=== PATIENT | male | born 1940 | race Caucasian/White ===

== ENCOUNTER 2016-11-08 19:29 | Emergency (ER) | payer MEDICARE, OTHER ==
[2016-11-08] MEDS ORDERED: guaiFENesin/CODEINE 5 ML UDC PO STA (20:16)
[2016-11-08] MEDS ORDERED: guaiFENesin/CODEINE 5 ML UDC ONE (20:19)
== END 2016-11-08 20:35 | disposition home or self-care (01) ==
DX: J06.9 Acute upper respiratory infection, unspecified (principal); B97.89 Other viral agents as the cause of diseases classified elsewhere; I11.0 Hypertensive heart disease with heart failure; I50.9 Heart failure, unspecified; E11.9 Type 2 diabetes mellitus without complications; Z79.84 Long term (current) use of oral hypoglycemic drugs; I25.10 Atherosclerotic heart disease of native coronary artery without angina pectoris; Z95.1 Presence of aortocoronary bypass graft; G47.30 Sleep apnea, unspecified
CPT/HCPCS: 71020; 99283; A9270

== ENCOUNTER 2016-12-01 15:44 | Outpatient (CLI) | payer MEDICARE, OTHER | END 2016-12-01 15:45 | disposition home or self-care (01) | DX: G47.33 Obstructive sleep apnea (adult) (pediatric) (principal); R53.83 Other fatigue | CPT/HCPCS: 99214; G0463 ==

== ENCOUNTER 2016-12-14 07:49 | Outpatient (CLI) | payer MEDICARE, OTHER | END 2016-12-14 07:50 | disposition home or self-care (01) | DX: G25.3 Myoclonus (principal); E78.00 Pure hypercholesterolemia, unspecified; E11.9 Type 2 diabetes mellitus without complications ==

== ENCOUNTER 2017-01-08 21:55 | Outpatient (CLI) | payer MEDICARE, OTHER | END 2017-01-08 21:56 | disposition home or self-care (01) | DX: G47.33 Obstructive sleep apnea (adult) (pediatric) (principal); G47.61 Periodic limb movement disorder; Z68.31 Body mass index [BMI] 31.0-31.9, adult ==

== ENCOUNTER 2017-01-26 13:43 | Outpatient (CLI) | payer MEDICARE, OTHER | END 2017-01-26 13:44 | disposition home or self-care (01) | LOC: SC 13:43 | PROVIDERS: ATTEND Nurse Practitioner Family | DX: G47.33 Obstructive sleep apnea (adult) (pediatric) (principal); G47.10 Hypersomnia, unspecified | CPT/HCPCS: 99214; G0463; 99212 ==

== ENCOUNTER 2017-02-24 16:36 | Outpatient (CLI) | payer MEDICARE, OTHER ==
--- NOTE | 2017-02-25 19:51 | XRAY Report ---
FOUR-VIEW CERVICAL SPINE, AP, LATERAL, SWIMMER'S, AND ODONTOID: 02/24/2017 CLINICAL HISTORY: Chronic neck pain. COMPARISON: Cervical spine CT 03/04/2013. FINDINGS: C-spine seen down to C7-T1 level on lateral to swimmer's view. Moderate to severe disk space narrowing is noted at C3-4 with progression as compared to preceding exam. Moderate degree of disk space narrowing is noted at C4-5, unchanged as compared to preceding exam. Moderate degree of disk space narrowing is noted at C5-6 with prominent anterior spur formation. This is unchanged as compared to preceding exam. Significant disk space narrowing is noted at C6-7 with mild anterior spur formation. This is unchanged. Mild spurring of the uncinate processes of C5, C6, and C7. Odontoid process shows no significant abnormality. Sternal wires sutures are seen and anterior mediastinal surgical clips are noted. IMPRESSION: SIGNIFICANT OSTEOARTHRITIS OF THE CERVICAL SPINE IS SEEN. SIGNIFICANT DEGENERATIVE DISC DISEASE IS NOTED AT MULTIPLE LEVELS WITH PROGRESSION AT C3-4 SINCE PRECEDING EXAM OF 03/04/2013. JOB #: [id number] EXT JOB #: [id number] [facility]
== END 2017-02-24 16:37 | disposition home or self-care (01) ==
LOC: DI 16:36
PROVIDERS: ATTEND Internal Medicine
DX: M47.892 Other spondylosis, cervical region (principal); M50.31 Other cervical disc degeneration, high cervical region
CPT/HCPCS: 72040

== ENCOUNTER 2017-03-29 10:00 | Outpatient (CLI) | payer MEDICARE, OTHER | END 2017-03-29 10:01 | disposition home or self-care (01) | LOC: SC 10:00 | PROVIDERS: ATTEND Nurse Practitioner Family | DX: G47.33 Obstructive sleep apnea (adult) (pediatric) (principal); G47.23 Circadian rhythm sleep disorder, irregular sleep wake type | CPT/HCPCS: 99215; G0463; 99212 ==

== ENCOUNTER 2017-04-15 13:17 | Outpatient (CLI) | payer MEDICARE, OTHER ==
[2017-04-15 18:02] LABS: HEMOGLOBIN A1C 0.75 g/dL
[2017-04-15 18:19] LABS: ALBUMIN/GLOBULIN RATIO 1.3 (1.0-2.2); BILIRUBIN,TOTAL 0.6 mg/dL (0.2-1.0); BUN - BLOOD UREA NITROGEN 15 mg/dL (6-20); CALCIUM 9.1 mg/dL (8.5-10.3); CARBON DIOXIDE - CO2 29 mmol/L (21-32); CHLORIDE 104 mmol/L (101-111); CHOL/HDL RATIO 4.5 (<5.0); CHOLESTEROL 125 mg/dL; GFR - MDRD 72 (>89); GLUCOSE 129 mg/dL (70-100); HDL CHOLESTEROL 28 mg/dL; LDL/HDL RATIO 2.4 (<3.6); POTASSIUM 4.4 mmol/L (3.5-5.0); SODIUM 139 mmol/L (135-145); TOTAL PROTEIN 7.1 g/dL (6.7-8.2); TRIGLYCERIDES 153 mg/dL; VLDL CHOLESTEROL 31 mg/dL
== END 2017-04-15 13:18 | disposition home or self-care (01) ==
LOC: LAB.F 13:17
PROVIDERS: ATTEND Internal Medicine
DX: E78.00 Pure hypercholesterolemia, unspecified (principal); E11.51 Type 2 diabetes mellitus with diabetic peripheral angiopathy without gangrene; I10 Essential (primary) hypertension; E29.1 Testicular hypofunction
CPT/HCPCS: 36415; 80053; 80061; 83036; 84403

== ENCOUNTER 2017-04-22 13:55 | Outpatient (CLI) | payer MEDICARE, OTHER ==
--- NOTE | 2017-04-22 17:39 | CT Report ---
CT HEAD WITHOUT CONTRAST: 04/22/2017 CLINICAL INDICATION: Increasing vertigo, right carotid bruit. Axial CT images of the brain were obtained without contrast. In accordance with CT protocol optimization, one or more of the following dose reduction techniques w ere utilized for this exam: automated exposure control, adjustment of mA and/or KV based on patient size, or use of iterative reconstructive technique. COMPARISON: 02/21/2016 The ventricles and sulci again demonstrate symmetric enlargement, compatible with atrophy. The basil ar cisterns are patent. There is no evidence of intracranial hemorrhage, mass effect, or midline kandi ft. The visualized orbital contents are unremarkable. Patchy ethmoid sinus disease is again noted, stable. IMPRESSION: STABLE ATROPHY AND CHRONIC SINUS DISEASE. NO EVIDENCE OF ACUTE HEMORRHAGE OR MASS EFFEC T. JOB #: [id number] EXT JOB #:[id number]
== END 2017-04-22 13:56 | disposition home or self-care (01) ==
LOC: DI 13:55
PROVIDERS: ATTEND Family Medicine
DX: G31.9 Degenerative disease of nervous system, unspecified (principal); J32.9 Chronic sinusitis, unspecified
CPT/HCPCS: 70450

== ENCOUNTER 2017-04-23 10:16 | Outpatient (CLI) | payer MEDICARE, OTHER ==
--- NOTE | 2017-04-23 12:01 | Ultrasound Report ---
CAROTID DUPLEX: 04/23/2017 CLINICAL INDICATION: Bruit. TECHNIQUE: Real-time sonographic vascular imaging was performed by the inside outside sales representative through the carotid arteries utilizing both color-flow and Doppler spectral analysis. Multiple residential sales representative static images were saved for review. Vessel PSV cm/sec 2D Plaque Estimate % ICA/CCA PSV EDV cm/sec % Stenosis RCCA Prox 76.6 -- RCCA Dist 82.2 8 RECA 129 -- RT BULB 50 -- 0.6 10 CIPRIANO Prox 66 -- 0.8 15 CIPRIANO Mid 64 -- 0.78 12 CIPRIANO Dist 88 -- 1.0 20 RVA 39 RVA flow direction: Antegrade. Vessel PSV cm/sec 2D Plaque Estimate % ICA/CCA PSV EDV cm/sec % Stenosis LCCA Prox 137 -- LCCA Dist 78 20 LECA 54 -- LFT BULB 85 -- 1.0 15 LICA Prox 75 -- 0.96 15 LICA Mid 157 -- 2.01 20 LICA Dist 100 -- 1.28 20 LVA 46 LVA flow direction: Antegrade. Velocity criteria are extrapolated from diameter data as defined by the Society of Radiologists in Ultrasound Consensus Conference Radiology 2003; 229; 340-346. Degree of Stenosis % ICA PSV cm/sec Plaque Estimate % ICA/CCA RSV Ratio ICA EDV cm/sec Normal < 125 None < 2.0 < 40 <50 < 125 < 50 < 2.0 < 40 50-69 125 - 130 >/= 50 2.0 - 4.0 40 - 100 >/= 70 but less than near occlusion > 230 >/= 50 > 4.0 > 100 Near occlusion High, low, or undetectable Visible lumen Variable Variable Total occlusion Undetectable No detectable lumen Not applicable Not applicable FINDINGS: RIGHT: There is minimal plaquing in the right carotid bifurcation, without evidence of a focal hemodynamically significant carotid stenosis. LEFT: There is minimal plaquing in the left carotid bifurcation, without evidence of a focal hemodynamically significant carotid stenosis. The vertebral arteries demonstrate antegrade flow bilaterally. IMPRESSION: MINIMAL PLAQUING BILATERALLY, BUT NO EVIDENCE OF A FOCAL HEMODYNAMICALLY SIGNIFICANT CAROTID STENOSIS. MTDD
== END 2017-04-23 10:17 | disposition home or self-care (01) ==
LOC: DI 10:16
PROVIDERS: ATTEND Family Medicine
DX: R42 Dizziness and giddiness (principal); R09.89 Other specified symptoms and signs involving the circulatory and respiratory systems
CPT/HCPCS: 93880

== ENCOUNTER 2017-05-06 08:22 | Outpatient (CLI) | payer MEDICARE, OTHER ==
--- NOTE | 2017-05-06 10:01 | Ultrasound Report ---
LIVER ULTRASOUND: 05/06/2017 CLINICAL INDICATION: Cirrhosis. TECHNIQUE: Real-time scanning was performed with c s s representative static images obtained. COMPARISON: CT 06/15/2011. FINDINGS: The liver measures 14.7 cm. There is a small hypoechoic nodule in the inferior aspect of the right lobe, measuring 1.7 x 1.3 x 1.2 cm, suspicious for neoplasm. Consider MRI of the liver for further evaluation. The common bile duct measures 5 mm. The patient is status post cholecystectomy . The remainder of the liver is echogenic, but the contour is not particularly nodular. IMPRESSION: A 1.7 CM HYPOECHOIC NODULE IN THE INFERIOR RIGHT LOBE OF THE LIVER, SUSPICIOUS FOR NEOPL ASM. FURTHER EVALUATION WITH LIVER MRI IS RECOMMENDED. JOB #: [id number] EXT JOB #:
== END 2017-05-06 08:23 | disposition home or self-care (01) ==
LOC: DI 08:22
PROVIDERS: ATTEND Internal Medicine
DX: K74.69 Other cirrhosis of liver (principal); K76.89 Other specified diseases of liver
CPT/HCPCS: 76705

== ENCOUNTER 2017-05-13 08:08 | Outpatient (CLI) | payer MEDICARE, OTHER ==
[2017-05-13] MEDS ORDERED: IOPAMIDOL-300 100 ML VIAL IVP ONE (09:13)
--- NOTE | 2017-05-13 12:33 | CT Report ---
CT ABDOMEN WITH AND WITHOUT CONTRAST: 05/13/2017 CLINICAL INDICATION: Possible liver lesion on ultrasound. TECHNIQUE: Axial CT images of the abdomen were obtained prior to and following 100 mL Isovue-300, in early arterial, portal venous, and delayed phases. In accordance with CT protocol optimization, one or more of the following dose reduction techniques w ere utilized for this exam: automated exposure control, adjustment of mA and/or KV based on patient size, or use of iterative reconstructive technique. COMPARISON: Ultrasound 05/06/2017, CT 06/15/2011. FINDINGS: Limited evaluation of the lung bases is unremarkable. Abdomen: The liver demonstrates a mildly nodular contour, compatible with cirrhosis. No focal paren chymal lesion is identified on any phase of contrast enhancement. Specifically, no mass is appreciat ed in the inferior right lobe, at the site questioned on ultrasound. No intrahepatic biliary dilatat ion is seen. The patient is status post cholecystectomy. The spleen, pancreas, right kidney, and ad renal glands are unremarkable. The left kidney demonstrates a cortical cyst. Postoperative changes are present at the gastroesophageal junction. No bowel dilatation, free gas, or free fluid is presen t. Osseous structures demonstrate degenerative changes. IMPRESSION: NO FOCAL LIVER MASS APPRECIATED IN THE INFERIOR RIGHT LOBE OF THE LIVER, AT THE SITE QUE STIONED ON ULTRASOUND. JOB #: [id number] EXT JOB #:[id number]
== END 2017-05-13 08:09 | disposition home or self-care (01) ==
LOC: DI 08:08
PROVIDERS: ATTEND Internal Medicine
DX: R16.0 Hepatomegaly, not elsewhere classified (principal)
CPT/HCPCS: 74160; Q9967

== ENCOUNTER 2017-07-07 13:35 | Outpatient (CLI) | payer MEDICARE, OTHER | END 2017-07-07 13:36 | disposition home or self-care (01) | LOC: SC 13:35 | PROVIDERS: ATTEND Nurse Practitioner Family | DX: G47.33 Obstructive sleep apnea (adult) (pediatric) (principal); G47.23 Circadian rhythm sleep disorder, irregular sleep wake type | CPT/HCPCS: 99214; G0463; 99212 ==

== ENCOUNTER 2017-09-09 13:57 | Outpatient (CLI) | payer MEDICARE, OTHER | END 2017-09-09 13:58 | disposition home or self-care (01) | LOC: SC 13:57 | PROVIDERS: ATTEND Nurse Practitioner Family | DX: G47.33 Obstructive sleep apnea (adult) (pediatric) (principal) | CPT/HCPCS: 99214; G0463; 99212 ==

== ENCOUNTER 2017-10-13 10:47 | Outpatient (CLI) | payer MEDICARE, OTHER ==
--- NOTE | 2017-10-13 13:47 | XRAY Report ---
THREE VIEW LEFT FOOT: 10/13/2017 CLINICAL INDICATION: Left foot pain. FINDINGS: AP, lateral, oblique views of the left foot demonstrate mild degenerative changes, with plantar calcaneal spurring. There is no evidence of acute fracture or dislocation. Surgical clips are noted at the level of the ankle. IMPRESSION: MILD OSTEOARTHRITIS. TD: 10/13/2017 13:46
== END 2017-10-13 10:48 | disposition home or self-care (01) ==
LOC: DI 10:47
PROVIDERS: ATTEND Physician Assistant Medical
DX: M19.072 Primary osteoarthritis, left ankle and foot (principal)

== ENCOUNTER 2017-10-21 12:27 | Outpatient (CLI) | payer MEDICARE, OTHER ==
--- NOTE | 2017-10-21 17:15 | XRAY Report ---
THREE VIEW RIGHT HAND: 10/21/2017 CLINICAL INDICATION: Pain. FINDINGS: AP, lateral, oblique views of the right hand demonstrate mild osteoarthritis of the first carpometacarpal and metacarpophalangeal joints. There is no evidence of acute fracture. Surgical clips are noted in the palmar soft tissues of the wrist. IMPRESSION: MILD OSTEOARTHRITIS. TD: 10/21/2017 17:13
== END 2017-10-21 12:28 | disposition home or self-care (01) ==
LOC: DI 12:27
PROVIDERS: ATTEND Nurse Practitioner Family
DX: M19.041 Primary osteoarthritis, right hand (principal); M18.11 Unilateral primary osteoarthritis of first carpometacarpal joint, right hand

== ENCOUNTER 2017-11-08 16:31 | Outpatient (CLI) | payer MEDICARE, OTHER ==
--- NOTE | 2017-11-10 12:06 | Ultrasound Report ---
BILATERAL LOWER EXTREMITY ARTERIAL DUPLEX: 11/08/2017 CLINICAL INDICATION: Pain, left greater than right feet, history of cardiac disease. TECHNIQUE: Real-time sonographic vascular imaging was performed by the machine bobbin winder through the lower extremities utilizing both color-flow and Doppler spectral analysis. Multiple field representative static images were saved for review. RIGHT SIDE SITE PSV WAVEFORM STEN CLASSROOM TECHNOLOGY TECHNICIAN 161 biphasic PSFA 103 biphasic MSFA 145 biphasic DSFA 178 biphasic PFA 312 biphasic POP 49 biphasic SUSI 48 biphasic PLATE GLASS GRINDER 45 biphasic PER 48 biphasic DPA 48 biphasic LEFT SIDE SITE PSV WAVEFORM STEN CLASSROOM TECHNOLOGY TECHNICIAN 89 biphasic PSFA 129 biphasic MSFA 175 biphasic DSFA 92 biphasic PFA 40 biphasic POP 52 biphasic SUSI 44 biphasic PLATE GLASS GRINDER 44 biphasic PER 50 biphasic DPA 73 biphasic FINDINGS RIGHT LEG: Waveforms are diffusely biphasic. There is no evidence of a focal velocity increase to suggest a hemodynamically significant stenosis. LEFT LEG: Waveforms are diffusely biphasic. There is no evidence of a focal velocity increase to suggest a hemodynamically significant stenosis. IMPRESSION: NO EVIDENCE OF A HEMODYNAMICALLY SIGNIFICANT ARTERIAL STENOSIS IN EITHER LEG. BILATERAL BIPHASIC WAVEFORMS, SUGGESTIVE OF INFLOW DISEASE. MTDD
== END 2017-11-08 16:32 | disposition home or self-care (01) ==
LOC: DI 16:31
PROVIDERS: ATTEND Podiatrist
DX: M79.671 Pain in right foot (principal); M79.672 Pain in left foot; E11.51 Type 2 diabetes mellitus with diabetic peripheral angiopathy without gangrene
CPT/HCPCS: 93925

== ENCOUNTER 2017-11-15 15:08 | Outpatient (CLI) | payer MEDICARE, OTHER ==
[2017-11-15 15:44] LABS: CREATININE 0.9 mg/dL (0.6-1.2)
== END 2017-11-15 15:09 | disposition home or self-care (01) ==
LOC: LAB 15:08
PROVIDERS: ATTEND Physician Assistant Medical
DX: B35.1 Tinea unguium (principal); Z79.899 Other long term (current) drug therapy
CPT/HCPCS: 36415; 82565; 84450; 84460

== ENCOUNTER 2018-02-07 11:36 | Outpatient (CLI) | payer MEDICARE, OTHER ==
[2018-02-07 18:54] LABS: ALT ALANINE AMINOTRANSFERASE 27 IU/L (10-60); AST ASPARTATE AMINOTRANSFERASE 26 IU/L (10-42)
== END 2018-02-07 11:37 | disposition home or self-care (01) ==
LOC: LAB.F 11:36
PROVIDERS: ATTEND Physician Assistant Medical
DX: B35.1 Tinea unguium (principal); Z79.899 Other long term (current) drug therapy
CPT/HCPCS: 36415; 84450; 84460

== ENCOUNTER 2018-03-10 10:27 | Outpatient (CLI) | payer MEDICARE, OTHER ==
--- NOTE | 2018-03-10 12:12 | Ultrasound Report ---
Procedure Date: 03/10/2018 Accession Number: [id number] / [id number] Procedure: US - Abdomen Complete CPT Code: FULL RESULT: EXAM: Abdomen Complete DATE: 03/10/2018 11:33 AM CLINICAL HISTORY: HX OF CIRRHOSIS COMPARISON: CT 05/13/2017, ultrasound 05/06/2017 TECHNIQUE: Real-time scanning was performed with static images obtained. FINDINGS: Liver: The liver is echogenic, compatible with fatty infiltration. 16 cm. Main portal vein flow: Hepatopetal. The previously noted nodule in the right lobe of the liver is again seen. It now measures 2.1 x 1.6 x 1.3 cm (previously 1.7 x 1.3 x 1.2 cm). Gallbladder: Status post cholecystectomy. Biliary System: Common bile duct measures 2 mm. No intrahepatic or extrahepatic ductal dilatation. Pancreas: Visualized portion is unremarkable. Kidneys: Right: 11 cm longitudinally. Normal. No contour-deforming mass, stones, or hydronephrosis. Left: 9.5 cm longitudinally. 1.9 cm cortical cyst. No solid renal mass or hydronephrosis. Spleen: 10 cm. Normal in size and echotexture. Aorta and Inferior Vena Cava: Unremarkable. IMPRESSION: Circumscribed nodule in the right lobe of the liver has increased in size, now measuring 2.1 cm. Given the previous lack of CT correlate, consider MRI of the liver for further evaluation. RADIA
== END 2018-03-10 10:28 | disposition home or self-care (01) ==
LOC: DI 10:27
PROVIDERS: ATTEND Neurological Surgery
DX: K74.69 Other cirrhosis of liver (principal); K76.89 Other specified diseases of liver
CPT/HCPCS: 76700

== ENCOUNTER 2018-03-24 13:50 | Outpatient (CLI) | payer MEDICARE, OTHER ==
[2018-03-24 18:14] LABS: ALT ALANINE AMINOTRANSFERASE 33 IU/L (10-60); AST ASPARTATE AMINOTRANSFERASE 27 IU/L (10-42)
== END 2018-03-24 13:51 | disposition home or self-care (01) ==
LOC: LAB.F 13:50
PROVIDERS: ATTEND Physician Assistant Medical
DX: B35.1 Tinea unguium (principal); Z79.899 Other long term (current) drug therapy
CPT/HCPCS: 36415; 84450; 84460

== ENCOUNTER 2018-05-03 11:24 | Outpatient (CLI) | payer MEDICARE, OTHER ==
[2018-05-03 19:16] LABS: ALBUMIN 3.9 g/dL (3.2-5.5); ALBUMIN/GLOBULIN RATIO 1.2 (1.0-2.2); ALKALINE PHOSPHATASE 72 IU/L (42-121); ALT ALANINE AMINOTRANSFERASE 33 IU/L (10-60); AST ASPARTATE AMINOTRANSFERASE 28 IU/L (10-42); BILIRUBIN,TOTAL 0.6 mg/dL (0.2-1.0); BUN - BLOOD UREA NITROGEN 16 mg/dL (6-20); CARBON DIOXIDE - CO2 26 mmol/L (21-32); CHLORIDE 104 mmol/L (101-111); CHOL/HDL RATIO 6.1 (<5.0); CHOLESTEROL 231 mg/dL; CREATININE 0.8 mg/dL (0.6-1.2); GFR - MDRD 93 (>89); GLUCOSE 150 mg/dL (70-100); HDL CHOLESTEROL 38 mg/dL; LDL CHOLESTEROL,CALCULATED 158 mg/dL; LDL/HDL RATIO 4.2 (<3.6); SODIUM 138 mmol/L (135-145); TOTAL PROTEIN 7.1 g/dL (6.7-8.2); VLDL CHOLESTEROL 35 mg/dL
[2018-05-03 20:07] LABS: HEMOGLOBIN A1C 0.83 g/dL; HEMOGLOBIN A1C % 6.9 % (4.6-6.2)
== END 2018-05-03 11:25 | disposition home or self-care (01) ==
LOC: LAB.F 11:24
PROVIDERS: ATTEND Physician Assistant Medical
DX: K74.60 Unspecified cirrhosis of liver (principal); E11.51 Type 2 diabetes mellitus with diabetic peripheral angiopathy without gangrene
CPT/HCPCS: 36415; 80053; 80061; 82043; 83036; 83721

== ENCOUNTER 2018-05-04 12:00 | Outpatient (CLI) | payer MEDICARE, OTHER | END 2018-05-04 12:01 | disposition home or self-care (01) | LOC: LAB.R 12:00 | PROVIDERS: ATTEND Physician Assistant Medical | DX: K74.69 Other cirrhosis of liver (principal); E11.51 Type 2 diabetes mellitus with diabetic peripheral angiopathy without gangrene | CPT/HCPCS: 82043 ==

== ENCOUNTER 2018-09-16 10:16 | Outpatient (CLI) | payer MEDICARE, OTHER | END 2018-09-16 10:17 | disposition home or self-care (01) | LOC: LAB.F 10:16 | PROVIDERS: ATTEND Physician Assistant Medical | DX: E29.1 Testicular hypofunction (principal) | CPT/HCPCS: 36415; 81599; 84402; 84403 ==

== ENCOUNTER 2018-11-23 09:55 | Outpatient (CLI) | payer MEDICARE, OTHER ==
[2018-11-23 17:53] LABS: CHOL/HDL RATIO 6.1 (<5.0); CHOLESTEROL 201 mg/dL; HDL CHOLESTEROL 33 mg/dL; LDL CHOLESTEROL,CALCULATED 138 mg/dL; LDL/HDL RATIO 4.2 (<3.6); VLDL CHOLESTEROL 30 mg/dL
[2018-11-23 18:45] LABS: HB2 TOTAL 15.3 g/dL; HEMOGLOBIN A1C 0.88 g/dL; HEMOGLOBIN A1C % 7.4 % (4.6-6.2)
== END 2018-11-23 09:56 | disposition home or self-care (01) ==
LOC: LAB.F 09:55
PROVIDERS: ATTEND Registered Nurse
DX: E11.319 Type 2 diabetes mellitus with unspecified diabetic retinopathy without macular edema (principal)
CPT/HCPCS: 36415; 80061; 83036; 83721; 84443

== ENCOUNTER 2019-01-03 10:09 | Outpatient (CLI) | payer MEDICARE, OTHER | END 2019-01-03 10:10 | disposition home or self-care (01) | LOC: SC 10:09 | PROVIDERS: ATTEND Nurse Practitioner Family | DX: G47.33 Obstructive sleep apnea (adult) (pediatric) (principal); G47.9 Sleep disorder, unspecified | CPT/HCPCS: 99215; G0463; 99212 ==

== ENCOUNTER 2019-09-20 11:10 | Outpatient (CLI) | payer MEDICARE, OTHER ==
[2019-09-20 17:09] LABS: BILIRUBIN,URINE NEGATIVE (NEGATIVE); GLUCOSE, URINE (UA) NEGATIVE (NEGATIVE); KETONES,URINE (UA) NEGATIVE (NEGATIVE); LEUKOCYTE ESTERASE, URINE NEGATIVE (NEGATIVE); NITRITE,URINE NEGATIVE (NEGATIVE); OCCULT BLOOD,URINE NEGATIVE (NEGATIVE); PROTEIN,URINE NEGATIVE (NEGATIVE); UROBILINOGEN,URINE 0.2 (NORMAL) E.U./dL (NORMAL)
[2019-09-20 17:11] LABS: CALCIUM 9.2 mg/dL (8.5-10.3)
[2019-09-20 17:18] LABS: HB2 TOTAL 14.5 g/dL; HEMOGLOBIN A1C 0.74 g/dL; HEMOGLOBIN A1C % 6.8 % (4.6-6.2)
[2019-09-20 17:36] LABS: BACTERIA,URINE None Seen /HPF (None Seen); CLARITY,URINE CLEAR (CLEAR); RBC,URINE None Seen /HPF (0-5); SQUAMOUS EPITHELIAL CELL,UR NONE SEEN (<= Few)
== END 2019-09-20 11:11 | disposition home or self-care (01) ==
LOC: LAB.S 11:10
PROVIDERS: ATTEND Urology
DX: N32.0 Bladder-neck obstruction (principal); E11.8 Type 2 diabetes mellitus with unspecified complications; N40.0 Benign prostatic hyperplasia without lower urinary tract symptoms; R81 Glycosuria; R39.15 Urgency of urination
CPT/HCPCS: 36415; 80048; 81001; 83036; 85014; 85018; 87086

== ENCOUNTER 2019-10-27 13:04 | Outpatient (CLI) | payer MEDICARE, OTHER ==
[2019-10-27 17:29] LABS: BASOPHILS % (AUTO) 0.6 %; EOSINOPHILS # (AUTO) 0.3 10^3/uL (0.0-0.7); EOSINOPHILS % (AUTO) 4.2 %; HGB - HEMOGLOBIN 13.8 g/dL (14.0-18.0); LYMPHOCYTES # (AUTO) 1.5 10^3/uL (1.5-3.5); LYMPHOCYTES % (AUTO) 23.8 %; MEAN CORPUSCULAR HEMOGLOBIN 30.6 pg (27.0-31.0); MEAN CORPUSCULAR HGB CONC 32.7 g/dL (32.0-36.0); MEAN CORPUSCULAR VOLUME 93.6 fL (80.0-94.0); MEAN PLATELET VOLUME 12.6 fL (7.4-11.4); MONOCYTES # (AUTO) 0.6 10^3/uL (0.0-1.0); MONOCYTES % (AUTO) 9.2 %; NEUTROPHILS # (AUTO) 3.8 10^3/uL (1.5-6.6); NEUTROPHILS % (AUTO) 61.9 %; PLT - PLATELET COUNT 218 10^3/uL (130-450); RED BLOOD COUNT 4.51 10^6/uL (4.70-6.10); RED CELL DISTRIBUTION WIDTH 13.8 % (12.0-15.0); WHITE BLOOD COUNT 6.2 x10^3/uL (4.8-10.8)
[2019-10-27 18:44] LABS: ALBUMIN 4.2 g/dL (3.2-5.5); ALBUMIN/GLOBULIN RATIO 1.3 (1.0-2.2); BILIRUBIN,TOTAL 0.7 mg/dL (0.2-1.0); CALCIUM 9.3 mg/dL (8.5-10.3); CREATININE 0.9 mg/dL (0.6-1.2); TOTAL PROTEIN 7.5 g/dL (6.7-8.2)
== END 2019-10-27 13:05 | disposition home or self-care (01) ==
LOC: LAB.S 13:04
PROVIDERS: ATTEND Physician Assistant Medical
DX: I10 Essential (primary) hypertension (principal); E55.9 Vitamin D deficiency, unspecified; E29.1 Testicular hypofunction; R53.83 Other fatigue
CPT/HCPCS: 36415; 80053; 81599; 82306; 84402; 84403; 84443; 85025

== ENCOUNTER 2020-01-05 11:37 | Outpatient (CLI) | payer MEDICARE, OTHER | END 2020-01-05 11:38 | disposition home or self-care (01) | LOC: LAB 11:37 | PROVIDERS: ATTEND Physician Assistant Medical | DX: E29.1 Testicular hypofunction (principal) | CPT/HCPCS: 36415; 81599; 84402; 84403 ==

== ENCOUNTER 2020-02-16 09:02 | Outpatient (CLI) | payer MEDICARE, OTHER ==
[2020-02-16 14:42] LABS: BASOPHILS # (AUTO) 0.1 10^3/uL (0.0-0.1); BASOPHILS % (AUTO) 0.8 %; EOSINOPHILS # (AUTO) 0.3 10^3/uL (0.0-0.7); EOSINOPHILS % (AUTO) 4.5 %; HGB - HEMOGLOBIN 15.4 g/dL (14.0-18.0); LYMPHOCYTES % (AUTO) 26.9 %; MEAN CORPUSCULAR HEMOGLOBIN 29.6 pg (27.0-31.0); MEAN CORPUSCULAR HGB CONC 31.6 g/dL (32.0-36.0); MEAN CORPUSCULAR VOLUME 93.7 fL (80.0-94.0); MEAN PLATELET VOLUME 12.8 fL (7.4-11.4); MONOCYTES # (AUTO) 0.7 10^3/uL (0.0-1.0); MONOCYTES % (AUTO) 9.5 %; NEUTROPHILS # (AUTO) 4.2 10^3/uL (1.5-6.6); NEUTROPHILS % (AUTO) 57.9 %; PLT - PLATELET COUNT 224 10^3/uL (130-450); RED BLOOD COUNT 5.21 10^6/uL (4.70-6.10); RED CELL DISTRIBUTION WIDTH 14.1 % (12.0-15.0); WHITE BLOOD COUNT 7.3 x10^3/uL (4.8-10.8)
[2020-02-16 15:14] LABS: ALBUMIN 4.3 g/dL (3.2-5.5); ALBUMIN/GLOBULIN RATIO 1.3 (1.0-2.2); ALKALINE PHOSPHATASE 72 IU/L (42-121); ALT ALANINE AMINOTRANSFERASE 42 IU/L (10-60); AST ASPARTATE AMINOTRANSFERASE 30 IU/L (10-42); BILIRUBIN,TOTAL 0.7 mg/dL (0.2-1.0); BUN - BLOOD UREA NITROGEN 18 mg/dL (6-20); CALCIUM 9.3 mg/dL (8.5-10.3); CARBON DIOXIDE - CO2 28 mmol/L (21-32); CHLORIDE 101 mmol/L (101-111); CHOL/HDL RATIO 5.7 (<5.0); CHOLESTEROL 198 mg/dL; GLUCOSE 119 mg/dL (70-100); HDL CHOLESTEROL 35 mg/dL; LDL CHOLESTEROL,CALCULATED 133 mg/dL; LDL/HDL RATIO 3.8 (<3.6); SODIUM 138 mmol/L (135-145); TOTAL PROTEIN 7.5 g/dL (6.7-8.2); VLDL CHOLESTEROL 30 mg/dL
[2020-02-16 15:33] LABS: HB2 TOTAL 16.2 g/dL; HEMOGLOBIN A1C 0.74 g/dL; HEMOGLOBIN A1C % 6.3 % (4.6-6.2)
== END 2020-02-16 09:03 | disposition home or self-care (01) ==
LOC: LAB.S 09:02
PROVIDERS: ATTEND Physician Assistant Medical
DX: I10 Essential (primary) hypertension (principal); E78.00 Pure hypercholesterolemia, unspecified; E55.9 Vitamin D deficiency, unspecified; E11.319 Type 2 diabetes mellitus with unspecified diabetic retinopathy without macular edema; E29.1 Testicular hypofunction; R53.83 Other fatigue
CPT/HCPCS: 36415; 80053; 80061; 81599; 82306; 83036; 83721; 84402; 84403; 84443; 85025

== ENCOUNTER 2020-03-30 10:21 | Emergency (ER) | payer MEDICARE, OTHER ==
--- NOTE | 2020-03-30 10:28 | ED Physician Documentation ---
PD HPI HEAD INJURY - Stated complaint Stated Complaint: HEAD INJ/GLF - History obtained from History obtained from: Patient - History of Present Illness Mechanism of head injury: Fell (He awoke from sleep beside the bed feeling an abrupt injury of his head. His heard a thud and came immediately to the room and saw him with blankets wrapped around his legs. Unclear if he rolled out of bed or was trying to get up partly asleep and fell. says talkative right off but groggy) Where head injury occurred: Home Timing - onset: How many hours ago (1/2), Today Location of injury: Front Quality of pain: Throbbing, Aching Associated symptoms: AMS ( says groggy for few minutes then alert.), Neck pain. No: LOC, Nausea / vomiting Symptoms worsen with: Palpation Contributing factors: No: Anticoagulated, Intoxicated Similar symptoms before: Has not had sx before Review of Systems Constitutional: denies: Fever, Chills Nose: denies: Rhinorrhea / runny nose, Congestion Throat: denies: Sore throat Cardiac: denies: Chest pain / pressure Respiratory: denies: Cough GI: denies: Abdominal Pain, Nausea, Vomiting, Diarrhea Musculoskeletal: reports: Neck pain, Other (abrasion left knee). denies: Back pain Neurologic: reports: Generalized weakness (baseline due to neuropathy, does not feel worse than usual). denies: Focal weakness, Numbness PD PAST MEDICAL HISTORY - Past Medical History Cardiovascular: Congestive heart failure, Hypertension, Coronary artery disease, Other Respiratory: Sleep apnea, CPAP use Endocrine/Autoimmune: Type 2 diabetes GI: GERD, Esophageal varices, Cirrhosis, Other : Nocturia, Frequency, Other HEENT: Chronic vision loss, Chronic hearing loss Psych: Depression Musculoskeletal: Osteoarthritis, Chronic back pain Derm: Other - Past Surgical History Past Surgical History: Yes General: Cholecystectomy, Hiatal hernia repair, Other Ortho: Rotator cuff repair, Carpal Tunnel surgery, Other Cardiovascular: CABG - Present Medications Home Medications: Ambulatory Orders Medication Instructions Recorded Confirmed Esomeprazole Magnesium [Nexium] 40 mg PO BID 03/04/13 11/08/16 Gabapentin [Neurontin] 900 mg PO TID 03/04/13 11/08/16 Venlafaxine [Effexor] 75 mg PO BID 03/04/13 11/08/16 atenoloL [Tenormin] 100 mg PO DAILY 03/04/13 11/08/16 metFORMIN [Glucophage] 500 mg PO DAILY 03/04/13 11/08/16 Albuterol Sulfate [Ventolin Hfa] 8 gm IH Q4H PRN 03/14/14 11/08/16 Desonide 59 ml TP BID 03/14/14 11/08/16 Fluticasone [Flonase] 1 sprays CHAPIS DAILY PRN 03/14/14 11/08/16 Nitroglycerin [Nitrostat] 0.4 mg SL Q5MIN PRN 03/14/14 11/08/16 Simvastatin [Zocor] 80 mg PO QPM 03/14/14 11/08/16 buPROPion [Wellbutrin Sr] 150 mg PO BID 03/14/14 11/08/16 guaiFENesin/CODEINE [Robitussin AC] 5 - 10 ml PO Q6H PRN #120 ml 11/08/16 - Allergies Allergies/Adverse Reactions: Allergies Allergy/AdvReac Type Severity Reaction Status Date / Time No Known Drug Allergies Allergy Verified 03/30/20 10:35 - Social History Does the pt smoke?: No Smoking Status: Never smoker Does the pt drink ETOH?: No Does the pt have substance abuse?: No - Immunizations Immunizations are current?: Yes - POLST Patient has POLST: No PD ED PE NORMAL - Vitals Vital signs reviewed: Yes - General General: Alert and oriented X 3, Well developed/nourished - HEENT HEENT: PERRL, EOMI, Moist mucous membranes, Other (The right forehead shows localized very small abrasion and swelling with tenderness of the soft tissue. There is some mild tenderness in the mid to lower paracervical muscles but not midline per se) - Neck Neck: Supple, no meningeal sign, No adenopathy - Cardiac Cardiac: RRR, No murmur - Respiratory Respiratory: Clear bilaterally - Abdomen Abdomen: Soft, Non tender - Back Back: No spinal TTP - Derm Derm: Normal color, Warm and dry - Extremities Extremities: No deformity (but has superficial abrasion left infrapatellar area), No tenderness to palpate - Neuro Neuro: Alert and oriented X 3, auto garage mechanic 2-12 intact, No motor deficit, No sensory deficit, Normal speech Eye Opening: Spontaneous Motor: Obeys Commands Verbal: Oriented GCS Score: 15 Results - Vitals Vitals: Vital Signs - 24 hr 03/30/20 10:29 Temperature 36.6 C Heart Rate 60 Respiratory 18 Rate Blood Pressure 159/54 H O2 Saturation 100 Oxygen O2 Source Room air - Rads (name of study) head CT Radiology: Prelim report reviewed (No intracranial hemorrhage no acute abnormality), See rad report cervical spine CT Radiology: Prelim report reviewed (No fractures), See rad report PD MEDICAL DECISION MAKING - ED course Complexity details: re-evaluated patient (Still awake and alert without any altered mentation or new pains on recheck. CT scans appear normal.), considered differential (Given some neck discomfort and also a some headache, will obtain imaging of the neck and head.), d/w patient Departure - Departure Disposition: 01 Home, Self Care Clinical Impression: Fall from bed, initial encounter Forehead contusion Qualifiers: Encounter type: initial encounter Qualified Code(s): S00.83XA - Contusion of other part of head, initial encounter Neck muscle strain Qualifiers: Encounter type: initial encounter Qualified Code(s): S16.1XXA - Strain of muscle, fascia and tendon at neck level, initial encounter Condition: Stable Record reviewed to determine appropriate education?: Yes Follow-Up: LYNDA SARGENT PA-C [Primary Care Provider] - Comments: Your scans of the head and neck are normal without any signs of bleeding fracture or acute abnormality. You will likely have a little bit of a headache and some stiffness in the neck. Tylenol ibuprofen as needed for pains.
[2020-03-30] MEDS ORDERED: ACETAMINOPHEN 325 MG TABLET PO STA (10:47)
--- NOTE | 2020-03-30 12:02 | CT Report ---
PROCEDURE: HEAD WO INDICATIONS: fall from bed; frontal contusion/headache TECHNIQUE: Noncontrast 4.5 mm thick angled axial sections acquired from the foramen magnum to the vertex. For r adiation dose reduction, the following was used: automated exposure control, adjustment of mA and/or kV according to patient size. COMPARISON: None. FINDINGS: Image quality: Excellent. CSF spaces: Basal cisterns are patent. No extra-axial fluid collections. Ventricles are normal in size and shape. Brain: No midline shift. No intracranial masses or hemorrhage. Goodman-white matter interface is norm al. Skull and face: Calvarium and visualized facial bones are intact, without suspicious lesions. Sinuses: Visualized sinuses and mastoids are clear. IMPRESSION: No acute intracranial abnormality. Reviewed by: Jenny Montiel MD on 03/30/2020 12:01 PM PDT Approved by: Jenny Montiel MD on 03/30/2020 12:01 PM PDT Station ID: [id number]
--- NOTE | 2020-03-30 12:03 | CT Report ---
PROCEDURE: CERVICAL SPINE WO INDICATIONS: fall from bed, pain neck TECHNIQUE: Noncontrast 3 mm thick sections acquired from the skull base to the T4 level. Sagittal and coronal r eformats were then constructed. For radiation dose reduction, the following was used: automated exp osure control, adjustment of mA and/or kV according to patient size. COMPARISON: None. FINDINGS: Image quality: Excellent. Bones: No fractures or dislocations. Visualized superior ribs are intact. Multilevel degenerative disc and facet disease. Soft tissues: Prevertebral soft tissues are normal in thickness. No paravertebral hematomas. No ap ical pneumothoraces. IMPRESSION: No fracture. Reviewed by: Jenny Montiel MD on 03/30/2020 12:02 PM PDT Approved by: Jenny Montiel MD on 03/30/2020 12:02 PM PDT Station ID: [id number]
[2020-03-30 12:39] VITALS: BP 170/55
== END 2020-03-30 12:36 | disposition home or self-care (01) ==
LOC: ED 10:21
DX: S16.1XXA Strain of muscle, fascia and tendon at neck level, initial encounter (principal); S00.83XA Contusion of other part of head, initial encounter; S80.212A Abrasion, left knee, initial encounter; S00.81XA Abrasion of other part of head, initial encounter; W06.XXXA Fall from bed, initial encounter; Y92.003 Bedroom of unspecified non-institutional (private) residence as the place of occurrence of the external cause; M50.30 Other cervical disc degeneration, unspecified cervical region; E11.40 Type 2 diabetes mellitus with diabetic neuropathy, unspecified; Z79.84 Long term (current) use of oral hypoglycemic drugs; I10 Essential (primary) hypertension
CPT/HCPCS: 70450; 72125; 99284; A9270

== ENCOUNTER 2020-08-06 14:35 | Outpatient (CLI) | payer MEDICARE, OTHER ==
[2020-08-06 19:57] LABS: CALCIUM 9.7 mg/dL (8.5-10.3); CREATININE 1.3 mg/dL (0.6-1.2)
[2020-08-06 19:59] LABS: CREATININE,URINE 180.6 mg/dL; MICROALBUM/CREATININE RATIO,UR 12.2 ug/mg (<30.0); MICROALBUMIN,URINE 2.2 mg/dL (0-300.0)
== END 2020-08-06 14:36 | disposition home or self-care (01) ==
LOC: LAB.S 14:35
PROVIDERS: ATTEND Physician Assistant
DX: E11.319 Type 2 diabetes mellitus with unspecified diabetic retinopathy without macular edema (principal)
CPT/HCPCS: 36415; 80048; 82043; 82570; 83036

== ENCOUNTER 2020-10-24 08:00 | Outpatient (CLI) | payer MEDICARE, OTHER ==
--- NOTE | 2020-10-24 16:06 | XRAY Report ---
PROCEDURE: Wrist 4 View LT INDICATIONS: LEFT WRIST PAIN TECHNIQUE: 4 views of the wrist were acquired. COMPARISON: None FINDINGS: Bones: No fractures or dislocations. No suspicious bony lesions. Mild first CMC degenerative narro wing. Scaphoid view: No visualized fracture. Soft tissues: No suspicious soft tissue calcifications. IMPRESSION: Mild first CMC degenerative narrowing suggestive of arthritis. Reviewed by: Kelli Choudhary MD on 10/24/2020 4:05 PM [facility] Approved by: Kelli Choudhary MD on 10/24/2020 4:05 PM [facility] Station ID: [id number]
== END 2020-10-24 23:59 | disposition home or self-care (01) ==
LOC: DI.N 08:00
PROVIDERS: ATTEND Orthopaedic Surgery
DX: M25.532 Pain in left wrist (principal); M19.032 Primary osteoarthritis, left wrist

== ENCOUNTER 2020-11-04 10:43 | Outpatient (CLI) | payer MEDICARE, OTHER ==
[2020-11-04 16:22] LABS: CALCIUM 9.2 mg/dL (8.5-10.3); CREATININE 1.1 mg/dL (0.6-1.2); POTASSIUM 3.9 mmol/L (3.5-5.0)
== END 2020-11-04 10:44 | disposition home or self-care (01) ==
LOC: LAB.S 10:43
PROVIDERS: ATTEND Physician Assistant
DX: E11.319 Type 2 diabetes mellitus with unspecified diabetic retinopathy without macular edema (principal); E55.9 Vitamin D deficiency, unspecified; E29.1 Testicular hypofunction; R53.83 Other fatigue; E78.00 Pure hypercholesterolemia, unspecified; I25.10 Atherosclerotic heart disease of native coronary artery without angina pectoris; G47.33 Obstructive sleep apnea (adult) (pediatric); R26.81 Unsteadiness on feet
CPT/HCPCS: 36415; 80048; 81599; 82306; 83021; 84402; 84403; 85014; 85018; 85041; 85651

== ENCOUNTER 2021-02-11 13:42 | Outpatient (CLI) | payer MEDICARE, OTHER ==
--- NOTE | 2021-02-11 14:25 | SLEEP CARE CONSULTATION ---
Information from patient questionnaire entered by Lianna Levy. I have reviewed and concur with the information entered by Lianna Levy. This document represents the service I personally performed and the decisions made by , Anu Preciado ARNP. History of Present Illness Service Date and Time: 02/11/2021 1342 Previous diagnosis: Moderate, Obstructive Sleep Apnea-Hypopnea Syndrome AHI: 15.0 (in 2017) Reason for follow up: annual (last seen 12/2018) Equipment type: CPAP Equipment obtained from: [facility] (getting supplies as needed) Mask style: Nasal (over the nose) Backup mask available: Yes (old mask) Prior sleep studies: Yes Year and Where: 2017 - [facility]; 1999 - additional information: FANI CH was diagnosed to have moderate, AHI 15.0, obstructive sleep apnea-hypopnea syndrome and returned today with spouse for CPAP therapy annual follow-up. CPAP Compliance Data - Data Reviewed with Patient Average duration of nightly device use: 6 hr 18 min Compliance rate %: 6.7 (180 days) Current pressure setting (cmH2O): 13-16 (median 13.9, avg 15.9, max 15.9) Humidity settin Heated hose settin Average residual AHI: 11 Average large leak: 10 min 11 sec Subjective Patient concerns: reports: aerophagia (feels bloated all day), mask discomfort (has to adjust it frequently), air blowing in eyes, mask leak noise, dry mouth, nose, throat, other (Snore while using device). denies: condensation in mask/hose, nasal congestion, epistaxis Observed to snore while using device: Yes Current pressure setting perceived as: comfortable On therapy, patient: reports: other (He does not feel any difference) Initial Parmele Sleepiness Scale score: 17 (in 2011) Current Par[place] Sleepiness Scale score: 20 Allergies and Home Medications Home medication list reviewed: Yes (testosterone gel) Review of Systems Review of systems same as previous: No (Liver cancer, Jun 2019, microwaved) Physical Exam Heart Rate: 75 O2 Saturation: 94 Height: 5 ft 7.5 in Weight: 192 lb Body Mass Index: 29.6 BMI Classification: Overweight Impression and Plan 1. Obstructive Sleep Apnea-Hypopnea Syndrome, moderate, with unknown treatment compliance and fair apnea control with elevated residual AHI. We need them to bring in his compliance information. His states he uses it every night and for his few hours nap in the afternoon every day. On CPAP therapy, the patient states he does not notice a difference. He has been using the CPAP for nightly as well as naps daily for several years. The patients pressure will be changed to autoCPAP 14-17 cmH20 for elevation of residual AHI. Patient advised to contact me if pressure change is uncomfortable so that it can be adjusted. Goals for apnea control discussed. Patient states he has to adjust the mask to reduce leaks and make it more comfortable. He would like to try a different mask. I will write for a mask refitting and advised to try a full face mask to see if he can find a better fit. He and his voiced understanding and agreement with plan of care. Patient's apnea severity and rationale for treatment to reduce apnea, improve sleep quality and reduce cardiovascular and cerebrovascular events was reviewed. I also reviewed the benefit of consistent device use of CPAP for hypertension, cardiac disease, and diabetes. * Change auto CPAP pressure to 14-17 cmH2O * Need compliance information * Notify me if snoring with mask or feeling that the pressure is too much or too little * Attempt to lose weight * Call this office if any problems using CPAP * Return for follow up in 1-2 months, or sooner if concerns arise Counseling Topics: Spare mask, Weight loss health impact Visit Type: In Office Time Spent with Patient (minutes): 26 Provider Statement: I spent 100% of the Face to Face Visit with the patient with greater than 50% spent counseling the patient and coordination of care.
== END 2021-02-11 13:43 | disposition home or self-care (01) ==
LOC: SC 13:42
PROVIDERS: ATTEND Nurse Practitioner Family
DX: G47.33 Obstructive sleep apnea (adult) (pediatric) (principal); E66.3 Overweight; Z68.29 Body mass index [BMI] 29.0-29.9, adult
CPT/HCPCS: 99213; G0463; 99212

== ENCOUNTER 2021-04-14 14:01 | Outpatient (CLI) | payer MEDICARE, OTHER ==
--- NOTE | 2021-04-14 16:27 | XRAY Report ---
PROCEDURE: Femur 2V LT INDICATIONS: CONTUSION OF LEFT THIGH TECHNIQUE: 2 views of the femur were acquired. COMPARISON: None. FINDINGS: Bones: No fractures or dislocations. No suspicious bony lesions. Moderate left hip arthritic narro wing. Soft tissues: No suspicious soft tissue calcifications or masses. IMPRESSION: No visualized acute fracture or dislocation. However, occult injury cannot be excluded. Recommend tiana rt interval imaging follow-up in 7-10 days as clinically indicated for additional evaluation. Reviewed by: Kelli Choudhary MD on 04/14/2021 4:25 PM PDT Approved by: Kelli Choudhary MD on 04/14/2021 4:25 PM PDT Station ID: [id number]
== END 2021-04-14 23:59 | disposition home or self-care (01) ==
LOC: DI.S 14:01
PROVIDERS: ATTEND Emergency Medicine
DX: S70.12XA Contusion of left thigh, initial encounter (principal)

== ENCOUNTER 2021-04-15 13:28 | Outpatient (CLI) | payer MEDICARE, OTHER ==
--- NOTE | 2021-04-15 14:12 | SLEEP CARE CONSULTATION ---
Information from patient questionnaire entered by Lianna Levy. I have reviewed and concur with the information entered by Lianna Levy. This document represents the service I personally performed and the decisions made by , Anu Preciado ARNP. History of Present Illness Service Date and Time: 04/15/2021 1328 Previous diagnosis: Moderate, Obstructive Sleep Apnea-Hypopnea Syndrome AHI: 15.0 (in 2017) Reason for follow up: other (6 week with pressure change) Accompanied by: Spouse Equipment type: CPAP Equipment obtained from: [facility] (getting supplies as needed) Mask style: Nasal Backup mask available: Yes (old mask) Last cushion change: unsure Prior sleep studies: Yes Year and Where: 2016 - [facility]; 1994(6) and 2001 - [place] in [facility] additional information: FANI CH was diagnosed to have moderate, AHI 15.0, obstructive sleep apnea-hypopnea syndrome and returned today with for CPAP therapy 6 week with pressure change follow-up. Subjective Patient concerns: reports: aerophagia (never goes down, he is always gassy), mask discomfort, air blowing in eyes, mask leak noise, dry mouth, nose, throat. denies: condensation in mask/hose, nasal congestion, epistaxis Observed to snore while using device: Yes (occasional but not sure how often) Current pressure setting perceived as: too low On therapy, patient: reports: sleeping better, awakening more refreshed, being more awake and alert during the day, more rested overall. denies: drowsiness while driving Initial Britt Sleepiness Scale score: 17 (in 2011) Current Britt Sleepiness Scale score: 22 Allergies and Home Medications Home medication list reviewed: Yes (no changes) Review of Systems Review of systems same as previous: No (fell out of bed 04-14-; L hip hematoma; right arm lacerations) Physical Exam Heart Rate: 79 O2 Saturation: 97 Height: 5 ft 7.5 in Weight: 194 lb Body Mass Index: 29.9 BMI Classification: Overweight Impression and Plan 1. Obstructive Sleep Apnea-Hypopnea Syndrome, moderate, with unknown treatment compliance and unknown apnea control. On CPAP therapy, the patient has better sleep quality and is more rested overall. Patient lost his memory card on the way to the office today. I need this information before I can do any adjustments to his pressure. He states a chronic bloating feeling in his stomach since he started using his CPAP machine. He thinks the pressure might be not strong enough because it is so light in his mask. He is set up to go in for a mask fitting to find a better fitting mask. Once he has his new mask the pressure may feel fine. Once I have seen the compliance download I will let him know if we need to do any adjustments to his pressure. Otherwise, if all is fine, we will follow-up with him in a year. Patient's apnea severity and rationale for treatment to reduce apnea, improve sleep quality and reduce cardiovascular and cerebrovascular events was reviewed. I also reviewed the benefit of consistent device use of CPAP for hypertension, cardiac disease, and diabetes. * Continue auto CPAP pressure at 14-17 cmH2O * Bring in compliance memory chip for download * Notify me if snoring with mask or feeling that the pressure is too much or too little * Attempt to lose weight * Call this office if any problems using CPAP * Return for follow up in 1 year, or sooner if concerns arise Counseling Topics: Spare mask, Weight loss health impact Visit Type: In Office Other Participants: Spouse/Significant Other Time Spent with Patient (minutes): 22 Provider Statement: I spent 100% of the Face to Face Visit with the patient with greater than 50% spent counseling the patient and coordination of care.
== END 2021-04-15 13:29 | disposition home or self-care (01) ==
LOC: SC 13:28
PROVIDERS: ATTEND Nurse Practitioner Family
DX: G47.33 Obstructive sleep apnea (adult) (pediatric) (principal)
CPT/HCPCS: 99213; G0463; 99212

== ENCOUNTER 2021-05-06 15:26 | Outpatient (CLI) | payer MEDICARE, OTHER ==
--- NOTE | 2021-05-06 16:23 | Ultrasound Report ---
PROCEDURE: Duplex Ext Veins Left INDICATIONS: CONTUSION LEFT THIGH TECHNIQUE: Real-time imaging, as well as color and pulse Doppler interrogation, were performed of the lower extr emity deep veins from the inguinal ligament to the popliteal fossa. COMPARISON: None. FINDINGS: The deep veins are normally compressible, and free of intraluminal thrombus. Color and pu lse Doppler demonstrate normal phasic intraluminal flow. There is normal augmentation response to di stal compression maneuver. Hematomas noted in the left lateral proximal thigh soft tissues. IMPRESSION: No evidence of deep vein thrombosis involving the left lower extremity. Reviewed by: Lia Villatoro MD, PhD on 05/06/2021 4:22 PM PDT Approved by: Lia Villatoro MD, PhD on 05/06/2021 4:22 PM PDT Station ID: [id number]
== END 2021-05-06 15:27 | disposition home or self-care (01) ==
LOC: DI 15:26
PROVIDERS: ATTEND Physician Assistant
DX: Z91.89 Other specified personal risk factors, not elsewhere classified (principal); S70.12XA Contusion of left thigh, initial encounter

== ENCOUNTER 2021-08-28 13:18 | Outpatient (CLI) | payer MEDICARE, OTHER ==
[2021-08-28 14:12] VITALS: BP 136/79
--- NOTE | 2021-08-28 14:12 | SLEEP CARE CONSULTATION ---
Information from patient questionnaire entered by Dimitry Perdomo MA. I have reviewed and concur with the information entered by Dimitry Perdomo MA. This document represents the service I personally performed and the decisions made by , Anu Preciado ARNP. History of Present Illness Service Date and Time: 08/28/2021 1318 Previous diagnosis: Moderate, Obstructive Sleep Apnea-Hypopnea Syndrome AHI: 15.0 (in 2017) Reason for follow up: other (4 MONTH F\U, SLEEPY ALL THE TIME) Equipment type: CPAP Equipment obtained from: Other ([facility]; getting supplies as needed) Mask style: Full face Mask brand: Respironics Backup mask available: Yes (old mask) Last cushion change: 4 months Prior sleep studies: Yes Year and Where: 2016 - [facility]; 1994() and 2001 - [place] in [facility] additional information: FANI CH was diagnosed to have moderate, AHI 15.0, obstructive sleep apnea-hypopnea syndrome and returned today with spouse for CPAP therapy 4 month follow-up. Sleep Study - Results Prior sleep studies: Yes Year and Where: 2016 - [facility]; 1994() and 2001 - [place] in [place], [place] CPAP Compliance Data - Data Reviewed with Patient Average duration of nightly device use: 6 HOURS 41 MINUTES Compliance rate %: 75 Current pressure setting (cmH2O): 13 - 16 Humidity settin Heated hose settin Average residual AHI: 9.1 Average large leak: 31 MINUTES 29 SECONDS Subjective Patient concerns: reports: air blowing in eyes, mask leak noise. denies: aerophagia, mask discomfort, condensation in mask/hose, nasal congestion, dry mouth, nose, throat, epistaxis, other (BLOATED) Observed to snore while using device: Yes Current pressure setting perceived as: comfortable On therapy, patient: reports: other (He does not feel a difference with CPAP use). denies: drowsiness while driving Initial [place] Sleepiness Scale score: 17 (in 2011) Current [place] Sleepiness Scale score: 23 (2020) Allergies and Home Medications Known drug allergies: No Drug allergies reviewed: Yes Home medication list reviewed: Yes (no changes) Review of Systems Review of systems same as previous: Yes (no changes) Physical Exam Vital signs obtained and entered by: Refugio PERDOMO CMA AADYLAN Blood Pressure: 136/79 (RIGHT) Cuff size: wrist Heart Rate: 69 O2 Saturation: 96 (CLOTH MASK) Height: 5 ft 7.5 in Weight: 193 lb (WITH SHOES AND CLOTHES) Body Mass Index: 29.7 BMI Classification: Overweight Impression and Plan 1. Obstructive Sleep Apnea-Hypopnea Syndrome, moderate, with good treatment compliance and fair apnea control with elevated residual AHI. On CPAP therapy, the patient has better sleep quality and is more rested overall. The patients pressure will be changed to autoCPAP 14-18 cmH20 for elevation of residual AHI. Patient advised to contact me if pressure change is uncomfortable so that it can be adjusted. Goals for apnea control discussed. Patient's apnea severity and rationale for treatment to reduce apnea, improve sleep quality and reduce cardiovascular and cerebrovascular events was reviewed. I also reviewed the benefit of consistent device use of CPAP for hypertension, cardiac disease and diabetes. Patient was encouraged to lose weight for their overall health and to reduce apneas. * Change auto CPAP pressure to 14-18 cmH2O * Notify me if snoring with mask or feeling that the pressure is too much or too little * Attempt to lose weight * Call this office if any problems using CPAP * Return for follow up in 1-2 months, or sooner if concerns arise Counseling Topics: Spare mask, Weight loss health impact Location of Provider: Office Time Spent with Patient (minutes): 22
== END 2021-08-28 13:19 | disposition home or self-care (01) ==
LOC: SC 13:18
PROVIDERS: ATTEND Nurse Practitioner Family
DX: G47.33 Obstructive sleep apnea (adult) (pediatric) (principal)
CPT/HCPCS: 99213; G0463; 99212

== ENCOUNTER 2021-10-16 13:57 | Outpatient (CLI) | payer MEDICARE, OTHER ==
--- NOTE | 2021-10-16 14:24 | SLEEP CARE CONSULTATION ---
Information from patient questionnaire entered by Dimitry Perdomo MA. I have reviewed and concur with the information entered by Dimitry Perdomo MA. This document represents the service I personally performed and the decisions made by , Anu Prceiado ARNP. History of Present Illness Service Date and Time: 10/16/2021 1357 Previous diagnosis: Moderate, Obstructive Sleep Apnea-Hypopnea Syndrome AHI: 15.0 (in 2017) Reason for follow up: other (2 MONTH F/U, PRESSURE CHANGE) Equipment type: CPAP Equipment obtained from: Other ([facility]; getting supplies as needed) Mask style: Nasal Mask brand: Respironics (Wisp) Backup mask available: Yes (old mask) Last cushion change: 10 days Prior sleep studies: Yes Year and Where: 2016 - [facility]; 1994() and 2001 - [place] in [facility] additional information: FANI CH was diagnosed to have moderate, AHI 15.0, obstructive sleep apnea-hypopnea syndrome and returns via video telehealth visit today with spouse for CPAP therapy two month with pressure change follow-up. Sleep Study - Results Prior sleep studies: Yes Year and Where: 2016 - [facility]; 1994() and 2001 - [place] in [place], [place] CPAP Compliance Data - Data Reviewed with Patient Average duration of nightly device use: 8 HOURS 24 MINUTES Compliance rate %: 100 Current pressure setting (cmH2O): 14-18 Humidity settin Heated hose settin Average residual AHI: 9.8 Central apnea: 1.3 Obstructive apnea: 3.5 Hypopnea: 5.0 Average large leak: 2 HOURS 31 MINUTES Subjective Missed days of use due to: reports: mask issues (better with change to nasal Wisp) Patient concerns: reports: mask leak noise (improved with mask change), dry mouth, nose, throat (occasional). denies: aerophagia, mask discomfort, air blowing in eyes, condensation in mask/hose, nasal congestion, epistaxis, other Observed to snore while using device: No Current pressure setting perceived as: comfortable On therapy, patient: reports: sleeping better, more rested overall. denies: drowsiness while driving Initial Mar[place] Sleepiness Scale score: 17 (in 2011) Current [place] Sleepiness Scale score: 20 Allergies and Home Medications Home medication list reviewed: Yes (no changes) Allergy and home medication list: Allergies No Known Drug Allergies Allergy (Verified 03/30/20 10:35) Review of Systems Review of systems same as previous: No (may have had a TIA) Physical Exam Vital signs obtained and entered by: Telehealth visit to reduce exposure during Covid pandemic Height: 5 ft 7.5 in Weight: 193 lb Body Mass Index: 29.7 BMI Classification: Overweight Impression and Plan 1. Obstructive Sleep Apnea-Hypopnea Syndrome, moderate, with excellent treatment compliance and fair apnea control with elevated residual AHI. On CPAP therapy, the patient has better sleep quality and is more rested overall. Patient has an elevated residual AHI with a large leak over 2 hours which may be contributing to the elevated number of hypopneas. He switched to a Dreamwear Wisp mask and the leaking noises has greatly reduced. His AHI did reduce since his last visit. He is satisfied with current pressure setting and does not want to change it right now. He is still having more daytime fatigue. I again discussed with him doing another titration study in the future but he does not want to do this now. His accompanied him to the appointment and she voiced that he may have had a TIA a few weeks ago. He is being monitored closely at home for this. Patient's apnea severity and rationale for treatment to reduce apnea, improve sleep quality and reduce cardiovascular and cerebrovascular events was reviewed. I also reviewed the benefit of consistent device use of CPAP for hypertension, cardiac disease and diabetes. Patient was encouraged to lose weight for their overall health and to reduce apneas. * Continue auto CPAP pressure at 14-18 cmH2O * Notify me if snoring with mask or feeling that the pressure is too much or too little * Attempt to lose weight * Call this office if any problems using CPAP * Return for follow up in 1 year, or sooner if concerns arise Counseling Topics: Spare mask, Weight loss health impact Visit Type: Telehealth Video Video Type: VSee Patient Location: Home Location of Provider: Office Patient agrees and consents to this telehealth visit type: Yes Patient agrees to have their insurance billed: Yes Time Spent with Patient (minutes): 22 Provider Statement: I spent 100% of the Telehealth Video Call with the patient with greater than 50% spent counseling the patient and coordination of care.
== END 2021-10-16 13:58 | disposition home or self-care (01) ==
LOC: SC 13:57
PROVIDERS: ATTEND Nurse Practitioner Family
DX: G47.33 Obstructive sleep apnea (adult) (pediatric) (principal); E66.3 Overweight; Z68.29 Body mass index [BMI] 29.0-29.9, adult

== ENCOUNTER 2021-10-17 18:09 | Outpatient (CLI) | payer MEDICARE, OTHER ==
[2021-10-17 21:11] LABS: BASOPHILS # (AUTO) 0.1 10^3/uL (0.0-0.1); BASOPHILS % (AUTO) 0.7 %; EOSINOPHILS # (AUTO) 0.3 10^3/uL (0.0-0.7); EOSINOPHILS % (AUTO) 4.4 %; HCT - HEMATOCRIT 39.3 % (42.0-52.0); HGB - HEMOGLOBIN 12.9 g/dL (14.0-18.0); LYMPHOCYTES # (AUTO) 2.1 10^3/uL (1.5-3.5); LYMPHOCYTES % (AUTO) 27.9 %; MEAN CORPUSCULAR HEMOGLOBIN 30.9 pg (27.0-31.0); MEAN CORPUSCULAR HGB CONC 32.8 g/dL (32.0-36.0); MEAN CORPUSCULAR VOLUME 94.2 fL (80.0-94.0); MEAN PLATELET VOLUME 11.7 fL (7.4-11.4); MONOCYTES # (AUTO) 0.7 10^3/uL (0.0-1.0); MONOCYTES % (AUTO) 9.3 %; NEUTROPHILS # (AUTO) 4.3 10^3/uL (1.5-6.6); NEUTROPHILS % (AUTO) 57.2 %; PLT - PLATELET COUNT 210 10^3/uL (130-450); RED BLOOD COUNT 4.17 10^6/uL (4.70-6.10); RED CELL DISTRIBUTION WIDTH 13.8 % (12.0-15.0); WHITE BLOOD COUNT 7.5 x10^3/uL (4.8-10.8)
[2021-10-17 21:13] LABS: ALBUMIN 3.9 g/dL (3.2-5.5); ALBUMIN/GLOBULIN RATIO 1.3 (1.0-2.2); BILIRUBIN,TOTAL 0.5 mg/dL (0.2-1.0); CALCIUM 8.9 mg/dL (8.5-10.3); CREATININE 1.2 mg/dL (0.6-1.2); POTASSIUM 3.8 mmol/L (3.5-5.0); TOTAL PROTEIN 6.8 g/dL (6.7-8.2)
[2021-10-17 21:30] LABS: INR 1.1 (0.8-1.2); PT - PROTHROMBIN TIME 12.5 secs (9.9-12.6)
== END 2021-10-17 18:10 | disposition home or self-care (01) ==
LOC: LAB.S 18:09
PROVIDERS: ATTEND Internal Medicine
DX: K22.711 Barrett's esophagus with high grade dysplasia (principal); K74.69 Other cirrhosis of liver; K76.9 Liver disease, unspecified
CPT/HCPCS: 36415; 80053; 81599; 82105; 85025; 85610

== ENCOUNTER 2022-05-04 09:35 | Outpatient (CLI) | payer MEDICARE, OTHER ==
[2022-05-04 14:51] LABS: BASOPHILS # (AUTO) 0.1 10^3/uL (0.0-0.1); BASOPHILS % (AUTO) 1.1 %; EOSINOPHILS # (AUTO) 0.3 10^3/uL (0.0-0.7); EOSINOPHILS % (AUTO) 4.8 %; HGB - HEMOGLOBIN 12.3 g/dL (14.0-18.0); LYMPHOCYTES # (AUTO) 1.8 10^3/uL (1.5-3.5); LYMPHOCYTES % (AUTO) 25.5 %; MEAN CORPUSCULAR HGB CONC 31.5 g/dL (32.0-36.0); MEAN CORPUSCULAR VOLUME 88.6 fL (80.0-94.0); MEAN PLATELET VOLUME 13.1 fL (7.4-11.4); MONOCYTES # (AUTO) 0.6 10^3/uL (0.0-1.0); MONOCYTES % (AUTO) 8.3 %; NEUTROPHILS # (AUTO) 4.2 10^3/uL (1.5-6.6); NEUTROPHILS % (AUTO) 59.7 %; PLT - PLATELET COUNT 199 10^3/uL (130-450)
[2022-05-04 15:25] LABS: ALBUMIN/GLOBULIN RATIO 1.2 (1.0-2.2); ALKALINE PHOSPHATASE 68 IU/L (42-121); ALT ALANINE AMINOTRANSFERASE 35 IU/L (10-60); AST ASPARTATE AMINOTRANSFERASE 25 IU/L (10-42); BILIRUBIN,TOTAL 0.5 mg/dL (0.2-1.0); BUN - BLOOD UREA NITROGEN 25 mg/dL (6-20); CALCIUM 9.6 mg/dL (8.5-10.3); CARBON DIOXIDE - CO2 31 mmol/L (21-32); CHLORIDE 102 mmol/L (101-111); CHOL/HDL RATIO 4.9 (<5.0); CHOLESTEROL 204 mg/dL; CREATININE 1.1 mg/dL (0.6-1.2); GFR - MDRD 64 (>89); GLUCOSE 157 mg/dL (70-100); HDL CHOLESTEROL 42 mg/dL; LDL CHOLESTEROL,CALCULATED 129 mg/dL; LDL/HDL RATIO 3.1 (<3.6); POTASSIUM 4.3 mmol/L (3.5-5.0); SODIUM 140 mmol/L (135-145); TOTAL PROTEIN 7.3 g/dL (6.7-8.2); TRIGLYCERIDES 164 mg/dL; VLDL CHOLESTEROL 33 mg/dL
[2022-05-04 15:28] LABS: THYROID STIMULATING HORMONE 2.32 uIU/mL (0.34-5.60)
== END 2022-05-04 09:36 | disposition home or self-care (01) ==
LOC: LAB.S 09:35
PROVIDERS: ATTEND Registered Nurse
DX: E29.1 Testicular hypofunction (principal); R53.83 Other fatigue; E11.319 Type 2 diabetes mellitus with unspecified diabetic retinopathy without macular edema; N40.0 Benign prostatic hyperplasia without lower urinary tract symptoms
CPT/HCPCS: 36415; 80053; 80061; 83721; 84153; 84403; 84443; 85025

== ENCOUNTER 2022-06-29 08:00 | Outpatient (CLI) | payer MEDICARE, OTHER ==
--- NOTE | 2022-06-29 16:49 | XRAY Report ---
PROCEDURE: Lumbar Spine 2 View INDICATIONS: LUMBAR RADICULOPATHY TECHNIQUE: 3 views of the lumbar spine were acquired. COMPARISON: None. FINDINGS: Bones: 5 [id number] vertebrae are present. There are multilevel degenerative changes with anter ior osteophytes predominantly in the thoracolumbar spine. The lower lumbar spine has facet arthrosis. There is normal bony alignment. There is anterior height loss of T12 the appearance of a remote comp ression fracture. No suspicious bony lesions. There is degenerative disc disease at L3-4 and L4-5. Soft tissues: Overlying bowel gas pattern is normal. No suspicious soft tissue calcifications. The aorta has atherosclerotic calcifications. IMPRESSION: 1. Multilevel degenerative changes with facet arthrosis. 2. Disc space narrowing at L3-4 and L4-5 consistent with disc disease. None 3. Remote compression fracture of T12. Reviewed by: Tanmay Paez on 06/29/2022 4:48 PM PDT Approved by: Tanmay Paez on 06/29/2022 4:48 PM PDT Station ID: [id number]
== END 2022-06-29 23:59 | disposition home or self-care (01) ==
LOC: DI.S 08:00
PROVIDERS: ATTEND Physician Assistant
DX: M47.25 Other spondylosis with radiculopathy, thoracolumbar region (principal); M47.26 Other spondylosis with radiculopathy, lumbar region; M51.16 Intervertebral disc disorders with radiculopathy, lumbar region; M48.54XD Collapsed vertebra, not elsewhere classified, thoracic region, subsequent encounter for fracture with routine healing; E11.319 Type 2 diabetes mellitus with unspecified diabetic retinopathy without macular edema
CPT/HCPCS: 36415; 80048; 82043; 82570; 83036

== ENCOUNTER 2022-06-29 13:07 | Outpatient (CLI) | payer MEDICARE, OTHER ==
[2022-06-29 14:57] LABS: CALCIUM 9.8 mg/dL (8.5-10.3); CREATININE 1.3 mg/dL (0.6-1.2); POTASSIUM 4.1 mmol/L (3.5-5.0)
[2022-06-29 21:14] LABS: ESTIMATED AVERAGE GLUCOSE 148 mg/dL (70-100); HEMOGLOBIN A1c% 6.8 % (4.27-6.07)
== END 2022-06-29 13:08 | disposition home or self-care (01) ==
LOC: LAB.S 13:07
PROVIDERS: ATTEND Registered Nurse
DX: E11.319 Type 2 diabetes mellitus with unspecified diabetic retinopathy without macular edema (principal)
CPT/HCPCS: 36415; 80048; 82043; 82570; 83036

== ENCOUNTER 2022-08-27 07:51 | Outpatient (CLI) | payer MEDICARE, OTHER ==
--- NOTE | 2022-08-27 10:23 | Ultrasound Report ---
PROCEDURE: Duplex Aorta Complete INDICATIONS: VASCULAR CALCIFICATION TECHNIQUE: Color and pulse Doppler interrogation was performed of the aorta and iliac arterial systems, with jessica FlameStower documentation. COMPARISON: Lumbar spine radiographs 06/29/2022, CT abdomen 05/13/2017 FINDINGS: Aorta: 54-62 cm/sec, with biphasic flow. Proximal aorta diameter 2.8 cm, mid aorta diameter 1.9 cm, distal aorta diameter 1.7 cm. Right lower extremity: Proximal common iliac artery: 52cm/sec, with biphasic flow. Distal common iliac artery: 140 cm/sec, with biphasic flow. Proximal external iliac artery: 169 cm/sec, with biphasic flow. Distal external iliac artery: 95 cm/sec, with biphasic flow. Common femoral artery: 171 cm/sec, with biphasic flow. Goodman-scale imaging description: Moderate plaque Left lower extremity: Proximal common iliac artery: 143 cm/sec, with biphasic flow. Distal common iliac artery: 139 cm/sec, with biphasic flow. Proximal external iliac artery: 206 cm/sec, with biphasic flow. Distal external iliac artery: 183 cm/sec, with biphasic flow. Common femoral artery: 176 cm/sec, with biphasic flow. Goodman-scale imaging description: Moderate plaque IMPRESSION: 1. No abdominal aortic aneurysm visualized. 2. Multifocal vascular calcifications/atherosclerosis. 3. Peak systolic velocities raising the possibility of hemodynamically significant stenosis right com mon iliac artery. Reviewed by: Robb Cheung MD on 08/27/2022 10:22 AM [facility] Approved by: Robb Cheung MD on 08/27/2022 10:22 AM PST Station ID: [id number]
== END 2022-08-27 07:52 | disposition home or self-care (01) ==
LOC: DI 07:51
PROVIDERS: ATTEND Physician Assistant
DX: I70.203 Unspecified atherosclerosis of native arteries of extremities, bilateral legs (principal)
CPT/HCPCS: 93978

== ENCOUNTER 2022-12-11 11:30 | Outpatient (CLI) | payer MEDICARE, OTHER ==
--- NOTE | 2022-12-11 12:10 | SLEEP CARE CONSULTATION ---
Information from patient questionnaire entered by Katherine Harding. I have reviewed and concur with the information entered by Katherine Harding. This document represents the service I personally performed and the decisions made by me, Anu Preciado ARNP. History of Present Illness Service Date and Time: 12/11/2022 1130 Previous diagnosis: Moderate, Obstructive Sleep Apnea-Hypopnea Syndrome AHI: 15.0 (in 2017) Reason for follow up: annual (LAST SEEN 10/2021) Accompanied by: Spouse Equipment type: CPAP (ELIZABETH Dreamstation 2) Equipment obtained from: Other ([facility]; getting supplies as needed) Mask style: Nasal (over the nose) Backup mask available: Yes (old mask, comes unsnapped) Last cushion change: 1 week Prior sleep studies: Yes Year and Where: 2016 - [facility]; 1994() and 2001 - [place] in [facility] additional information: FANI CH was diagnosed to have moderate, AHI 15.0, obstructive sleep apnea-hypopnea syndrome and returned today with spouse for CPAP therapy annual follow-up. Sleep Study - Results Prior sleep studies: Yes Year and Where: 2016 - [email or web address]; 1994() and 2001 - [place] in [place], [place] CPAP Compliance Data - Data Reviewed with Patient Average duration of nightly device use: 8 hours 8 minutes Compliance rate %: 98.9 (09/12/2022-12/10/2022; 89/90 days used) Current pressure setting (cmH2O): 14-18 (avg 17.2, max 18.0) Average residual AHI: 9.8 Central apnea: 2.3 Obstructive apnea: 5.1 Hypopnea: 2.4 Average large leak: 46 secs Subjective Patient concerns: reports: other (nose soreness, improves when he changes cushion). denies: aerophagia, mask discomfort, air blowing in eyes, mask leak noise, condensation in mask/hose, nasal congestion, dry mouth, nose, throat, epistaxis Observed to snore while using device: No Current pressure setting perceived as: comfortable On therapy, patient: reports: other (he does not notice a difference; uses it every night). denies: drowsiness while driving Initial [place] Sleepiness Scale score: 17 (in 2011) Current [place] Sleepiness Scale score: 21 (12/11/22) Allergies and Home Medications Known drug allergies: No Drug allergies reviewed: Yes Home medication list reviewed: Yes (no changes) Allergy and home medication list: Allergies No Known Drug Allergies Allergy (Verified 12/10/22 11:36) Review of Systems Review of systems same as previous: Yes (no changes) Physical Exam Vital signs obtained and entered by: KATHERINE Delaney MA Blood Pressure: 124/60 (LEFT ARM) Cuff size: regular Heart Rate: 71 O2 Saturation: 99 Height: 5 ft 7.5 in Weight: 196 lb 6.4 oz Body Mass Index: 30.3 BMI Classification: Obese Impression and Plan 1. Obstructive Sleep Apnea-Hypopnea Syndrome, moderate, with good treatment compliance and fair apnea control with elevated residual AHI. On CPAP therapy, the patient has better sleep quality and is more rested overall. Patient has elevated residual AHI. His obstructive index is at 5.1, central index 2.3 and hypopnea index at 2.4. He feels he could tolerate an increase in pressure. The patients pressure will be changed to autoCPAP 16-20 cmH20 for elevation of residual AHI. Patient advised to contact me if pressure change is uncomfortable so that it can be adjusted. Goals for apnea control discussed. He states he is getting sores on the bottom of his nose with current nasal cushion. He gets a lot less air leaks and likes the style otherwise. I showed him a Abdirashid DreamWisp mask which is similar with the hose at the top of head and he would like to try this mask. Patient's apnea severity and rationale for treatment to reduce apnea, improve sleep quality and reduce cardiovascular and cerebrovasc ular events was reviewed. I also reviewed the benefit of consistent device use of CPAP for hypertension, cardiac disease and diabetes. Patient asking about the Inspire implantable sleep apnea device. Patient informed that they would have to qualify for this type of therapy. A referral is needed for an ENT specialist who would evaluate if Inspire therapy is indeed right for them. Qualifications to be evaluated for Inspire therapy include a previous diagnosis of moderate to severe obstructive sleep apnea. They must also have tried, failed or have been unable to tolerate CPAP treatment. They should also have a BMI of 32 or less and do not have any other active implantable devices present (like a pacemaker). Patient will need to undergo a sleep endoscopy where they are put under light sedation and the airway is examined by an endoscope to determine the cause of their sleep apnea. If it is determined that Inspire therapy is right for them than they may proceed to implantation. He requested a referral to see if this would be beneficial for him. I will write for the referral as requested. 2. Obesity, unspecified. Currently patients BMI is 30.3. Obesity increases the risk of apnea, CPAP pressure requirements and overall health risks especially cardiovascular and diabetes. Thus patient is advised to lose weight. * Change auto CPAP pressure to 16-20 cmH2O * Mask fitting for a Abdirashid [email or web address] DreamWisp mask * Update supplies * Referral for Inspire Implant with Dr. Keane * Notify me if snoring with mask or feeling that the pressure is too much or too little * Attempt to lose weight * Call this office if any problems using CPAP * Return for follow up in 3 months, or sooner if concerns arise Counseling Topics: Spare mask, Weight loss health impact Follow up with Sleep Care in: 3 months Visit Type: In Office Other Participants: Spouse/Significant Other Time Spent with Patient (minutes): 29 Provider Statement: I spent 100% of the Face to Face Visit with the patient with greater than 50% spent counseling the patient and coordination of care.
[2022-12-11 12:11] VITALS: BP 124/60
== END 2022-12-11 11:31 | disposition home or self-care (01) ==
LOC: SC 11:30
PROVIDERS: ATTEND Nurse Practitioner Family
DX: G47.33 Obstructive sleep apnea (adult) (pediatric) (principal); E66.9 Obesity, unspecified; Z68.30 Body mass index [BMI] 30.0-30.9, adult
CPT/HCPCS: 99213; G0463; 99212

== ENCOUNTER 2022-12-18 07:00 | Outpatient (CLI) | payer MEDICARE, OTHER ==
--- NOTE | 2022-12-18 16:34 | XRAY Report ---
PROCEDURE: Chest 2 View X-Ray INDICATIONS: DRY COUGH TECHNIQUE: 2 views of the chest were acquired. COMPARISON: 06/14/2011. FINDINGS: Surgical changes and devices: Median sternotomy wires and surgical clips are seen.. Lungs and pleura: No pleural effusions or pneumothorax. Lungs are clear. Mediastinum: Mediastinal contours appear normal. Heart size is normal. Bones and chest wall: No suspicious bony lesions. Overlying soft tissues appear unremarkable. IMPRESSION: No acute cardiopulmonary pathology. Reviewed by: Fabio Baker MD on 12/18/2022 4:33 PM PDT Approved by: Fabio Baker MD on 12/18/2022 4:33 PM PDT Station ID: [id number]
== END 2022-12-18 23:59 | disposition home or self-care (01) ==
LOC: DI.S 07:00
PROVIDERS: ATTEND Internal Medicine
DX: R05.9 Cough, unspecified (principal)

== ENCOUNTER 2023-03-04 08:00 | Outpatient (CLI) | payer MEDICARE, OTHER ==
--- NOTE | 2023-03-04 10:47 | XRAY Report ---
PROCEDURE: Chest 2 View X-Ray INDICATIONS: DRY COUGH TECHNIQUE: 2 views of the chest were acquired. COMPARISON: Chest x-ray, 12/18/2022. FINDINGS: Surgical changes and devices: Sternotomy. Lungs and pleura: No pleural effusions or pneumothorax. Lungs are clear. Mediastinum: Mediastinal contours appear normal. Heart size is normal. Bones and chest wall: No suspicious bony lesions. Overlying soft tissues appear unremarkable. IMPRESSION: No acute cardiopulmonary process. Reviewed by: Smiley Jacobo MD on 03/04/2023 10:45 AM PDT Approved by: Smiley Jacobo MD on 03/04/2023 10:45 AM PDT Station ID: [id number]
== END 2023-03-04 23:59 | disposition home or self-care (01) ==
LOC: DI.S 08:00
PROVIDERS: ATTEND Physician Assistant
DX: R05.9 Cough, unspecified (principal)

== ENCOUNTER 2023-03-05 18:33 | Outpatient (CLI) | payer MEDICARE, OTHER | END 2023-03-05 23:59 | disposition critical access hospital (66) | LOC: EMS 18:33 | DX: R20.0 Anesthesia of skin (principal); R07.9 Chest pain, unspecified | CPT/HCPCS: A0425; A0429 ==

== ENCOUNTER 2023-03-05 18:59 | Emergency (ER) | payer MEDICARE, OTHER ==
--- NOTE | 2023-03-05 19:15 | ED Physician Documentation ---
History of Present Illness - Stated complaint Stated Complaint: CHEST PX - Chief complaint Chief Complaint: Cardiac - Additonal information Additional information: 82-year-old male presents emergency department for evaluation of chest pain. He does have a history that includes CABG x2 the first 1 in 1989 and then again in 2008. The patient states that he has not had chest pain for more than 10 years and this morning he woke up with substernal sharp chest pain. He took 2 old nitroglycerin tablets which resolved the pain. However this afternoon about 6 PM he again developed chest pain and subsequently took another nitroglycerin and summoned 911. The patient reports to me that he was seen by an [facility] provider 2 days ago and was told that he had a murmur. He is unclear what the plan is regarding the work-up of that. At this time he denies chest pain. PD PAST MEDICAL HISTORY - Past Medical History Cardiovascular: Congestive heart failure, Hypertension, Coronary artery disease, Other Respiratory: Sleep apnea, CPAP use Endocrine/Autoimmune: Type 2 diabetes GI: GERD, Esophageal varices, Cirrhosis, Other : Nocturia, Frequency, Other HEENT: Chronic vision loss, Chronic hearing loss Psych: Depression Musculoskeletal: Osteoarthritis, Chronic back pain Derm: Other - Past Surgical History Past Surgical History: Yes General: Cholecystectomy, Hiatal hernia repair, Other Ortho: Rotator cuff repair, Carpal Tunnel surgery, Other Cardiovascular: CABG - Present Medications Home Medications: Ambulatory Orders Medication Instructions Recorded Confirmed Acetaminophen with Codeine 12.5 ml PO 03/05/23 03/05/23 [Acetaminophen-Codeine Solution] Albuterol Sulfate [Proair 2 puffs IH Q6HR PRN 03/05/23 03/05/23 Respiclick] Ascorbic Acid [Vitamin C] 250 mg PO DAILY 03/05/23 03/05/23 Cyanocobalamin (Vitamin B-12) 1,000 mcg PO DAILY 03/05/23 03/05/23 [Vitamin B-12] Diclofenac Sodium 1% Gel [Voltaren 50 gm TOP DAILY 03/05/23 03/05/23 Gel] Finasteride [Proscar] 5 mg PO DAILY 03/05/23 03/05/23 Fluticasone [Flonase] 2 sprays CHAPIS DAILY 03/05/23 03/05/23 Gabapentin [Neurontin] 300 mg PO HS 03/05/23 03/05/23 Ketoconazole 2% Cream [Nizoral 2% 1 applic TOP DAILY 03/05/23 03/05/23 Cream] Loratadine [Claritin] 10 mg PO DAILY 03/05/23 03/05/23 Losartan Potassium 25 mg PO DAILY 03/05/23 03/05/23 Nitroglycerin [Nitrostat] 0.4 mg SL [id number] 03/05/23 03/05/23 Omeprazole 40 mg PO DAILY 03/05/23 03/05/23 Tamsulosin HCl [Flomax] 0.4 mg PO QPM 03/05/23 03/05/23 Venlafaxine HCl [Effexor Xr] 150 mg PO DAILY 03/05/23 03/05/23 buPROPion HCL [Wellbutrin Xl] 300 mg PO DAILY 03/05/23 03/05/23 carvediloL [Coreg] 3.125 mg PO QPM 03/05/23 03/05/23 metFORMIN [Glucophage] 500 mg PO DAILY 03/05/23 03/05/23 predniSONE [Deltasone] 20 mg PO BID 03/05/23 03/05/23 - Allergies Allergies/Adverse Reactions: Allergies Allergy/AdvReac Type Severity Reaction Status Date / Time No Known Drug Allergies Allergy Verified 12/10/22 11:36 - Social History Does the pt smoke?: No Smoking Status: Never smoker Does the pt drink ETOH?: No Does the pt have substance abuse?: No - Immunizations Immunizations are current?: Yes - POLST Patient has POLST: No Results - Vitals Vitals: Vital Signs - 24 hr 03/05/23 03/05/23 19:06 19:11 Temperature 36.6 C Heart Rate 78 75 Respiratory 16 16 Rate Blood Pressure 174/66 H 154/59 H O2 Saturation 100 98 Oxygen O2 Source Room air - EKG (time done) 1911 EKG releavant findings:: EKG personally interpreted by author of this note. Relevant findings are: Rate: Rate (enter#) (76) Rhythm: NSR [place]: LAD Intervals: Prolonged MT. No: Prolonged QT Ischemia: Non specific changes Compare to prior EKG: Old EKG unavailable Computer interpretation: Agree with computer - Labs Labs: Laboratory Tests 03/05/23 03/05/23 03/05/23 19:17 19:17 19:17 WBC 11.8 H RBC 3.80 L Hgb 11.6 L Hct 35.2 L MCV 92.6 MCH 30.5 MCHC 33.0 RDW 13.3 Plt Count 228 MPV 9.8 Neut # (Auto) 10.1 H Lymph # (Auto) 1.1 L [place] # (Auto) 0.5 Eos # (Auto) 0.0 Baso # (Auto) 0.0 Absolute Nucleated RBC 0.00 Nucleated RBC % 0.0 Sodium 137 Potassium 4.3 Chloride 103 Carbon Dioxide 26 Anion Gap 8.0 BUN 26 H Creatinine 1.1 Estimated GFR (MDRD) 64 L Glucose 270 H Calcium 8.8 Total Bilirubin 0.4 AST 31 ALT 36 Alkaline Phosphatase 82 Troponin I High Sens 45.9 H* Total Protein 6.8 Albumin 3.4 Globulin 3.4 Albumin/Globulin Ratio 1.0 Lipase 29 // 20:10 WBC RBC Hgb Hct MCV MCH MCHC RDW Plt Count MPV Neut # (Auto) Lymph # (Auto) [place] # (Auto) Eos # (Auto) Baso # (Auto) Absolute Nucleated RBC Nucleated RBC % Sodium Potassium Chloride Carbon Dioxide Anion Gap BUN Creatinine Estimated GFR (MDRD) Glucose Calcium Total Bilirubin AST ALT Alkaline Phosphatase Troponin I High Sens 44.8 H* Total Protein Albumin Globulin Albumin/Globulin Ratio Lipase PD Medical Decision Making - ED course Complexity details: reviewed old records, reviewed results, re-evaluated patient, considered differential, d/w patient ED course: 82-year-old male who has a history of hypertension, diabetes and previous coronary artery disease status post CABG x2 last in 2008 presents emergency department for evaluation of chest pain. 1 episode this morning that resolved after taking 2 doses of nitroglycerin and then again this evening at 6 PM that resolved after taking a single dose of nitroglycerin. The patient is not currently acquainted with a lcsw. Due to a history of Rosado's esophagitis he does not take aspirin. He is also not on a beta- wyatt. His EKG shows a sinus rhythm with a prolonged MT interval but appears nonischemic. His chest x-ray showed no findings to suggest pneumonia, pneumothorax or pleural effusion. Subsequently CBC, electrolytes and troponin were obtained. As interpreted by myself no acute worrisome findings with the exception of an elevated troponin 45. on repeat it remained flat a5 45. However the history is suggestive of unstable angina/ACS/NSTEMI. Patient has been administered 325 mg of aspirin, he was given a single dose of metoprolol 25 mg orally as well as a loading dose of atorvastatin 80 mg. As he is free of chest pain and does not have markedly rising tropes anticoagulation was held at this time We are without cardiology services at [facility] and will reach out to outlying hospitals for cardiology consult and possibly transfer 2106: I spoke on the phone with [facility] lcsw Dr. Nichols. We discussed the case. He feels the patient would best be served by transferring to the ER. I subsequently spoke on the phone with Dr. Quinonez the ED attending who agrees to accept the patient in transport via ALS. Patient and his were informed of plans to transfer and are in agreement. Appropriate SchedulizeRA paperwork completed. Departure - Departure Disposition: 02 Transfer Acute Care Hosp Clinical Impression: Unstable angina Condition: Serious Record reviewed to determine appropriate education?: Yes
[2023-03-05 19:23] LABS: BASOPHILS % (AUTO) 0.2 %; HCT - HEMATOCRIT 35.2 % (42.0-52.0); HGB - HEMOGLOBIN 11.6 g/dL (14.0-18.0); LYMPHOCYTES # (AUTO) 1.1 10^3/uL (1.5-3.5); LYMPHOCYTES % (AUTO) 9.3 %; MEAN CORPUSCULAR HEMOGLOBIN 30.5 pg (27.0-31.0); MEAN CORPUSCULAR VOLUME 92.6 fL (80.0-94.0); MEAN PLATELET VOLUME 9.8 fL (7.4-11.4); MONOCYTES # (AUTO) 0.5 10^3/uL (0.0-1.0); MONOCYTES % (AUTO) 3.9 %; NEUTROPHILS # (AUTO) 10.1 10^3/uL (1.5-6.6); NEUTROPHILS % (AUTO) 85.8 %; PLT - PLATELET COUNT 228 10^3/uL (130-450); RED CELL DISTRIBUTION WIDTH 13.3 % (12.0-15.0); WHITE BLOOD COUNT 11.8 x10^3/uL (4.8-10.8)
[2023-03-05 19:34] LABS: ALBUMIN 3.4 g/dL (3.2-5.5); BILIRUBIN,TOTAL 0.4 mg/dL (0.2-1.0); CALCIUM 8.8 mg/dL (8.5-10.3); CREATININE 1.1 mg/dL (0.6-1.2); POTASSIUM 4.3 mmol/L (3.5-5.0); TOTAL PROTEIN 6.8 g/dL (6.7-8.2)
[2023-03-05] MEDS ORDERED: ASPIRIN CHEW 81 MG TABLET PO STA (19:49)
[2023-03-05] MEDS ORDERED: METOPROLOL TARTRATE 50 MG TABLET PO STA (19:52)
[2023-03-05] MEDS ORDERED: ATORVASTATIN 40 MG TABLET PO STA (19:52)
--- NOTE | 2023-03-05 19:56 | XRAY Report ---
PROCEDURE: Chest 1 View X-Ray INDICATIONS: Chest Pain TECHNIQUE: One view of the chest was acquired. COMPARISON: CXR 03/04/2023. FINDINGS: Surgical changes and devices: Post median sternotomy. Multiple clips in the left upper abdomen.. Lungs and pleura: No pleural effusions or pneumothorax. Lungs are clear. Mediastinum: Mediastinal contours appear normal. Heart size is normal. Bones and chest wall: No suspicious bony lesions. Overlying soft tissues appear unremarkable. IMPRESSION: No acute cardiopulmonary process. Reviewed by: Fermin Cyr MD on 03/05/2023 7:55 PM PDT Approved by: Fermin Cyr MD on 03/05/2023 7:55 PM PDT Station ID: [id number]
[2023-03-05 21:57] VITALS: BP 171/76
== END 2023-03-05 22:20 | disposition short-term general hospital (02) ==
LOC: EDUNIT# → ED 18:59
DX: I20.0 Unstable angina (principal); I10 Essential (primary) hypertension; K22.70 Barrett's esophagus without dysplasia; I25.810 Atherosclerosis of coronary artery bypass graft(s) without angina pectoris; E11.9 Type 2 diabetes mellitus without complications; Z79.84 Long term (current) use of oral hypoglycemic drugs
CPT/HCPCS: 36415; 71045; 80053; 83690; 84484; 85025; 93005; 99285; A9270

== ENCOUNTER 2023-03-05 21:53 | Outpatient (CLI) | payer MEDICARE, OTHER | END 2023-03-05 23:59 | disposition short-term general hospital (02) | LOC: EMS 21:53 | PROVIDERS: ATTEND Registered Nurse | DX: I21.4 Non-ST elevation (NSTEMI) myocardial infarction (principal) | CPT/HCPCS: A0425; A0429 ==

== ENCOUNTER 2023-03-22 12:47 | Outpatient (CLI) | payer MEDICARE, OTHER ==
[2023-03-22 20:17] LABS: INR 1.2 (0.8-1.2); PT - PROTHROMBIN TIME 12.8 secs (9.9-12.6)
[2023-03-22 20:18] LABS: BASOPHILS # (AUTO) 0.1 10^3/uL (0.0-0.1); BASOPHILS % (AUTO) 1.3 %; EOSINOPHILS # (AUTO) 0.5 10^3/uL (0.0-0.7); EOSINOPHILS % (AUTO) 6.6 %; HCT - HEMATOCRIT 37.1 % (42.0-52.0); HGB - HEMOGLOBIN 12.4 g/dL (14.0-18.0); LYMPHOCYTES # (AUTO) 1.9 10^3/uL (1.5-3.5); LYMPHOCYTES % (AUTO) 23.6 %; MEAN CORPUSCULAR HEMOGLOBIN 31.3 pg (27.0-31.0); MEAN CORPUSCULAR HGB CONC 33.4 g/dL (32.0-36.0); MEAN CORPUSCULAR VOLUME 93.7 fL (80.0-94.0); MEAN PLATELET VOLUME 12.1 fL (7.4-11.4); MONOCYTES # (AUTO) 0.6 10^3/uL (0.0-1.0); NEUTROPHILS # (AUTO) 4.7 10^3/uL (1.5-6.6); NEUTROPHILS % (AUTO) 60.2 %; PLT - PLATELET COUNT 200 10^3/uL (130-450); RED BLOOD COUNT 3.96 10^6/uL (4.70-6.10); RED CELL DISTRIBUTION WIDTH 14.2 % (12.0-15.0); WHITE BLOOD COUNT 7.9 x10^3/uL (4.8-10.8)
[2023-03-22 20:39] LABS: ESTIMATED AVERAGE GLUCOSE 154 mg/dL (70-100)
[2023-03-22 20:59] LABS: CREATININE,URINE 99.1 mg/dL; MICROALBUMIN,URINE 0.4 mg/dL (0-300.0)
[2023-03-22 21:01] LABS: ALBUMIN/GLOBULIN RATIO 1.2 (1.0-2.2); ALKALINE PHOSPHATASE 80 IU/L (42-121); ALT ALANINE AMINOTRANSFERASE 34 IU/L (10-60); AST ASPARTATE AMINOTRANSFERASE 30 IU/L (10-42); BILIRUBIN,TOTAL 0.8 mg/dL (0.2-1.0); BUN - BLOOD UREA NITROGEN 36 mg/dL (6-20); CALCIUM 9.3 mg/dL (8.5-10.3); CARBON DIOXIDE - CO2 30 mmol/L (21-32); CHLORIDE 106 mmol/L (101-111); CHOL/HDL RATIO 3.1 (<5.0); CHOLESTEROL 127 mg/dL; CREATININE 1.3 mg/dL (0.6-1.2); GFR - MDRD 53 (>89); GLUCOSE 137 mg/dL (70-100); HDL CHOLESTEROL 41 mg/dL; LDL CHOLESTEROL,CALCULATED 61 mg/dL; LDL/HDL RATIO 1.5 (<3.6); POTASSIUM 4.5 mmol/L (3.5-5.0); SODIUM 141 mmol/L (135-145); TOTAL PROTEIN 7.3 g/dL (6.7-8.2); TRIGLYCERIDES 125 mg/dL; VLDL CHOLESTEROL 25 mg/dL
[2023-03-22 21:06] LABS: THYROID STIMULATING HORMONE 2.8 uIU/mL (0.34-5.60)
[2023-03-22 21:14] LABS: FERRITIN 73.3 ng/mL (23.9-336.2)
[2023-03-22 21:17] LABS: FOLATE 22.94 ng/mL (5.90 - >24.8)
== END 2023-03-22 12:48 | disposition home or self-care (01) ==
LOC: LAB.S 12:47
PROVIDERS: ATTEND Registered Nurse
DX: E11.319 Type 2 diabetes mellitus with unspecified diabetic retinopathy without macular edema (principal); D64.9 Anemia, unspecified; Z13.220 Encounter for screening for lipoid disorders; Z13.228 Encounter for screening for other metabolic disorders; Z13.29 Encounter for screening for other suspected endocrine disorder; Z13.0 Encounter for screening for diseases of the blood and blood-forming organs and certain disorders involving the immune mechanism; I25.110 Atherosclerotic heart disease of native coronary artery with unstable angina pectoris
CPT/HCPCS: 36415; 80053; 80061; 82043; 82570; 82607; 82728; 82746; 83036; 83721; 84443; 85025; 85610

== ENCOUNTER 2023-04-13 13:53 | Outpatient (CLI) | payer MEDICARE, OTHER ==
--- NOTE | 2023-04-13 11:56 | SLEEP CARE CONSULTATION ---
Information from patient questionnaire entered by Katherine Harding. I have reviewed and concur with the information entered by Katherine Harding. This document represents the service I personally performed and the decisions made by me, Anu Preciado ARNP. History of Present Illness Service Date and Time: 04/13/2023 112 Previous diagnosis: Moderate, Obstructive Sleep Apnea-Hypopnea Syndrome AHI: 15.0 (in 2017) Reason for follow up: three month (F/U) Accompanied by: Spouse (Carlee) Equipment type: CPAP (ELIZABETH Dreamstation 2) Equipment obtained from: Other ([facility]; getting supplies as needed) Mask style: Nasal (over the nose) Mask brand: Respironics (Wisp) Backup mask available: Yes (old mask) Last cushion change: yesterday Prior sleep studies: Yes Year and Where: 2016 - [facility]; 1994() and 2001 - [facility] in [place], [place] HPI additional information: FAROOQ CH was diagnosed to have moderate, AHI 15, obstructive sleep apnea- hypopnea syndrome and returns via telehealth visit today for CPAP therapy three month follow-up. Sleep Study - Results Prior sleep studies: Yes Year and Where: 2016 - [facility]; 1994() and 2001 - [facility] in [place], [place] CPAP Compliance Data - Data Reviewed with Patient Average duration of nightly device use: 7 HRS 42 MIN 27SEC Compliance rate %: 90 (01/09/23-04/08/23; 89/90 days used) Current pressure setting (cmH2O): 16-20 (avg 18.6, max 19.5) Average residual AHI: 9.5 (RERA 0.3) Central apnea: 1.0 Obstructive apnea: 2.8 Hypopnea: 5.1 Subjective Missed days of use due to: reports: illness (in hospital) Patient concerns: reports: mask leak noise, nasal congestion. denies: aerophagia, mask discomfort, air blowing in eyes, condensation in mask/hose, dry mouth, nose, throat, epistaxis Observed to snore while using device: No Current pressure setting perceived as: comfortable On therapy, patient: reports: other (He uses CPAP for all sleep; he just had a heart attack) Initial [place] Sleepiness Scale score: 17 (in 2011) Current [place] Sleepiness Scale score: 20 Allergies and Home Medications Known drug allergies: No Drug allergies reviewed: Yes Home medication list reviewed: Yes (see updated list in EMR) Allergy and home medication list: Allergies No Known Drug Allergies Allergy (Verified 04/12/23 10:46) Review of Systems Review of systems same as previous: No (heart attack 3 wks ago; had 5 stents placed) Physical Exam Vital signs obtained and entered by: Katherine Delaney MA Blood Pressure: 135/65 (per pt) Height: 5 ft 7.5 in Weight: 184 lb (per patient) Body Mass Index: 28.3 BMI Classification: Overweight Impression and Plan 1. Obstructive Sleep Apnea-Hypopnea Syndrome, moderate, with good treatment compliance and fair apnea control with elevated residual AHI. His AHI appears to be elevated with mostly hypopneas and he averages large leaks on his CPAP. Farooq also had a heart attack about 3 weeks ago. He is home now and very tired. He uses his CPAP for all sleep but states he does not know of difference in sleep or restfulness without his CPAP. I think the pressure is optimal for him and will not adjust his CPAP today. He will follow up next year. Patient's apnea severity and rationale for treatment to reduce apnea, improve sleep quality and reduce cardiovascular and cerebrovascular events was reviewed. I also reviewed the benefit of consistent device use of CPAP for hypertension, cardiac disease, and diabetes. 2. Overweight, unspecified. Currently patients BMI is 28.3. Obesity increases the risk of apnea, CPAP pressure requirements and overall health risks especially cardiovascular and diabetes. Thus patient is advised to lose weight. * Continue auto CPAP pressure at 16-20 cmH2O * Notify me if snoring with mask or feeling that the pressure is too much or too little * Attempt to lose weight * Call this office if any problems using CPAP * Return for follow up in 1 year, or sooner if concerns arise Counseling Topics: Spare mask, Weight loss health impact Visit Type: Telehealth Phone Video Type: Other (office phone) Patient Location: Home Other Participants: Spouse/Significant Other Location of Provider: Office Patient agrees and consents to this telehealth visit type: Yes Patient agrees to have their insurance billed: Yes Time Spent with Patient (minutes): 25 Provider Statement: I spent 100% of the Telehealth Phone Call with the patient with greater than 50% spent counseling the patient and coordination of care.
[2023-04-13 12:03] VITALS: BP 135/65
== END 2023-04-13 13:54 | disposition home or self-care (01) ==
LOC: SC 13:53
PROVIDERS: ATTEND Nurse Practitioner Family
DX: G47.33 Obstructive sleep apnea (adult) (pediatric) (principal); E66.3 Overweight; Z68.28 Body mass index [BMI] 28.0-28.9, adult

== ENCOUNTER 2023-04-27 14:47 | Outpatient (CLI) | payer MEDICARE, OTHER | END 2023-04-27 23:59 | disposition critical access hospital (66) | LOC: EMS 14:47 | DX: R42 Dizziness and giddiness (principal) | CPT/HCPCS: A0425; A0429 ==

== ENCOUNTER 2023-04-27 15:14 | Observation (INO) | payer MEDICARE, OTHER ==
[2023-04-27] MEDS ORDERED: SODIUM CHLORIDE 0.9% 1,000 ML IV STA (15:23)
--- NOTE | 2023-04-27 15:23 | ED Physician Documentation ---
History of Present Illness - Stated complaint Stated Complaint: DIZZY/GLF - Chief complaint Chief Complaint: General - History obtained from History obtained from: Patient, EMS - Additonal information Additional information: 82-year-old gentleman with history of chronic dizziness and somewhat frequent falls for which he uses a walker. Last fall was couple months ago. His blood pressure has been high over the last couple of weeks and today over the phone his losartan was doubled. He was in the bathroom and fell as soon as he let go of his walker. He does not feel injured. He really has no complaints. They did note his blood pressure on scene was in the range of 100/50. He has a history of a couple of CABGs, sleep apnea, CPAP, type 2 diabetes, cirrhosis PD PAST MEDICAL HISTORY - Past Medical History Cardiovascular: Congestive heart failure, Hypertension, Coronary artery disease, Other Respiratory: Sleep apnea, CPAP use Endocrine/Autoimmune: Type 2 diabetes GI: GERD, Esophageal varices, Cirrhosis, Other : Nocturia, Frequency, Other HEENT: Chronic vision loss, Chronic hearing loss Psych: Depression Musculoskeletal: Osteoarthritis, Chronic back pain Derm: Other - Past Surgical History Past Surgical History: Yes General: Cholecystectomy, Hiatal hernia repair, Other Ortho: Rotator cuff repair, Carpal Tunnel surgery, Other Cardiovascular: CABG - Present Medications Home Medications: Ambulatory Orders Medication Instructions Recorded Confirmed Acetaminophen with Codeine 12.5 ml PO 03/05/23 03/05/23 [Acetaminophen-Codeine Solution] Albuterol Sulfate [Proair 2 puffs IH Q6HR PRN 03/05/23 03/05/23 Respiclick] Ascorbic Acid [Vitamin C] 250 mg PO DAILY 03/05/23 03/05/23 Cyanocobalamin (Vitamin B-12) 1,000 mcg PO DAILY 03/05/23 03/05/23 [Vitamin B-12] Diclofenac Sodium 1% Gel [Voltaren 50 gm TOP DAILY 03/05/23 03/05/23 Gel] Finasteride [Proscar] 5 mg PO DAILY 03/05/23 03/05/23 Fluticasone [Flonase] 2 sprays CHAPIS DAILY 03/05/23 03/05/23 Gabapentin [Neurontin] 300 mg PO HS 03/05/23 03/05/23 Ketoconazole 2% Cream [Nizoral 2% 1 applic TOP DAILY 03/05/23 03/05/23 Cream] Loratadine [Claritin] 10 mg PO DAILY 03/05/23 03/05/23 Losartan Potassium 25 mg PO DAILY 03/05/23 03/05/23 Nitroglycerin [Nitrostat] 0.4 mg SL [id number] 03/05/23 03/05/23 Omeprazole 40 mg PO DAILY 03/05/23 03/05/23 Tamsulosin HCl [Flomax] 0.4 mg PO QPM 03/05/23 03/05/23 Venlafaxine HCl [Effexor Xr] 150 mg PO DAILY 03/05/23 03/05/23 buPROPion HCL [Wellbutrin Xl] 300 mg PO DAILY 03/05/23 03/05/23 carvediloL [Coreg] 3.125 mg PO QPM 03/05/23 03/05/23 metFORMIN [Glucophage] 500 mg PO DAILY 03/05/23 03/05/23 predniSONE [Deltasone] 20 mg PO BID 03/05/23 03/05/23 Aspirin [[place]] See Rx Instructions .ROUTE .COMPLEX 04/13/23 04/13/23 amLODIPine [Norvasc] See Rx Instructions .ROUTE .COMPLEX 04/13/23 04/13/23 - Allergies Allergies/Adverse Reactions: Allergies Allergy/AdvReac Type Severity Reaction Status Date / Time No Known Drug Allergies Allergy Verified 04/27/23 15:19 - Social History Does the pt smoke?: No Smoking Status: Never smoker Does the pt drink ETOH?: No Does the pt have substance abuse?: No - Immunizations Immunizations are current?: Yes - POLST Patient has POLST: No PD ED PE NORMAL - Vitals Vital signs reviewed: Yes - General General: Alert and oriented X 3, No acute distress, Other (Hard of hearing) - HEENT HEENT: PERRL, Pharynx benign - Neck Neck: Supple, no meningeal sign, No bony TTP - Cardiac Cardiac: RRR, No murmur - Respiratory Respiratory: No respiratory distress, Clear bilaterally - Abdomen Abdomen: Non tender - Derm Derm: Normal color, Warm and dry - Extremities Extremities: No edema, No calf tenderness / cord - Neuro Neuro: Alert and oriented X 3, No motor deficit, No sensory deficit, Normal speech Eye Opening: Spontaneous Motor: Obeys Commands Verbal: Oriented GCS Score: 15 Results - Vitals Vitals: Vital Signs - 24 hr 04/27/23 04/27/23 15:19 15:21 Temperature 36.8 C 36.7 C Heart Rate 69 62 Respiratory 16 14 Rate Blood Pressure 124/56 L 127/47 L O2 Saturation 98 94 Oxygen O2 Source Room air - Labs Labs: Laboratory Tests 04/27/23 04/27/23 15:34 15:34 WBC 6.8 RBC 3.71 L Hgb 11.6 L Hct 35.8 L MCV 96.5 H MCH 31.3 H MCHC 32.4 RDW 14.1 Plt Count 189 MPV 10.4 Neut # (Auto) 4.6 Lymph # (Auto) 1.3 L [place] # (Auto) 0.5 Eos # (Auto) 0.4 Baso # (Auto) 0.1 Absolute Nucleated RBC 0.00 Nucleated RBC % 0.0 Sodium 136 Potassium 4.0 Chloride 102 Carbon Dioxide 29 Anion Gap 5.0 L BUN 26 H Creatinine 1.5 H Estimated GFR (MDRD) 45 L Glucose 120 H Calcium 9.4 Magnesium 1.8 Total Bilirubin 0.5 AST 28 ALT 36 Alkaline Phosphatase 91 Total Protein 6.4 Albumin 3.9 Globulin 2.5 Albumin/Globulin Ratio 1.6 - Rads (name of study) CT of the head demonstrates no acute abnormality. Stable left ganglial infarction. CTA showing possible stenoses of the vertebrals. Relevant Findings:: Final report received, EMP independent interpretation of test PD Medical Decision Making - ED course ED course: CBC showing mild macrocytic anemia consistent with prior values. CMP showing modest prerenal azotemia, he has had some fluctuating creatinines over the last few years, the highest before today was 1.3. This is probably consistent with dehydration and he did receive a liter of IV saline in the emergency department here. Subsequently we tried to get about and road test him and he was unable to do so. He was dragging his left leg. His then gave further history that he had been doing that at home and he was shuffling this morning. A formal stroke scale was done and he did have some possible ataxia on [id number] testing for the left leg giving him a possible stroke score of up to 1. CTs were ordered. If this is a stroke, the time of onset is unclear. CTs as shown. No obvious evidence of stroke but a small or posterior stroke may be missed on the studies. I discussed this with the patient and his and we talked about maybe putting him in observation for an MRI tomorrow. Unfortunately he cannot have an MRI due to shrapnel in his knee. We will get him up to walk him again and he was doing better but still having a lot of trouble with the left leg. They are amenable for observation for PT evaluation. I presented case to Dr. Puckett at 7:16 PM and she is happy to place in observation for serial neuro exams and PT OT eval. She understands the inability to get an MRI due to retained metal shrapnel. Departure - Departure Disposition: ED Place in Observation Clinical Impression: Stroke-like symptoms Condition: Stable Forms: PCP List
[2023-04-27 15:52] LABS: BASOPHILS # (AUTO) 0.1 10^3/uL (0.0-0.1); BASOPHILS % (AUTO) 0.9 %; EOSINOPHILS # (AUTO) 0.4 10^3/uL (0.0-0.7); EOSINOPHILS % (AUTO) 5.2 %; HCT - HEMATOCRIT 35.8 % (42.0-52.0); HGB - HEMOGLOBIN 11.6 g/dL (14.0-18.0); LYMPHOCYTES # (AUTO) 1.3 10^3/uL (1.5-3.5); LYMPHOCYTES % (AUTO) 19.2 %; MEAN CORPUSCULAR HEMOGLOBIN 31.3 pg (27.0-31.0); MEAN CORPUSCULAR HGB CONC 32.4 g/dL (32.0-36.0); MEAN CORPUSCULAR VOLUME 96.5 fL (80.0-94.0); MEAN PLATELET VOLUME 10.4 fL (7.4-11.4); MONOCYTES # (AUTO) 0.5 10^3/uL (0.0-1.0); MONOCYTES % (AUTO) 7.1 %; NEUTROPHILS # (AUTO) 4.6 10^3/uL (1.5-6.6); NEUTROPHILS % (AUTO) 67.3 %; PLT - PLATELET COUNT 189 10^3/uL (130-450); RED BLOOD COUNT 3.71 10^6/uL (4.70-6.10); RED CELL DISTRIBUTION WIDTH 14.1 % (12.0-15.0); WHITE BLOOD COUNT 6.8 x10^3/uL (4.8-10.8)
[2023-04-27 15:55] LABS: ALBUMIN 3.9 g/dL (3.2-5.5); ALBUMIN/GLOBULIN RATIO 1.6 (1.0-2.2); BILIRUBIN,TOTAL 0.5 mg/dL (0.2-1.0); CALCIUM 9.4 mg/dL (8.5-10.3); CREATININE 1.5 mg/dL (0.6-1.3); MAGNESIUM 1.8 mg/dL (1.7-2.3); TOTAL PROTEIN 6.4 g/dL (6.4-8.9)
--- NOTE | 2023-04-27 18:27 | CT Report ---
PROCEDURE: HEAD WO INDICATIONS: CVA sx TECHNIQUE: Noncontrast 4.5 mm thick angled axial sections acquired from the foramen magnum to the vertex. For r adiation dose reduction, the following was used: automated exposure control, adjustment of mA and/or kV according to patient size. COMPARISON: Prior head CT, 03/30/2020. Correlation is made with the accompanying head and neck angiog maddison. FINDINGS: Image quality: Excellent. CSF spaces: Basal cisterns are patent. No extra-axial fluid collections. Ventricles are normal in size and shape. Brain: No midline shift. No intracranial masses or hemorrhage. Goodman-white matter interface is norm al. There is a prior infarction seen involving the left basal ganglia and the deep white matter of t he left frontal lobe anteriorly, which is stable compared to 2020. Skull and face: Calvarium and visualized facial bones are intact, without suspicious lesions. Sinuses: Visualized sinuses and mastoids are clear. IMPRESSION: No significant intracranial abnormality is seen. No intracranial hemorrhage is seen. 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 Reviewed by: Fuetnes Paul MD on 04/27/2023 5:25 PM BON Approved by: Fuentes Paul MD on 04/27/2023 5:25 PM [email or web address] Station ID: [id number]
--- NOTE | 2023-04-27 18:32 | CT Report ---
PROCEDURE: CT Angio Head/Neck INDICATIONS: CVA sx TECHNIQUE: After the administration of intravenous contrast, 1 mm thick sections acquired from the aortic arch t hrough the [place]. Post-contrast 4.5 mm thick sections then re-acquired from the foramen m agnum to the vertex. 3-dimensional cmajpvz-uuroaruea-pvvpphmllb (MIP) and/or volume rendering reform ats were acquired of the central intracranial vasculature and neck separately. For radiation dose re duction, the following was used: automated exposure control, adjustment of mA and/or kV according to patient size. CONTRAST: 80 cc Omni 300 COMPARISON: Correlation is made with the accompanying FINDINGS: Image quality: Diagnostic. HEAD CT: CSF Spaces: Basal cisterns are patent. No extra-axial fluid collections. Ventricles are normal in size and shape. Brain: No significant abnormality of the brain is seen for age. Skull and face: Calvarium and visualized facial bones appear intact, without suspicious lesions. Sinuses: Visualized sinuses and mastoids are clear. HEAD CT ANGIOGRAPHY: Anterior circulation: Intracranial internal carotid arteries are normal in size and flow. The flow within the paired anterior cerebral arteries is normal and symmetric. The flow within the middle cer ebral arteries is normal and symmetric. The anterior communicating artery is seen. No aneurysms are seen. Posterior circulation: Visualized portions of the vertebral arteries demonstrate normal caliber, and join to form a normal appearing basilar artery. Incidental note is made of a prominent right poste rior communicating artery, with a diminutive right P1 segment. 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 Flow within the posterior cerebral arteries is normal and symmetric. No aneurysms are seen. NECK CT ANGIOGRAPHY: Carotid system: The great vessels demonstrate a conventional anatomy as they arise from the aortic a [facility]. The origins of the common carotid arteries appear patent. The common carotid arteries demonstr ate normal caliber and courses. The bifurcation regions are both widely patent. The internal caroti d arteries demonstrate normal calibers and courses. Posterior circulation: The origins of the vertebral arteries both appear widely patent. There is 60- 70% narrowing seen involving the right proximal vertebral artery. There is approximately 50% narrowin g involving the left proximal vertebral artery. The more distal extracranial vertebral arteries are o therwise within normal limits. Soft tissues: Visualized neck soft tissues demonstrate no suspicious abnormalities. Bones: No suspicious bony lesions. Prominent cervical spine degenerative change can be seen. Sternot frank wires are partially seen. IMPRESSION: No significant intracranial arterial abnormalities are seen. No significant carotid abnormality is seen. Bilateral stenoses can be seen involving the proximal extracranial vertebral arteries, which is poten tially artifactual. If clinically appropriate, a follow-up neck MR angiogram could be considered for further evaluation/confirmation. Additional findings: Prominent cervical spine degenerative changes. Sternotomy wires The estimate of stenosis included in the report of the imaging study was calculated using the NASCET method Reviewed by: Fuentes Paul MD on 04/27/2023 5:31 PM BON Approved by: Fuentes Paul MD on 04/27/2023 5:31 PM BON Station ID: [id number]
--- NOTE | 2023-04-27 19:16 | HISTORY & PHYSICAL EXAMINATION ---
Chief Complaint - Chief Complaint Chief Complaint: Fall History of Present Illness - Admitted From Admitted From:: ER - History Obtained From Records Reviewed: Yes History obtained from: Patient, pt's , staff, chart Exam Limitations: Virtual exam - History of Present Illness HPI Comment/Other: H&P was conducted via video remotely, using Access Cart. Patient is in [place]. Physician is in [place]. Pt's , Krupa Varela, is at bedside. 82 yo M with PMH of Chronic Dizziness, Frequent Falls, CAD S/p CABG, CHF, HTN, DM type 2, VERÓNICA on CPAP, Liver Cirrhosis, GERD, Depression, and LBP presented to the ER via EMS s/p GLF at home. Pt had Cardiac Caths with stents placed 6 weeks ago and again 2 weeks ago. He has felt well since then, in his usual state of health. He has chronic dizziness, which has not changed. He uses a walker or cane to ambulate. This AM, his SBP was 172. He contacted his Ecclesiastical Worker and was told to double his Losartan, which he did. Today, at mid-day, he used his walker to go to the bathroom. In the bathroom, he turned with his walker, then fell down. He did not feel more dizzy than usual. He did not trip on anything. He thinks he just turned in an awkward way. No head injury. Once he fell, he c ould not get up. His called EMS. Pt felt generalized weakness after fall. No obvious injury. When EMS arrived, his BP was 100/50. No CP/SOB/cough/N/V/abdo pain/F/C/Dysuria. In the ER, BP 124/56, Hgb 11.6, MCV 96.5, CR 1.5 CT Head: NAD, stable remote L Basal Ganglia infarct CTA Head/Neck: possible stenoses B/L vertebral art; recommend MRA. Pt was given IVF in the ER. ER Physician noted slight ataxia with LLE. Pt could not walk without assistance d/t LLE Weakness. History - Past Medical History Cardiovascular: reports: Congestive heart failure, Hypertension, Coronary artery disease, Other Respiratory: reports: Sleep apnea, CPAP use Endocrine/Autoimmune: reports: Type 2 diabetes GI: reports: GERD, Esophageal varices, Cirrhosis, Other : reports: Nocturia, Frequency, Other HEENT: reports: Chronic vision loss, Chronic hearing loss Psych: reports: Depression Musculoskeletal: reports: Osteoarthritis, Chronic back pain Derm: reports: Other MRSA Hx?: No - Past Surgical History General: reports: Cholecystectomy, Hiatal hernia repair, Other Ortho: reports: Rotator cuff repair, Carpal Tunnel surgery, Other Cardiovascular: reports: CABG - POLST Patient has POLST: No Meds/Allgy - Home Medications Home Medications: Ambulatory Orders Medication Instructions Recorded Confirmed Acetaminophen with Codeine 12.5 ml PO 03/05/23 03/05/23 [Acetaminophen-Codeine Solution] Albuterol Sulfate [Proair 2 puffs IH Q6HR PRN 03/05/23 03/05/23 Respiclick] Ascorbic Acid [Vitamin C] 250 mg PO DAILY 03/05/23 03/05/23 Cyanocobalamin (Vitamin B-12) 1,000 mcg PO DAILY 03/05/23 03/05/23 [Vitamin B-12] Diclofenac Sodium 1% Gel [Voltaren 50 gm TOP DAILY 03/05/23 03/05/23 Gel] Finasteride [Proscar] 5 mg PO DAILY 03/05/23 03/05/23 Fluticasone [Flonase] 2 sprays CHAPIS DAILY 03/05/23 03/05/23 Gabapentin [Neurontin] 300 mg PO HS 03/05/23 03/05/23 Ketoconazole 2% Cream [Nizoral 2% 1 applic TOP DAILY 03/05/23 03/05/23 Cream] Loratadine [Claritin] 10 mg PO DAILY 03/05/23 03/05/23 Losartan Potassium 25 mg PO DAILY 03/05/23 03/05/23 Nitroglycerin [Nitrostat] 0.4 mg SL [id number] 03/05/23 03/05/23 Omeprazole 40 mg PO DAILY 03/05/23 03/05/23 Tamsulosin HCl [Flomax] 0.4 mg PO QPM 03/05/23 03/05/23 Venlafaxine HCl [Effexor Xr] 150 mg PO DAILY 03/05/23 03/05/23 buPROPion HCL [Wellbutrin Xl] 300 mg PO DAILY 03/05/23 03/05/23 carvediloL [Coreg] 3.125 mg PO QPM 03/05/23 03/05/23 metFORMIN [Glucophage] 500 mg PO DAILY 03/05/23 03/05/23 predniSONE [Deltasone] 20 mg PO BID 03/05/23 03/05/23 Aspirin [Vazalore] See Rx Instructions .ROUTE .COMPLEX 04/13/23 04/13/23 amLODIPine [Norvasc] See Rx Instructions .ROUTE .COMPLEX 04/13/23 04/13/23 - Allergies Allergies/Adverse Reactions: Allergies Allergy/AdvReac Type Severity Reaction Status Date / Time No Known Drug Allergies Allergy Verified 04/27/23 15:19 Review of Systems - All Other Systems All Other Systems: reports: Reviewed and negative Exam - Vital Signs Reviewed Vital Signs: Yes Vital Signs: Vital Signs x48h Temp Pulse Resp BP Pulse Ox 04/27/23 15:21 36.7 C 62 14 127/47 L 94 04/27/23 15:19 36.8 C 69 16 124/56 L 98 - Physical Exam General Appearance: positive: No acute distress, Alert Eyes Bilateral: positive: PERRL, No scleral icterus Respiratory: positive: No respiratory distress, Other (Access cart stethoscope not working; per ER Provider: CTA B/L) Cardiovascular: positive: Other (Access cart stethoscope not working; per ER Provider: RRR, no murmur) Abdomen: positive: Other (per ER Provider: non-distended, NT, Soft) Neurologic/Psychiatric: positive: Oriented x3, CN's nml (2-12), Mood/affect nml, Other (per ER Provider: mild ataxia with heel-moura LLE) Conclusion/Plan - Problem List (1) Left leg weakness Conclusion/Plan: LLE Weakness Fall Frequent Falls Generalized Weakness -CT Head: NAD, stable remote L Basal Ganglia infarct -CTA Head/Neck: possible stenoses B/L vertebral art; recommend MRA. -ER Physician noted slight ataxia with LLE. Pt could not walk without assistance d/t LLE Weakness; this is new -admit to Obs/Med Tele -ASA 325 mg now, then 81 mg daily -Neuro checks -would order MRI, but pt has metal piece in his leg, so was told that he could not have MRI in past. He does not know how he got the metal in his leg. -PT/OT/CM consults -pt would consider Rehab/SNF, if needed -U/A ordered -Orthostatic BPs ordered Chronic Dizziness -unchanged per pt -Meclizine PRN LASHAWN -CR 1.5; baseline 1.0-1.3 -Pt was given IVF in the ER. -continue IVF -hold home medications: Losartan -avoid nephrotoxins Low BP -BP was 100/50-124/56 -increased his Losartan this AM -hold home medications: Losartan and Amlodipine for now Anemia, Macrocytic -Hgb 11.6, MCV 96.5 -check B12/Folate CAD S/p CABG CHF HTN -s/p stents placed 6 weeks ago and 2 weeks ago. -continue home medications: Coreg, ASA, NTG PRN -hold home medications: Losartan and Amlodipine d/t LASHAWN and low BP; restart as able DM type 2 -accuchecks, SS Insulin, Hypoglycemic protocol -hold home PO medications: Metformin -check Hgba1c VERÓNICA on CPAP -continue CPAP GERD -continue home medications: PPI BPH -continue home medications: Finasteride, Flomax Depression -continue home medications: Effexor, Wellbutrin XR LBP -continue home medications: Tylenol with Codeine PRN -unclear if he takes Prednisone (and for what); med rec when available VTE Prophylaxis: Heparin SQ Code Status: D/W pt; he is Full Code ~Lianna Puckett MD Hospitalist - Lab Results Fish Bones: 04/27/23 15:34 04/27/23 15:34
[2023-04-27] MEDS ORDERED: ACETAMINOPHEN 325 MG TABLET PO PRN (19:39)
[2023-04-27] MEDS ORDERED: ONDANSETRON ODT 4 MG TABLET TL PRN (19:56)
[2023-04-27] MEDS ORDERED: ONDANSETRON 4 MG/2 ML VIAL IVP PRN (19:56)
[2023-04-27] MEDS ORDERED: SODIUM CHLORIDE FLUSH 0.9% 10 ML SYRINGE IVP PRN (19:56)
[2023-04-27] MEDS ORDERED: ASPIRIN 325 MG TABLET PO ONE (20:00)
[2023-04-27] MEDS ORDERED: NITROGLYCERIN SL 0.4 MG TABLET SL PRN (20:00)
[2023-04-27] MEDS ORDERED: ALBUTEROL NEB 2.5 MG/3 ML INH PRN (20:39)
[2023-04-27] MEDS ORDERED: ACETAMINOPHEN/CODEINE 300 MG/30 MG TABLET PO PRN (20:56)
[2023-04-27] MEDS ORDERED: carvediloL 3.125 MG TABLET PO SCH (21:00)
[2023-04-27] MEDS ORDERED: GABAPENTIN 300 MG CAPSULE PO SCH (21:00)
[2023-04-27] MEDS ORDERED: ATORVASTATIN 40 MG TABLET PO SCH (21:00)
[2023-04-27] MEDS ORDERED: TAMSULOSIN 0.4 MG CAPSULE PO SCH (21:00)
[2023-04-27] MEDS: SODIUM CHLORIDE 0.9% 1,000 ML IV SCH (21:21)
[2023-04-27] MEDS: HEPARIN 5,000 UNIT/ML VIAL SUBQ SCH (21:22)
[2023-04-27] MEDS ORDERED: iohexoL-300 100 ML VIAL IVP ONE (21:23)
[2023-04-27] MEDS: INSULIN LISPRO 300 UNIT/3 ML PEN SUBQ SCH (21:25)
[2023-04-27] MEDS ORDERED: MECLIZINE 12.5 MG TABLET PO PRN (21:32)
[2023-04-27 21:45] LABS: BILIRUBIN,URINE NEGATIVE (NEGATIVE); GLUCOSE, URINE (UA) NEGATIVE (NEGATIVE); KETONES,URINE (UA) NEGATIVE (NEGATIVE); LEUKOCYTE ESTERASE, URINE NEGATIVE (NEGATIVE); NITRITE,URINE NEGATIVE (NEGATIVE); OCCULT BLOOD,URINE NEGATIVE (NEGATIVE); PH,URINE 5.5 PH (5.0-7.5); PROTEIN,URINE NEGATIVE (NEGATIVE); UROBILINOGEN,URINE 0.2 (NORMAL) E.U./dL (NORMAL)
[2023-04-27 21:49] LABS: CLARITY,URINE CLEAR (CLEAR)
[2023-04-27 21:53] LABS: BACTERIA,URINE None Seen /HPF (None Seen); RBC,URINE 0-5 /HPF (0-5); SQUAMOUS EPITHELIAL CELL,UR NONE SEEN (<= Few); WBC,URINE 0-3 /HPF (0-3)
[2023-04-28] MEDS: SODIUM CHLORIDE FLUSH 0.9% 10 ML SYRINGE IVP SCH ×2 (02:45→08:41)
[2023-04-28] MEDS ORDERED: PANTOPRAZOLE 40 MG TABLET PO SCH (07:00)
[2023-04-28] MEDS ORDERED: MULTIVITAMIN TABLET PO SCH (08:00)
[2023-04-28] MEDS: INSULIN LISPRO 300 UNIT/3 ML PEN SUBQ SCH (08:20)
[2023-04-28] MEDS: HEPARIN 5,000 UNIT/ML VIAL SUBQ SCH (08:38)
[2023-04-28] MEDS ORDERED: DICLOFENAC SODIUM 1% GEL 50 GM TUBE TOP SCH (09:00)
[2023-04-28] MEDS ORDERED: ASCORBIC ACID 500 MG TABLET PO SCH (09:00)
[2023-04-28] MEDS ORDERED: FLUTICASONE NASAL SPRAY NAS SCH (09:00)
[2023-04-28] MEDS ORDERED: VENLAFAXINE ER 75 MG CAPSULE PO SCH (09:00)
[2023-04-28] MEDS ORDERED: FINASTERIDE 5 MG TABLET PO SCH (09:00)
[2023-04-28] MEDS ORDERED: KETOCONAZOLE 2% CREAM 15 GM TUBE TOP SCH (09:00)
[2023-04-28] MEDS ORDERED: LORATADINE 10 MG TABLET PO SCH (09:00)
[2023-04-28] MEDS ORDERED: buPROPion XL 150 MG TABLET PO SCH (09:00)
[2023-04-28] MEDS ORDERED: ASPIRIN CHEW 81 MG TABLET PO SCH (09:00)
[2023-04-28] MEDS ORDERED: CYANOCOBALAMIN 500 MCG TABLET PO SCH (09:00)
[2023-04-28 11:17] LABS: ESTIMATED AVERAGE GLUCOSE 137 mg/dL (70-100); HEMOGLOBIN A1c% 6.4 % (4.27-6.07)
--- NOTE | 2023-04-28 11:31 | Discharge Plan ---
Discharge Plan Problem Reviewed?: Yes Disposition: Home Health Service Condition: Stable Diet: Regular Activity Restrictions: Activity as Tolerated Shower Restrictions: No Driving Restrictions: Yes (no driving) Assistance Devices: Walker Health Concerns: You were brought in by ambulance to our emergency room because you had a ground- level fall. You have a long history of vertigo but your family and you felt that vertigo was not the reason you fell this time. By your history you just tripped and fell. But you are having left leg weakness and your family was worried about a possible stroke and you were brought in overnight to make sure that was not a problem. 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 But no new stroke. Overnight we monitored your heart rate and there were no irregular heartbeats. This morning you feel like you are stable to go home. Plan of Treatment: Please continue occupational and physical therapy in the outpatient setting. Please see your primary care provider for follow-up in the next 1 to 2 weeks. Care Goals: To continue to maintain your current functional status and not lose anymore ground In addition to evaluating you for possible new left leg weakness and loss of balance, we found you to have a little bit of dehydration. Make sure that you drink at least three quarters of a liter of water a day. Assessment: Patient is alert, oriented, and able to self determine goals of care. No Smoking: If you smoke, Please STOP! Call for help. Follow-up with: Tricia Jackson ARNP [Credentialed Staff Provider] -
--- NOTE | 2023-04-28 11:51 | PHARMACY PROGRESS NOTE ---
- Best Possible Medication History Admit Date and Time: 04/27/231955 Processed by: Pharmacy Medication History completed: Yes Patient Interview: Completed Secondary Source(s): Insurance records As the person ultimately responsible for medication therapy, providers are able to order a medication from an existing home medication list in [facility] via the "Reconcile Routine" prior to Confirmation of that medication by technical support agent. Such practice is discouraged except when the physician, in their clinical judgment, deems that a medical need exists for a medication without regard to previous use.
[2023-04-28] MEDS: SODIUM CHLORIDE 0.9% 1,000 ML IV SCH (12:24)
[2023-04-28 12:42] VITALS: BP 150/43; O2SAT 100
--- NOTE | 2023-04-28 21:54 | DISCHARGE SUMMARY ---
"Discharge Summary Admit Date: 04/27/23 Discharge Date: 04/28/23 Discharging Provider: Muna Hardy MD Primary Care Provider: KEATON Silva Code Status: Do Not Attempt Resuscitation Condition at Discharge: Stable Discharge Disposition: Home Health Service - DIAGNOSES Discharge Diagnoses with Status of Each Condition: 1. Left leg weakness after #2 2. Fall at home 3. Chronic vertigo 4. Acute kidney injury - HPI History of Present Illness: 82 yo M with PMH of Chronic Dizziness, Frequent Falls, CAD S/p CABG, CHF, HTN, DM type 2, VERÓNICA on CPAP, Liver Cirrhosis, GERD, Depression, and LBP presented to the ER via EMS s/p GLF at home. Pt had Cardiac Caths with stents placed 6 weeks ago and again 2 weeks ago. He has felt well since then, in his usual state of health. He has chronic dizziness, which has not changed. He uses a walker or cane to ambulate. This AM, his SBP was 172. He contacted his Sales Estimator and was told to double his Losartan, which he did. Today, at mid-day, he used his walker to go to the bathroom. In the bathroom, he turned with his walker, then fell down. He did not feel more dizzy than usual. He did not trip on anything. He thinks he just turned in an awkward way. No head injury. Once he fell, he could not get up. His called EMS. Pt felt generalized weakness after fall. No obvious injury. When EMS arrived, his BP was 100/50. No CP/SOB/cough/N/V/abdo pain/F/C/Dysuria. In the ER, BP 124/56, Hgb 11.6, MCV 96.5, CR 1.5 CT Head: NAD, stable remote L Basal Ganglia infarct CTA Head/Neck: possible stenoses B/L vertebral art; recommend MRA. Pt was given IVF in the ER. ER Physician noted slight ataxia with LLE. Pt could not walk without assistance d/t LLE Weakness. - Past Medical History Cardiovascular: reports: Congestive heart failure, Hypertension, Coronary artery disease, Other Respiratory: reports: Sleep apnea, CPAP use Endocrine/Autoimmune: reports: Type 2 diabetes GI: reports: GERD, Esophageal varices, Cirrhosis, Other : reports: Nocturia, Frequency, Other HEENT: reports: Chronic vision loss, Chronic hearing loss Psych: reports: Depression Musculoskeletal: reports: Osteoarthritis, Chronic back pain Derm: reports: Other MRSA Hx?: No - CONSULTS | PROCEDURES Procedures: Head CT without significant intracranial abnormality. No intracranial hemo rrhage. Stable remote infarction involving the left basal ganglia and left deep white matter. Angiography CT have normal common carotid arteries demonstrating normal caliber and course. Bifurcation patent. Internal carotids normal caliber and courses. Posterior circulation is a 60 to 70% narrowing involving the right proximal vertebral artery. 50% narrowing involving the left proximal vertebral artery. - HOSPITAL COURSE Hospital Course: He is placed on telemetry overnight to make sure there is no irregular rhythms. Mainly it was a possibility of a stroke because of the weak leg weakness. He felt like his leg problem was musculoskeletal. He was not concerned about it. CT and MRI was as above. Telemetry was negative. The next morning he felt stable enough to go home. Discharge exam had an 82-year-old pleasant gentleman who is oriented to person place and situation. Wonderful story about how his name was known in the [facility] and how the family came to this country. Neck is supple. No carotid bruits. Lungs have coarse upper airway sounds with prolonged and exhalation but no crackles rhonchi or wheezing. He is got a barrel chest. Regular rate and rhythm. Abdomen soft, nontender, obese. Neurologically his problems are mainly musculoskeletal. He has difficulty ambulating and needs a walker. He is stiff. Aches from hips, knees. This document was made in part using voice recognition software. While efforts are made to proofread this document, sound alike and grammatical errors may occur. - ALLERGIES Allergies/Adverse Reactions: Allergies Allergy/AdvReac Type Severity Reaction Status Date / Time No Known Drug Allergies Allergy Verified 04/27/23 15:19 - MEDICATIONS Home Medications: Ambulatory Orders Medication Instructions Recorded Confirmed Albuterol Sulfate [Proair 2 puffs IH Q6HR PRN 03/05/23 04/28/23 Respiclick] Ascorbic Acid [Vitamin C] 250 mg PO DAILY 03/05/23 04/28/23 Cyanocobalamin (Vitamin B-12) 1,000 mcg PO DAILY 03/05/23 04/28/23 [Vitamin B-12] Diclofenac Sodium 1% Gel [Voltaren 50 gm TOP DAILY PRN 03/05/23 04/28/23 Gel] Finasteride [Proscar] 5 mg PO DAILY 03/05/23 04/28/23 Fluticasone [Flonase] 2 sprays CHAPIS DAILY 03/05/23 04/28/23 Gabapentin [Neurontin] 300 mg PO HS 03/05/23 04/28/23 Loratadine [Claritin] 10 mg PO DAILY 03/05/23 04/28/23 Nitroglycerin [Nitrostat] 0.4 mg SL [id number] 03/05/23 04/28/23 Venlafaxine HCl [Effexor Xr] 150 mg PO DAILY 03/05/23 04/28/23 buPROPion HCL [Wellbutrin Xl] 300 mg PO DAILY 03/05/23 04/28/23 carvediloL [Coreg] 3.125 mg PO QPM 03/05/23 04/28/23 metFORMIN [Glucophage] 500 mg PO DAILY 03/05/23 04/28/23 Aspirin [Vazalore] 81 mg PO DAILY 04/13/23 04/28/23 amLODIPine [Norvasc] 5 mg PO DAILY 04/13/23 04/28/23 Atorvastatin Calcium [Lipitor] 80 mg PO HS 04/28/23 04/28/23 Clopidogrel [Plavix] 75 mg PO DAILY 04/28/23 04/28/23 Losartan/Hydrochlorothiazide 1 each PO DAILY 04/28/23 04/28/23 [Losartan-Hctz 100-12.5 mg Tab] Pantoprazole Sodium 40 mg PO QDAC 04/28/23 04/28/23 - LABS Result Diagrams: 04/27/23 15:34 04/27/23 15:34"
== END 2023-04-28 13:17 | disposition home health service (06) ==
LOC: EDUNIT# → ED 15:14 → MS2 19:56
PROVIDERS: ADMIT Internal Medicine; ATTEND Specialist
DX: R29.898 Other symptoms and signs involving the musculoskeletal system (principal); R42 Dizziness and giddiness; N17.9 Acute kidney failure, unspecified; G47.33 Obstructive sleep apnea (adult) (pediatric); R26.0 Ataxic gait; R53.1 Weakness; E11.9 Type 2 diabetes mellitus without complications; I11.0 Hypertensive heart disease with heart failure; I50.9 Heart failure, unspecified; I25.10 Atherosclerotic heart disease of native coronary artery without angina pectoris; K21.9 Gastro-esophageal reflux disease without esophagitis; K74.60 Unspecified cirrhosis of liver; H54.7 Unspecified visual loss; H91.90 Unspecified hearing loss, unspecified ear; G89.29 Other chronic pain; M54.50 Low back pain, unspecified; D53.9 Nutritional anemia, unspecified; N40.0 Benign prostatic hyperplasia without lower urinary tract symptoms; F32.A Depression, unspecified; Z79.4 Long term (current) use of insulin; Z79.84 Long term (current) use of oral hypoglycemic drugs; Z79.899 Other long term (current) drug therapy; Z90.49 Acquired absence of other specified parts of digestive tract; Z91.81 History of falling; Z95.1 Presence of aortocoronary bypass graft; Z95.5 Presence of coronary angioplasty implant and graft
CPT/HCPCS: 36415; 70450; 70496; 70498; 80053; 81001; 82607; 82746; 83036; 83735; 85025; 94660; 96360; 96372; 99285; A9270; G0378; Q9967; 87086

== ENCOUNTER 2023-09-01 14:25 | Outpatient (CLI) | payer MEDICARE, OTHER ==
[2023-09-01 19:51] LABS: BASOPHILS # (AUTO) 0.1 10^3/uL (0.0-0.1); EOSINOPHILS # (AUTO) 0.4 10^3/uL (0.0-0.7); EOSINOPHILS % (AUTO) 4.5 %; HCT - HEMATOCRIT 41.7 % (42.0-52.0); HGB - HEMOGLOBIN 13.4 g/dL (14.0-18.0); LYMPHOCYTES # (AUTO) 1.9 10^3/uL (1.5-3.5); LYMPHOCYTES % (AUTO) 22.5 %; MEAN CORPUSCULAR HEMOGLOBIN 30.2 pg (27.0-31.0); MEAN CORPUSCULAR HGB CONC 32.1 g/dL (32.0-36.0); MEAN CORPUSCULAR VOLUME 93.9 fL (80.0-94.0); MEAN PLATELET VOLUME 11.1 fL (7.4-11.4); MONOCYTES # (AUTO) 0.7 10^3/uL (0.0-1.0); NEUTROPHILS # (AUTO) 5.5 10^3/uL (1.5-6.6); NEUTROPHILS % (AUTO) 63.9 %; PLT - PLATELET COUNT 246 10^3/uL (130-450); RED BLOOD COUNT 4.44 10^6/uL (4.70-6.10); RED CELL DISTRIBUTION WIDTH 14.2 % (12.0-15.0); WHITE BLOOD COUNT 8.6 x10^3/uL (4.8-10.8)
[2023-09-01 20:06] LABS: ALBUMIN 4.1 g/dL (3.2-5.5); ALBUMIN/GLOBULIN RATIO 1.5 (1.0-2.2); BILIRUBIN,TOTAL 0.5 mg/dL (0.2-1.0); CALCIUM 9.4 mg/dL (8.5-10.3); CREATININE 1.1 mg/dL (0.6-1.3); POTASSIUM 4.1 mmol/L (3.5-4.5); TOTAL PROTEIN 6.9 g/dL (6.4-8.9)
[2023-09-01 20:23] LABS: THYROID STIMULATING HORMONE 1.56 uIU/mL (0.34-5.60)
--- NOTE | 2023-09-01 20:37 | XRAY Report ---
PROCEDURE: Chest 2V INDICATIONS: DYSPNEA ON EXERTION TECHNIQUE: 2 views of the chest were acquired. COMPARISON: Lung bases on CT abdomen pelvis 05/30/2023. CXR 03/05/2023. FINDINGS: Surgical changes and devices: Post median sternotomy. Clips in the upper abdomen. Lungs and pleura: No pleural effusions or pneumothorax. Lungs are clear. Mediastinum: Mediastinal contours appear normal. Heart size is normal. Bones and chest wall: No suspicious bony lesions. Overlying soft tissues appear unremarkable. IMPRESSION: No acute cardiopulmonary process. Reviewed by: Fermin Cyr MD on 09/01/2023 8:35 PM PST Approved by: Fermin Cyr MD on 09/01/2023 8:35 PM PST Station ID: [id number]
== END 2023-09-01 14:26 | disposition home or self-care (01) ==
LOC: DI.S 14:25
PROVIDERS: ATTEND Registered Nurse
DX: R07.89 Other chest pain (principal); R06.09 Other forms of dyspnea; R63.0 Anorexia; M62.81 Muscle weakness (generalized); R53.83 Other fatigue; R53.1 Weakness; Z86.79 Personal history of other diseases of the circulatory system; I25.2 Old myocardial infarction
CPT/HCPCS: 36415; 80053; 84443; 84484; 85025; 85379

== ENCOUNTER 2023-09-01 21:31 | Outpatient (CLI) | payer MEDICARE, OTHER | END 2023-09-01 21:32 | disposition short-term general hospital (02) | LOC: EMS 21:31 | DX: I21.4 Non-ST elevation (NSTEMI) myocardial infarction (principal) | CPT/HCPCS: A0425; A0427 ==

== ENCOUNTER 2023-09-05 10:01 | Outpatient (CLI) | payer MEDICARE, OTHER | END 2023-09-05 10:02 | disposition short-term general hospital (02) | LOC: EMS 10:01 | DX: R07.9 Chest pain, unspecified (principal); R53.1 Weakness | CPT/HCPCS: A0425; A0429 ==

== ENCOUNTER 2023-10-06 15:28 | Emergency (ER) | payer MEDICARE, OTHER ==
--- NOTE | 2023-10-06 16:08 | XRAY Report ---
PROCEDURE: Chest 1V INDICATIONS: Chest pain TECHNIQUE: One view of the chest was acquired. COMPARISON: None. FINDINGS: Surgical changes and devices: Median sternotomy. Lungs and pleura: No pleural effusions or pneumothorax. Lungs are clear. Mediastinum: Mediastinal contours appear normal. Heart size is normal. Bones and chest wall: No suspicious bony lesions. Overlying soft tissues appear unremarkable. IMPRESSION: No acute cardiopulmonary process. Reviewed by: Jenny Guy MD on 10/06/2023 4:06 PM [facility] Approved by: Jenny Guy MD on 10/06/2023 4:06 PM [facility] Station ID: [id number]
[2023-10-06 16:22] LABS: BASOPHILS % (AUTO) 0.8 %; EOSINOPHILS # (AUTO) 0.3 10^3/uL (0.0-0.7); EOSINOPHILS % (AUTO) 6.4 %; HCT - HEMATOCRIT 29.5 % (42.0-52.0); HGB - HEMOGLOBIN 9.4 g/dL (14.0-18.0); LYMPHOCYTES # (AUTO) 1.1 10^3/uL (1.5-3.5); LYMPHOCYTES % (AUTO) 20.6 %; MEAN CORPUSCULAR HGB CONC 31.9 g/dL (32.0-36.0); MEAN CORPUSCULAR VOLUME 94.2 fL (80.0-94.0); MEAN PLATELET VOLUME 10.4 fL (7.4-11.4); MONOCYTES # (AUTO) 0.5 10^3/uL (0.0-1.0); MONOCYTES % (AUTO) 9.8 %; NEUTROPHILS # (AUTO) 3.3 10^3/uL (1.5-6.6); NEUTROPHILS % (AUTO) 62.2 %; PLT - PLATELET COUNT 170 10^3/uL (130-450); RED BLOOD COUNT 3.13 10^6/uL (4.70-6.10); RED CELL DISTRIBUTION WIDTH 13.9 % (12.0-15.0); WHITE BLOOD COUNT 5.3 x10^3/uL (4.8-10.8)
[2023-10-06 16:45] LABS: ALBUMIN 3.6 g/dL (3.2-5.5); ALBUMIN/GLOBULIN RATIO 1.3 (1.0-2.2); BILIRUBIN,TOTAL 0.4 mg/dL (0.2-1.0); CALCIUM 9.2 mg/dL (8.5-10.3); CREATININE 1.1 mg/dL (0.6-1.3); POTASSIUM 4.2 mmol/L (3.5-4.5); TOTAL PROTEIN 6.3 g/dL (6.4-8.9)
[2023-10-06 16:51] LABS: TROPONIN I HIGH SENSITIVITY 5.9 ng/L (2.3-19.7)
--- NOTE | 2023-10-06 18:05 | ED Physician Documentation ---
History of Present Illness - Stated complaint Stated Complaint: LOW BP,DIZZY - Chief complaint Chief Complaint: Cardiac - History obtained from History obtained from: Patient, Family - History of Present Illness Timing: Today Pain level max: 0 Pain level now: 0 - Additonal information Additional information: 83-year-old male presents to the emergency department with his . He states he was told to come here by the [facility] clinic. He states that he was at cardiac rehab today he felt mildly lightheaded during his rehab. He states that the diastolic blood pressure was low. Symptoms resolved with the cessation of exercise. No chest pain. Has had cardiac stents. Does not have any symptoms currently. No lightheadedness or dizziness. Patient is fully asymptomatic. No dark or tarry stools. No vomiting. No fevers. No chills. No recent illnesses. Review of Systems Constitutional: denies: Fever, Chills GI: denies: Vomiting, Diarrhea Skin: denies: Rash Musculoskeletal: denies: Neck pain, Back pain Neurologic: denies: Headache PD PAST MEDICAL HISTORY - Past Medical History Cardiovascular: Congestive heart failure, Hypertension, Coronary artery disease, Other Respiratory: Sleep apnea, CPAP use Neuro: CVA Endocrine/Autoimmune: Type 2 diabetes GI: GERD, Esophageal varices, Cirrhosis, Other : Nocturia, Frequency, Other HEENT: Chronic vision loss, Chronic hearing loss Psych: Depression Musculoskeletal: Osteoarthritis, Chronic back pain Derm: Other - Past Surgical History Past Surgical History: Yes General: Cholecystectomy, Hiatal hernia repair, Other Ortho: Rotator cuff repair, Carpal Tunnel surgery, Other Cardiovascular: CABG - Present Medications Home Medications: Ambulatory Orders Medication Instructions Recorded Confirmed Albuterol Sulfate [Proair 2 puffs IH Q6HR PRN 03/05/23 06/18/23 Respiclick] Ascorbic Acid [Vitamin C] 250 mg PO DAILY 03/05/23 06/18/23 Cyanocobalamin (Vitamin B-12) 1,000 mcg PO DAILY 03/05/23 06/18/23 [Vitamin B-12] Diclofenac Sodium 1% Gel [Voltaren 50 gm TOP DAILY PRN 03/05/23 06/18/23 Gel] Finasteride [Proscar] 5 mg PO DAILY 03/05/23 06/18/23 Fluticasone [Flonase] 2 sprays CHAPIS DAILY 03/05/23 06/18/23 Gabapentin [Neurontin] 300 mg PO HS 03/05/23 06/18/23 Nitroglycerin [Nitrostat] 0.4 mg SL [id number] 03/05/23 06/18/23 buPROPion HCL [Wellbutrin Xl] 300 mg PO DAILY 03/05/23 06/18/23 carvediloL [Coreg] 3.125 mg PO QPM 03/05/23 06/18/23 metFORMIN [Glucophage] 500 mg PO DAILY 03/05/23 06/18/23 Aspirin [Vazalore] 81 mg PO DAILY 04/13/23 06/18/23 amLODIPine [Norvasc] 5 mg PO DAILY 04/13/23 06/18/23 Atorvastatin Calcium [Lipitor] 80 mg PO HS 04/28/23 06/18/23 Clopidogrel [Plavix] 75 mg PO DAILY 04/28/23 06/18/23 Losartan/Hydrochlorothiazide 1 each PO DAILY 04/28/23 06/18/23 [Losartan-Hctz 100-12.5 mg Tab] Pantoprazole Sodium 40 mg PO QDAC 04/28/23 06/18/23 Cetirizine [ZyrTEC] 10 mg PO DAILY 05/30/23 06/18/23 HYDROcod/ACETAM 5/325 [Carlotta 5/325] 1 - 2 tablet PO Q6H PRN #14 tablet 05/30/23 06/18/23 Omeprazole 1 cap PO BID 06/18/23 06/18/23 Tamsulosin HCl [Flomax] 1 tab PO DAILY 06/18/23 06/18/23 - Allergies Allergies/Adverse Reactions: Allergies Allergy/AdvReac Type Severity Reaction Status Date / Time No Known Drug Allergies Allergy Verified 10/06/23 15:40 - Social History Does the pt smoke?: No Smoking Status: Never smoker Does the pt drink ETOH?: No Does the pt have substance abuse?: No - Immunizations Immunizations are current?: Yes - POLST Patient has POLST: No PD ED PE NORMAL - Vitals Vital signs reviewed: Yes - General General: Alert and oriented X 3, No acute distress - HEENT HEENT: PERRL, Moist mucous membranes - Neck Neck: Supple, no meningeal sign - Cardiac Cardiac: RRR, Strong equal pulses - Respiratory Respiratory: No respiratory distress, Clear bilaterally - Abdomen Abdomen: Soft, Non tender, Non distended - Derm Derm: Warm and dry - Extremities Extremities: No edema, No calf tenderness / cord - Neuro Neuro: Alert and oriented X 3 - Psych Psych: Normal mood, Normal affect Results - Vitals Vitals: Vital Signs - 24 hr 10/06/23 10/06/23 10/06/23 15:30 17:18 18:31 Temperature 36.7 C Heart Rate 72 69 73 Respiratory 15 16 16 Rate Blood Pressure 145/56 H 145/56 H 162/53 H O2 Saturation 99 98 97 Oxygen O2 Source Room air - EKG (time done) 1532 EKG releavant findings:: EKG personally interpreted by author of this note. Relevant findings are: Rate: Rate (enter#) (71) [place]: Normal Intervals: Prolonged HI QRS: Normal Ischemia: Non specific changes (flat twaves) - Labs Labs: Laboratory Tests 10/06/23 10/06/23 16:11 16:11 WBC 5.3 RBC 3.13 L Hgb 9.4 L Hct 29.5 L MCV 94.2 H MCH 30.0 MCHC 31.9 L RDW 13.9 Plt Count 170 MPV 10.4 Neut # (Auto) 3.3 Lymph # (Auto) 1.1 L [place] # (Auto) 0.5 Eos # (Auto) 0.3 Baso # (Auto) 0.0 Absolute Nucleated RBC 0.00 Nucleated RBC % 0.0 Sodium 138 Potassium 4.2 Chloride 107 Carbon Dioxide 27 Anion Gap 4.0 L BUN 31 H Creatinine 1.1 Estimated GFR (MDRD) 64 L Glucose 214 H Calcium 9.2 Total Bilirubin 0.4 AST 20 ALT 17 Alkaline Phosphatase 85 Troponin I High Sens 5.9 Total Protein 6.3 L Albumin 3.6 Globulin 2.7 Albumin/Globulin Ratio 1.3 Lipase 41 - Rads (name of study) cxr Relevant Findings:: Final report received, See rad report PD Medical Decision Making - ED course Complexity details: reviewed results, re-evaluated patient, considered differential (No ST elevation [place], no aortic dissection, no PE, no tension pneumothorax, no aortic aneurysm), d/w patient ED course: Patient with mild dizziness at cardiac rehab earlier today. None now. Blood pressure normal here. Asymptomatic. No chest pain. No shortness of breath. No acute findings on laboratory testing, EKG or chest x-ray to explain his sym ptoms. Does have a mild anemia, unclear exactly what his baseline is as he was recently hospitalized at another facility and we do not have access to their labs. His last hemoglobin here was 11 and it is 9 today. Recommend repeat hemoglobin with his doctor to ensure it is not continuing to drop. He denies any dark or tarry stools, or evidence of bleeding. Ambulating without difficulty in the emergency department. No dizziness, lightheadedness, shortness of breath with ambulation. Patient counseled regarding signs and symptoms for which I believe and urgent re-evaluation would be necessary. Patient with good understanding of and agreement to plan and is comfortable going home at this time This document was made in part using voice recognition software. While efforts are made to proofread this document, sound alike and grammatical errors may occur. Departure - Departure Disposition: 01 Home, Self Care Clinical Impression: Dizziness Condition: Good Instructions: ED Dizziness UKO Follow-Up: your,doctor in 1 week [Other] Comments: Your laboratory studies do not show any acute abnormalities today, other than your hemoglobin is lower than it was a month ago, I do not know what it was when you left the hospital last month however so I do not have that old value to compare it to. It is at 9.4 today. You look like you have been normally between 11 and 13. You should have your hemoglobin rechecked in 1 week with your doctor. Please monitor for any signs of bleeding including dark and tarry stools at home. Please return if you worsen. Forms: PCP List Discharge Date/Time: 10/06/23 18:33
[2023-10-06 18:40] VITALS: BP 162/53; O2SAT 97
== END 2023-10-06 18:33 | disposition home or self-care (01) ==
LOC: ED 15:28
DX: R42 Dizziness and giddiness (principal); I11.0 Hypertensive heart disease with heart failure; I50.9 Heart failure, unspecified; I25.810 Atherosclerosis of coronary artery bypass graft(s) without angina pectoris; E11.9 Type 2 diabetes mellitus without complications; Z95.1 Presence of aortocoronary bypass graft; Z86.73 Personal history of transient ischemic attack (TIA), and cerebral infarction without residual deficits; Z79.899 Other long term (current) drug therapy; Z79.84 Long term (current) use of oral hypoglycemic drugs; Z79.82 Long term (current) use of aspirin; Z79.02 Long term (current) use of antithrombotics/antiplatelets
CPT/HCPCS: 36415; 80053; 83690; 84484; 85025; 93005; 99283; 99284

== ENCOUNTER 2023-10-18 13:30 | Outpatient (CLI) | payer MEDICARE, OTHER ==
[2023-10-18 13:56] LABS: CALCIUM 9.2 mg/dL (8.5-10.3); POTASSIUM 4.1 mmol/L (3.5-4.5)
[2023-10-18 14:17] LABS: CREATININE,URINE 57.7 mg/dL; MICROALBUM/CREATININE RATIO,UR 97.1 ug/mg (<30.0); MICROALBUMIN,URINE 5.6 mg/dL
[2023-10-18 14:18] LABS: ESTIMATED AVERAGE GLUCOSE 151 mg/dL (70-100); HEMOGLOBIN A1c% 6.9 % (4.27-6.07)
== END 2023-10-18 13:31 | disposition home or self-care (01) ==
LOC: LAB 13:30
PROVIDERS: ATTEND Registered Nurse
DX: E11.319 Type 2 diabetes mellitus with unspecified diabetic retinopathy without macular edema (principal)
CPT/HCPCS: 36415; 80048; 82043; 82570; 83036

== ENCOUNTER 2024-01-09 12:19 | Outpatient (CLI) | payer MEDICARE, OTHER | END 2024-01-09 23:59 | disposition short-term general hospital (02) | LOC: EMS 12:19 | DX: R07.9 Chest pain, unspecified (principal); M79.602 Pain in left arm; M79.601 Pain in right arm | CPT/HCPCS: A0425; A0427 ==

== ENCOUNTER 2024-01-21 10:10 | Outpatient (CLI) | payer MEDICARE, OTHER ==
[2024-01-21 15:21] LABS: CALCIUM 9.4 mg/dL (8.5-10.3); CREATININE 1.2 mg/dL (0.6-1.3); POTASSIUM 4.2 mmol/L (3.5-4.5)
[2024-01-21 16:19] LABS: CREATININE,URINE 64.8 mg/dL; MICROALBUM/CREATININE RATIO,UR 29.3 ug/mg (<30.0); MICROALBUMIN,URINE 1.9 mg/dL
[2024-01-21 20:38] LABS: ESTIMATED AVERAGE GLUCOSE 154 mg/dL (70-100)
== END 2024-01-21 10:11 | disposition home or self-care (01) ==
LOC: LAB.S 10:10
PROVIDERS: ATTEND Registered Nurse
DX: E11.319 Type 2 diabetes mellitus with unspecified diabetic retinopathy without macular edema (principal)
CPT/HCPCS: 36415; 80048; 82043; 82570; 83036

== ENCOUNTER 2024-03-31 14:23 | Outpatient (CLI) | payer MEDICARE, OTHER | END 2024-03-31 14:24 | disposition home or self-care (01) | LOC: LAB 14:23 | PROVIDERS: ATTEND Physician Assistant | DX: R16.0 Hepatomegaly, not elsewhere classified (principal) | CPT/HCPCS: 36415; 82378; 86301 ==

== ENCOUNTER 2024-04-05 13:39 | Emergency (ER) | payer MEDICARE, OTHER ==
--- NOTE | 2024-04-05 13:51 | ED Physician Documentation ---
PD HPI ABD PAIN - Stated complaint Stated Complaint: RT SIDE PX - Chief complaint Chief Complaint: Back Pain - History obtained from History obtained from: Patient, Family (spouse) - History of Present Illness Timing - onset: How many days ago (3 days of initially right flank pain that has increased in severity and is wrapping around to right abd. Tender to palpation, hurts with movement. Not worse with eating.) Timing - details: Gradual onset, Still present Quality: Aching, Pain Radiation: Right flank (initiated in right flank and is wrapping around to right mid to upper abd. hurts for palpation and movement.) Improved by: Laying still Worsened by: Moving, Palpation. No: Breathing Associated symptoms: Nausea. No: Fever, Vomiting, Diarrhea, Constipation Recently seen: Clinic (seen at Oncology and had radioactive beads placed by IR into hepatic cappillaries (procedure called Y90 Yttrium radioembolization) 3- 4 weeks ago.) Review of Systems Constitutional: denies: Fever, Chills GI: reports: Nausea. denies: Vomiting, Constipation, Diarrhea : denies: Dysuria, Frequency Skin: denies: Rash, Lesions PD PAST MEDICAL HISTORY - Past Medical History Cardiovascular: Congestive heart failure, Hypertension, Coronary artery disease, Other Respiratory: Sleep apnea, CPAP use Neuro: CVA Endocrine/Autoimmune: Type 2 diabetes GI: GERD, Esophageal varices, Cirrhosis, Other (liver cancer and sees Oncology, just referred into [facility] that he has appt for next week. ) : Nocturia, Frequency, Other HEENT: Chronic vision loss, Chronic hearing loss Psych: Depression Musculoskeletal: Osteoarthritis, Chronic back pain Derm: Other - Past Surgical History Past Surgical History: Yes General: Cholecystectomy, Hiatal hernia repair, Other Ortho: Rotator cuff repair, Carpal Tunnel surgery, Other Cardiovascular: CABG - Present Medications Home Medications: Ambulatory Orders Medication Instructions Recorded Confirmed Albuterol Sulfate [Proair 2 puffs IH Q6HR PRN 03/05/23 04/05/24 Respiclick] Ascorbic Acid [Vitamin C] 250 mg PO DAILY 03/05/23 04/05/24 Cyanocobalamin (Vitamin B-12) 1,000 mcg PO DAILY 03/05/23 04/05/24 [Vitamin B-12] Finasteride [Proscar] 5 mg PO DAILY 03/05/23 04/05/24 Fluticasone [Flonase] 2 sprays CHAPIS DAILY 03/05/23 04/05/24 Nitroglycerin [Nitrostat] 0.4 mg SL [id number] 03/05/23 04/05/24 buPROPion HCL [Wellbutrin Xl] 300 mg PO DAILY 03/05/23 04/05/24 carvediloL [Coreg] 3.125 mg PO QPM 03/05/23 04/05/24 metFORMIN [Glucophage] 500 mg PO DAILY 03/05/23 04/05/24 Aspirin [Vazalore] 81 mg PO DAILY 04/13/23 04/05/24 Atorvastatin Calcium [Lipitor] 80 mg PO HS 04/28/23 04/05/24 Clopidogrel [Plavix] 75 mg PO DAILY 04/28/23 04/05/24 Pantoprazole Sodium 40 mg PO QDAC 04/28/23 04/05/24 Cetirizine [ZyrTEC] 10 mg PO DAILY 05/30/23 04/05/24 Tamsulosin HCl [Flomax] 1 tab PO DAILY 06/18/23 04/05/24 Calcium Carbonate [Calcium] 1 tab PO DAILY 04/05/24 04/05/24 Clobetasol 0.05% Oint [Temovate 1 applic TOP PRN PRN 04/05/24 04/05/24 0.05% Oint] Cyclobenzaprine [Flexeril] 5 mg PO PRN PRN 04/05/24 04/05/24 Docusate Sodium 100Mg Capsule 100 mg PO DAILY #20 cap 04/05/24 [Colace 100Mg Capsule] Empagliflozin [Jardiance] 1 tab PO DAILY 04/05/24 04/05/24 Ezetimibe [Zetia] 1 tab PO DAILY 04/05/24 04/05/24 Furosemide [Lasix] 1 tab PO DAILY 04/05/24 04/05/24 Isosorbide Mononitrate ER [Imdur] 1 tab PO DAILY 04/05/24 04/05/24 Ketoconazole 2% Cream [Nizoral 2% 1 applic TOP DAILY 04/05/24 04/05/24 Cream] Losartan [Cozaar] 25 mg PO DAILY 04/05/24 04/05/24 Ondansetron Odt [Zofran] 4 mg TL Q6H PRN #10 tablet 04/05/24 Oxycodone HCl/Acetaminophen 1 each PO Q6H PRN #20 tablet 04/05/24 [Percocet 5-325 mg Tablet] valACYclovir [Valtrex] 1,000 mg PO TID 5 Days #30 tablet 04/05/24 - Allergies Allergies/Adverse Reactions: Allergies Allergy/AdvReac Type Severity Reaction Status Date / Time No Known Drug Allergies Allergy Verified 04/05/24 13:49 - Social History Does the pt smoke?: No Smoking Status: Never smoker Does the pt drink ETOH?: No Does the pt have substance abuse?: No - Immunizations Immunizations are current?: Yes - POLST Patient has POLST: No PD ED PE NORMAL - Vitals Vital signs reviewed: Yes - General General: Alert and oriented X 3, Well developed/nourished, Other (appears in significant pain. ) - Cardiac Cardiac: RRR, No murmur - Respiratory Respiratory: No respiratory distress, Clear bilaterally - Abdomen Abdomen: Soft, Non distended, Other (tender in mid thoracic to right flank area and has band of tenderness around ti RUQ/mid abd area. Not tender left side. There is small patch of petechial/small red spots rash lateral abd in this band. Consider early shingles. ) Results - Vitals Vitals: Vital Signs - 24 hr 04/05/24 04/05/24 04/05/24 13:41 15:49 17:47 Temperature 36.4 C L Heart Rate 80 67 78 Respiratory 17 14 18 Rate Blood Pressure 150/33 H 142/86 H O2 Saturation 99 94 98 Oxygen O2 Source Room air - Labs Labs: Laboratory Tests 04/05/24 04/05/24 04/05/24 13:58 13:58 14:30 WBC 9.5 RBC 3.89 L Hgb 10.1 L Hct 33.6 L MCV 86.4 MCH 26.0 L MCHC 30.1 L RDW 20.7 H Plt Count 254 MPV 10.5 Neut # (Auto) 7.6 H Lymph # (Auto) 0.6 L Berrien # (Auto) 1.1 H Eos # (Auto) 0.3 Baso # (Auto) 0.1 Absolute Nucleated RBC 0.00 Nucleated RBC % 0.0 Manual Slide Review Indicated RBC Morph Micro Appear 4+ ANISOCYTOSIS Sodium 136 Potassium 4.1 Chloride 103 Carbon Dioxide 29 Anion Gap 4.0 L BUN 16 Creatinine 0.8 Estimated GFR (MDRD) 92 Glucose 101 Calcium 9.1 Total Bilirubin 0.7 AST 43 H ALT 23 Alkaline Phosphatase 228 H Total Protein 6.8 Albumin 3.4 Globulin 3.4 Albumin/Globulin Ratio 1.0 Lipase 14 Urine Color YELLOW Urine Clarity CLEAR Urine pH 6.0 Ur Specific Merrill 1.020 Urine Protein NEGATIVE Urine Glucose (UA) >=1000 H Urine Ketones NEGATIVE Urine Occult Blood TRACE-LYSE Urine Nitrite NEGATIVE Urine Bilirubin NEGATIVE Urine Urobilinogen 1 (NORMAL) Ur Leukocyte Esterase NEGATIVE Ur Microscopic Review NOT INDICATED Urine Culture Comments NOT INDICATED PD Medical Decision Making - ED course Complexity details: reviewed results (possible/likely splenic infarct but looks like advancement of finding from prior CT. Currently with apparent necrotic node periportal and inflammatory enhancement around liver tumors. CBD appears okay. ), d/w employee relations consultant (I talked with Oncology flotation tender for [employer] - states there can be inflammation and enhancement of the tumors and lymph nodes with necrosis (the intent of the Y90 beads) and cause pain. That may be the cause of his pain and treatment would be symptomatic. ) Reviewed Lab Results: no inflammation or increased LTs. Mild elevation Alk Phos. he is baseline anemic. Normal WBC. UA without infection CT showing no stones. Other findings discussed above. He does have tenderness of skin in dermatomal area and pain pattern is also. Faint early pebbly patch of rash laterally. Consider early shingles (he may have been scratching the area and causing the small red spots, per his ; pt not aware of scratching there). ED course: he is having much improvement in pain with IV meds of toradol and dilaudid. Given IV fluids as well. Departure - Departure Disposition: 01 Home, Self Care Clinical Impression: Acute right flank pain, Liver cancer, Splenic infarct Condition: Stable Record reviewed to determine appropriate education?: Yes Instructions: ED Flank Pain Uncertain Cause Follow-Up: Tricia Jackson ARNP [Primary Care Provider] - Medicine [Provider Group] Prescriptions: Docusate Sodium 100Mg Capsule [Colace 100Mg Capsule] 100 mg PO DAILY #20 cap Oxycodone HCl/Acetaminophen [Percocet 5-325 mg Tablet] 1 each PO Q6H PRN #20 tablet PRN Reason: pain valACYclovir [Valtrex] 1,000 mg PO TID 5 Days #30 tablet Ondansetron Odt [Zofran] 4 mg TL Q6H PRN #10 tablet PRN Reason: Nausea / Vomiting Comments: Your CT scan shows no new abnormalities of your liver cancer. Compared to the most recent imaging we have from May 29, 2023, the lesions do appear to have increased in size. However that may not be different in size compared to your more recent imaging at the . I gave the report copy to you and will talk with the on-call oncology when they call back to pass on the information. Likely incidental finding is a small area of decreased density in the spleen consistent with a small infarct at some point in the past. Comparing to last S eptember CT scan, it did look somewhat present but not as distinct at that time. So it does not look like a new process. You are also not hurting in that area. You do have some lymph nodes around the liver to that appear to be "necrotic" meaning appearing dying. This may be actually be an appropriate response to the Y90 procedure. I am curious at the distribution of the pain that you are having along with some tenderness along the outside in a band and the very faint red spots on your skin. I think this may more likely represent an early shingles outbreak. I would like to just treat this with an antiviral presumptively. I would have you take some Tylenol 500 to 650 mg regularly 4 times a day for the next several days to week. Add oxycodone/acetaminophen every 6 hours if needed for pain. Also valacyclovir 1000 mg 3 times a day for the next 5 days which is an antiviral medicine. Follow-up with the [facility] oncology next week as planned. I will call talk with the oncology on-call when they do call back this afternoon/evening to advise them of our findings. Return to the ER if needed. Continue your other usual medicines. Add a stool softener daily so you do not get constipated from the medication. I am prescribing a short course of narcotic pain medication for you. These are potentially dangerous and addictive medications that should be used carefully. These medications may constipate you. Take an nuqu-iic-mydisti stool softener such as docusate twice daily with plenty of water while taking these medications. If you go 24 hours without a bowel movement, take [id number] MiraLAX, per package instructions. Do not drink or drive while taking these medications. If you received narcotic or sedating medications while in the emergency department do not drive for 24 hours. Store this medication in a safe, secure place and out of reach of children. It is a violation of federal law to give or sell this medication to another person or to use in a manner other than prescribed. The ED will not refill narcotic prescriptions, including prescriptions lost or stolen. You can dispose of unwanted medications at the [facility]'s office or at several pharmacies such as [facility]. Discharge Date/Time: 04/05/24 17:47
[2024-04-05 14:05] LABS: BASOPHILS # (AUTO) 0.1 10^3/uL (0.0-0.1); BASOPHILS % (AUTO) 0.5 %; EOSINOPHILS # (AUTO) 0.3 10^3/uL (0.0-0.7); EOSINOPHILS % (AUTO) 2.8 %; HCT - HEMATOCRIT 33.6 % (42.0-52.0); HGB - HEMOGLOBIN 10.1 g/dL (14.0-18.0); LYMPHOCYTES # (AUTO) 0.6 10^3/uL (1.5-3.5); LYMPHOCYTES % (AUTO) 5.8 %; MEAN CORPUSCULAR HGB CONC 30.1 g/dL (32.0-36.0); MEAN CORPUSCULAR VOLUME 86.4 fL (80.0-94.0); MEAN PLATELET VOLUME 10.5 fL (7.4-11.4); MONOCYTES # (AUTO) 1.1 10^3/uL (0.0-1.0); MONOCYTES % (AUTO) 11.1 %; NEUTROPHILS # (AUTO) 7.6 10^3/uL (1.5-6.6); NEUTROPHILS % (AUTO) 79.5 %; PLT - PLATELET COUNT 254 10^3/uL (130-450); RED BLOOD COUNT 3.89 10^6/uL (4.70-6.10); RED CELL DISTRIBUTION WIDTH 20.7 % (12.0-15.0); WHITE BLOOD COUNT 9.5 x10^3/uL (4.8-10.8)
[2024-04-05 14:14] LABS: RBC MORPHOLOGY (MULTIPLE) 4+ ANISOCYTOSIS (NORMAL); SLIDE REVIEW? Indicated
[2024-04-05 14:26] LABS: ALBUMIN 3.4 g/dL (3.2-5.5); BILIRUBIN,TOTAL 0.7 mg/dL (0.2-1.0); CALCIUM 9.1 mg/dL (8.5-10.3); CREATININE 0.8 mg/dL (0.6-1.3); POTASSIUM 4.1 mmol/L (3.5-4.5); TOTAL PROTEIN 6.8 g/dL (6.4-8.9)
[2024-04-05 14:38] LABS: BILIRUBIN,URINE NEGATIVE (NEGATIVE); CLARITY,URINE CLEAR (CLEAR); GLUCOSE, URINE (UA) >=1000 mg/dL (NEGATIVE); KETONES,URINE (UA) NEGATIVE (NEGATIVE); LEUKOCYTE ESTERASE, URINE NEGATIVE (NEGATIVE); NITRITE,URINE NEGATIVE (NEGATIVE); OCCULT BLOOD,URINE TRACE-LYSE (NEGATIVE); PROTEIN,URINE NEGATIVE (NEGATIVE); UROBILINOGEN,URINE 1 (NORMAL) E.U./dL (NORMAL)
[2024-04-05] MEDS: HYDROmorphone 1 MG/ML CARPUJECT IVP STA (14:59)
[2024-04-05] MEDS: ONDANSETRON 4 MG/2 ML VIAL IVP STA (14:59)
[2024-04-05] MEDS: KETOROLAC 15 MG/ML VIAL IVP STA (14:59)
[2024-04-05] MEDS ORDERED: iohexoL-300 100 ML VIAL ONE (15:00)
[2024-04-05] MEDS: iohexoL-300 100 ML VIAL IVP ONE (16:06)
--- NOTE | 2024-04-05 16:59 | CT Report ---
PROCEDURE: Abdomen/Pelvis W INDICATIONS: right flank to upper abd pain CONTRAST: Omni 300 100ml TECHNIQUE: After the administration of intravenous contrast, a CT scan of the abdomen and pelvis was performed. Images were recorded and evaluated at appropriate window settings. Reformats: coronal and sagittal. F or radiation dose reduction, the following was used: automated exposure control, adjustment of mA and /or kV according to patient size. COMPARISON: CT 05/30/2023 FINDINGS: Image quality: Diagnostic. Lower chest: Unremarkable. Liver: Interval growth of the rim-enhancing lesions in the liver dome and central liver. For instance , a 4.7 cm rim-enhancing lesion at the liver dome is new from prior (series 2, image 15), and the seg ment 8 lesion measures 5.6 m, previously 3.9 cm Gallbladder: Surgically absent. Biliary tree: No intrahepatic or extrahepatic dilation, accounting for age. Spleen: Wedge-shaped region of hypoattenuation present, concerning for infarct. Pancreas: No pancreatic ductal dilation. Adrenals: No adrenal nodule. Kidneys and ureters: No hydronephrosis. No renal cystic lesion which requires follow up. No solid mas s. Stomach, bowel and peritoneum: No gastric or small bowel dilation. No abnormal wall thickening. Small volume ascites. Prior gastric surgery. Lymph nodes: Central necrotic mona hepatis nodes, largest measuring 2.7 cm short axis (series 2, jessica ge 39). Vessels: No infrarenal aortic aneurysm. Patent portal vein. PELVIS Reproductive organs: Unremarkable. Bladder: No abnormal wall thickening, accounting for underdistention. Pelvic lymph nodes: No pelvic adenopathy by size criteria. Bones: No aggressive osseous abnormality. Other: No significant ventral or inguinal hernia. IMPRESSION: Wedge-shaped region of hypoattenuation in the spleen, concerning for infarct. Growing and new rim-enhancing masses of the liver, concerning for disease progression. 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 Reviewed by: Farooq Smith MD on 04/05/2024 4:58 PM PDT Approved by: Farooq Smith MD on 04/05/2024 4:58 PM PDT Station ID: [id number]
[2024-04-05] MEDS: oxyCODONE 5 MG TABLET PO STA (17:42)
[2024-04-05] MEDS: ACETAMINOPHEN 500 MG TABLET PO STA (17:42)
[2024-04-05] MEDS: valACYclovir 500 MG TABLET PO STA (17:42)
[2024-04-05 17:56] VITALS: BP 142/86; O2SAT 98
== END 2024-04-05 17:47 | disposition home or self-care (01) ==
LOC: ED 13:39
DX: R10.31 Right lower quadrant pain (principal); C22.9 Malignant neoplasm of liver, not specified as primary or secondary; D73.5 Infarction of spleen; I11.0 Hypertensive heart disease with heart failure; I50.9 Heart failure, unspecified; I25.10 Atherosclerotic heart disease of native coronary artery without angina pectoris; E11.9 Type 2 diabetes mellitus without complications; Z86.73 Personal history of transient ischemic attack (TIA), and cerebral infarction without residual deficits; Z95.1 Presence of aortocoronary bypass graft; Z79.84 Long term (current) use of oral hypoglycemic drugs; Z79.899 Other long term (current) drug therapy
CPT/HCPCS: 36415; 74177; 80053; 81003; 83690; 85025; 96374; 96375; 99284; 99285; A9270; J1170; Q9967; 81001; 87086

== ENCOUNTER 2024-04-20 12:43 | Outpatient (CLI) | payer MEDICARE, OTHER ==
--- NOTE | 2024-04-20 13:26 | Sleep Patient Instructions ---
Sleep Center Visit Summary - Patient Visit Information Reason for Visit: Annual follow-up - Patient Instructions Additional Instructions: You will continue with CPAP therapy with pressure changed to 19-20 cmH2O. Please let us know if the pressure change is uncomfortable and we can make further adjustments of the pressure. A supply prescription will be updated with your DME supplier. We encourage you to continue to try to lose weight. Please follow up with the sleep care office in 1 year. - Clinic Information Contact: [facility] [address] [place] [id number] [email or web address] T: [phone]
--- NOTE | 2024-04-20 13:29 | SLEEP CARE CONSULTATION ---
Information from patient questionnaire entered by Katherine Harding. I have reviewed and concur with the information entered by Katherine Harding. This document represents the service I personally performed and the decisions made by me, Anu Preciado ARNP. History of Present Illness Service Date and Time: 04/20/2024 1243 Previous diagnosis: Moderate, Obstructive Sleep Apnea-Hypopnea Syndrome AHI: 15.0 (in 2017) Reason for follow up: other (LAST SEEN 04/2023) Accompanied by: Spouse (Carlee) Equipment type: CPAP (ELIZABETH Dreamstation 2) Equipment obtained from: Other ([facility]; getting supplies as needed) Mask style: Nasal (over the nose) Backup mask available: Yes (old mask) Prior sleep studies: Yes Year and Where: 2016 - [facility]; 1994() and 2001 - [facility] additional information: FANI CH was diagnosed to have moderate, AHI 15, obstructive sleep apnea- hypopnea syndrome and returned today for CPAP therapy annual follow-up. Sleep Study - Results Prior sleep studies: Yes Year and Where: 2016 - [email or web address]; 1994() and 2001 - [facility] in [place], [place] CPAP Compliance Data - Data Reviewed with Patient Average duration of nightly device use: 9 HRS 10 MINS 1 SEC Compliance rate %: 96.2 (04/19/23-04/17/24; 359/365 days used) Current pressure setting (cmH2O): 16-20 Average residual AHI: 9.5 (RERA 0.2) Central apnea: 2.9 Obstructive apnea: 4.7 Hypopnea: 1.9 Average large leak: 25 secs Subjective Patient concerns: reports: mask discomfort (mask making abrasions on bridge of nose), other (SNORING WHILE USING MASK). denies: aerophagia, air blowing in eyes, mask leak noise, condensation in mask/hose, nasal congestion, dry mouth, nose, throat, epistaxis Observed to snore while using device: Yes (only when mask gets moved up on face) Current pressure setting perceived as: comfortable On therapy, patient: reports: sleeping better, awakening more refreshed, being more awake and alert during the day, more rested overall, other (taking more naps since his cancer treatment). denies: drowsiness while driving Initial Edwards Sleepiness Scale score: 17 (in 2012) Current Edwards Sleepiness Scale score: 15 (04/20/24) Allergies and Home Medications Known drug allergies: No Drug allergies reviewed: Yes Home medication list reviewed: Yes (as updated in EMR) Allergy and home medication list: Allergies No Known Drug Allergies Allergy (Verified 04/20/24 12:50) Review of Systems Review of systems same as previous: No (LIVER CANCER 3 NEW HEART STENTS) Physical Exam Vital signs obtained and entered by: KATHERINE Delaney MA Blood Pressure: 92/58 (LEFT ARM) Cuff size: regular Heart Rate: 74 O2 Saturation: 85 Height: 5 ft 7 in Weight: 171 lb 12.8 oz Weight change since last visit: 13 lb loss Body Mass Index: 26.9 BMI Classification: Overweight Impression and Plan 1. Obstructive Sleep Apnea-Hypopnea Syndrome, moderate, with good treatment compliance and fair apnea control with elevated residual AHI. On CPAP therapy, the patient has better sleep quality and is more rested overall. His residual AHI is elevated and he is taking more naps. He was also diagnosed with liver cancer 3 months ago and has been through treatment which caused him to be very tired. The patients pressure will be changed to autoCPAP 19-20 cmH20 for elevation of residual AHI. Patient advised to contact me if pressure change is uncomfortable so that it can be adjusted. Goals for apnea control discussed. Patient's apnea severity and rationale for treatment to reduce apnea, improve sleep quality and reduce cardiovascular and cerebrovascular events was reviewed. I also reviewed the benefit of consistent device use of CPAP for hypertension, cardiac disease, diabetes. 2. Overweight, unspecified. Currently patients BMI is 26.9. He has lost weight. Obesity increases the risk of apnea, CPAP pressure requirements and overall health risks especially cardiovascular and diabetes. Thus patient is advised to continue to try to lose weight. * Change auto CPAP pressure to 19-20 cmH2O * Update supply prescription * Notify me if snoring with mask or feeling that the pressure is too much or too little * Attempt to lose weight * Call this office if any problems using CPAP * Return for follow up in 12 months, or sooner if concerns arise Adjust device pressure to (cmH2O): 19-20 Counseling Topics: Spare mask, Weight loss health impact Prescriptions: Device supplies Follow up with Sleep Care in: 1 year Visit Type: In Office Time Spent with Patient (minutes): 25 Provider Statement: I spent 100% of the Face to Face Visit with the patient with greater than 50% spent counseling the patient and coordination of care.
[2024-04-20 13:35] VITALS: BP 92/58; O2SAT 85
== END 2024-04-20 12:44 | disposition home or self-care (01) ==
LOC: SC 12:43
PROVIDERS: ATTEND Nurse Practitioner Family
DX: G47.33 Obstructive sleep apnea (adult) (pediatric) (principal); E66.3 Overweight; Z68.26 Body mass index [BMI] 26.0-26.9, adult
CPT/HCPCS: 99213; G0463; 99212

== ENCOUNTER 2024-05-09 00:10 | Outpatient (CLI) | payer MEDICARE, OTHER | END 2024-05-09 00:11 | disposition EMS.NT | LOC: EMS 00:10 | DX: R50.9 Fever, unspecified (principal) ==

== ENCOUNTER 2024-05-10 10:01 | Outpatient (CLI) | payer MEDICARE, OTHER ==
[2024-05-10 10:17] LABS: BASOPHILS # (AUTO) 0.1 10^3/uL (0.0-0.1); BASOPHILS % (AUTO) 0.3 %; EOSINOPHILS # (AUTO) 0.1 10^3/uL (0.0-0.7); EOSINOPHILS % (AUTO) 0.6 %; HCT - HEMATOCRIT 33.3 % (42.0-52.0); HGB - HEMOGLOBIN 10.2 g/dL (14.0-18.0); LYMPHOCYTES # (AUTO) 0.6 10^3/uL (1.5-3.5); LYMPHOCYTES % (AUTO) 3.5 %; MEAN CORPUSCULAR HEMOGLOBIN 25.4 pg (27.0-31.0); MEAN CORPUSCULAR HGB CONC 30.6 g/dL (32.0-36.0); MEAN CORPUSCULAR VOLUME 82.8 fL (80.0-94.0); MEAN PLATELET VOLUME 10.8 fL (7.4-11.4); MONOCYTES # (AUTO) 1.5 10^3/uL (0.0-1.0); MONOCYTES % (AUTO) 9.4 %; NEUTROPHILS % (AUTO) 85.5 %; PLT - PLATELET COUNT 293 10^3/uL (130-450); RED BLOOD COUNT 4.02 10^6/uL (4.70-6.10); RED CELL DISTRIBUTION WIDTH 19.2 % (12.0-15.0); WHITE BLOOD COUNT 16.3 x10^3/uL (4.8-10.8)
[2024-05-10 10:33] LABS: ALBUMIN 2.9 g/dL (3.2-5.5); ALBUMIN/GLOBULIN RATIO 0.8 (1.0-2.2); ALKALINE PHOSPHATASE 244 IU/L (42-121); ALT ALANINE AMINOTRANSFERASE 23 IU/L (10-60); AST ASPARTATE AMINOTRANSFERASE 46 IU/L (10-42); BILIRUBIN,TOTAL 0.8 mg/dL (0.2-1.0); BUN - BLOOD UREA NITROGEN 18 mg/dL (6-20); CALCIUM 8.8 mg/dL (8.5-10.3); CARBON DIOXIDE - CO2 30 mmol/L (21-32); CHLORIDE 101 mmol/L (101-111); CHOL/HDL RATIO 2.4 (<5.0); CHOLESTEROL 51 mg/dL; GFR - MDRD 71 (>89); GLUCOSE 129 mg/dL (74-104); HDL CHOLESTEROL 21 mg/dL; LDL CHOLESTEROL,CALCULATED 14 mg/dL; LDL/HDL RATIO 0.7 (<3.6); POTASSIUM 4.3 mmol/L (3.5-4.5); SODIUM 136 mmol/L (135-145); TOTAL PROTEIN 6.5 g/dL (6.4-8.9); TRIGLYCERIDES 79 mg/dL; VLDL CHOLESTEROL 16 mg/dL
[2024-05-10 10:35] LABS: CREATININE,URINE 108.4 mg/dL; MICROALBUM/CREATININE RATIO,UR 18.5 ug/mg (<30.0)
[2024-05-10 10:44] LABS: THYROID STIMULATING HORMONE 2.54 uIU/mL (0.34-5.60)
[2024-05-10 13:56] LABS: ESTIMATED AVERAGE GLUCOSE 131 mg/dL (70-100); HEMOGLOBIN A1c% 6.2 % (4.27-6.07)
== END 2024-05-10 10:02 | disposition home or self-care (01) ==
LOC: LAB 10:01
PROVIDERS: ATTEND Registered Nurse
DX: E11.319 Type 2 diabetes mellitus with unspecified diabetic retinopathy without macular edema (principal); Z13.228 Encounter for screening for other metabolic disorders; Z13.220 Encounter for screening for lipoid disorders; Z13.29 Encounter for screening for other suspected endocrine disorder; Z13.0 Encounter for screening for diseases of the blood and blood-forming organs and certain disorders involving the immune mechanism
CPT/HCPCS: 36415; 80053; 80061; 82043; 82570; 83036; 83721; 84443; 85025

== ENCOUNTER 2024-05-24 14:18 | Outpatient (CLI) | payer MEDICARE, OTHER ==
[2024-05-24 14:45] LABS: BASOPHILS % (AUTO) 0.3 %; EOSINOPHILS # (AUTO) 0.1 10^3/uL (0.0-0.7); EOSINOPHILS % (AUTO) 0.8 %; HCT - HEMATOCRIT 31.5 % (42.0-52.0); HGB - HEMOGLOBIN 9.4 g/dL (14.0-18.0); LYMPHOCYTES # (AUTO) 0.4 10^3/uL (1.5-3.5); LYMPHOCYTES % (AUTO) 2.7 %; MEAN CORPUSCULAR HEMOGLOBIN 24.5 pg (27.0-31.0); MEAN CORPUSCULAR HGB CONC 29.8 g/dL (32.0-36.0); MEAN PLATELET VOLUME 10.6 fL (7.4-11.4); MONOCYTES # (AUTO) 0.9 10^3/uL (0.0-1.0); MONOCYTES % (AUTO) 6.6 %; NEUTROPHILS # (AUTO) 11.6 10^3/uL (1.5-6.6); PLT - PLATELET COUNT 268 10^3/uL (130-450); RED BLOOD COUNT 3.84 10^6/uL (4.70-6.10); RED CELL DISTRIBUTION WIDTH 18.8 % (12.0-15.0)
[2024-05-24 14:54] LABS: INR 1.6 (0.8-1.2); PT - PROTHROMBIN TIME 17.1 secs (9.9-12.6)
[2024-05-24 14:59] LABS: ALBUMIN 2.8 g/dL (3.2-5.5); ALBUMIN/GLOBULIN RATIO 0.8 (1.0-2.2); BILIRUBIN,TOTAL 0.6 mg/dL (0.2-1.0); CALCIUM 8.8 mg/dL (8.5-10.3); CREATININE 0.8 mg/dL (0.6-1.3); POTASSIUM 3.8 mmol/L (3.5-4.5); TOTAL PROTEIN 6.1 g/dL (6.4-8.9)
== END 2024-05-24 14:19 | disposition home or self-care (01) ==
LOC: LAB 14:18
PROVIDERS: ATTEND Radiology Radiation Oncology
DX: C77.2 Secondary and unspecified malignant neoplasm of intra-abdominal lymph nodes (principal)
CPT/HCPCS: 36415; 80053; 82105; 85025; 85610

== ENCOUNTER 2024-05-29 09:29 | Emergency (ER) | payer MEDICARE, OTHER ==
[2024-05-29 10:14] LABS: BASOPHILS # (AUTO) 0.1 10^3/uL (0.0-0.1); BASOPHILS % (AUTO) 0.5 %; EOSINOPHILS # (AUTO) 0.1 10^3/uL (0.0-0.7); EOSINOPHILS % (AUTO) 0.9 %; HCT - HEMATOCRIT 31.3 % (42.0-52.0); HGB - HEMOGLOBIN 9.3 g/dL (14.0-18.0); LYMPHOCYTES # (AUTO) 0.3 10^3/uL (1.5-3.5); LYMPHOCYTES % (AUTO) 2.7 %; MEAN CORPUSCULAR HEMOGLOBIN 24.3 pg (27.0-31.0); MEAN CORPUSCULAR HGB CONC 29.7 g/dL (32.0-36.0); MEAN CORPUSCULAR VOLUME 81.9 fL (80.0-94.0); MEAN PLATELET VOLUME 10.3 fL (7.4-11.4); MONOCYTES # (AUTO) 0.9 10^3/uL (0.0-1.0); MONOCYTES % (AUTO) 7.6 %; NEUTROPHILS # (AUTO) 10.3 10^3/uL (1.5-6.6); NEUTROPHILS % (AUTO) 87.7 %; PLT - PLATELET COUNT 234 10^3/uL (130-450); RED BLOOD COUNT 3.82 10^6/uL (4.70-6.10); RED CELL DISTRIBUTION WIDTH 18.9 % (12.0-15.0); WHITE BLOOD COUNT 11.7 x10^3/uL (4.8-10.8)
[2024-05-29 10:30] LABS: ALBUMIN 2.6 g/dL (3.2-5.5); ALBUMIN/GLOBULIN RATIO 0.8 (1.0-2.2); ALKALINE PHOSPHATASE 303 IU/L (42-121); ALT ALANINE AMINOTRANSFERASE 11 IU/L (10-60); AST ASPARTATE AMINOTRANSFERASE 28 IU/L (10-42); BILIRUBIN,TOTAL 0.7 mg/dL (0.2-1.0); BUN - BLOOD UREA NITROGEN 19 mg/dL (6-20); CARBON DIOXIDE - CO2 28 mmol/L (21-32); CHLORIDE 102 mmol/L (101-111); CK- CREATINE KINASE 16 IU/L (30-223); CREATININE 0.9 mg/dL (0.6-1.3); GFR - MDRD 80 (>89); GLUCOSE 113 mg/dL (74-104); MAGNESIUM 1.7 mg/dL (1.7-2.3); PHOSPHORUS 2.7 mg/dL (2.5-5.0); POTASSIUM 4.3 mmol/L (3.5-4.5); SODIUM 136 mmol/L (135-145); TOTAL PROTEIN 5.7 g/dL (6.4-8.9)
[2024-05-29 10:33] LABS: LIPASE < 10 U/L (11-82)
[2024-05-29] MEDS: FAMOTIDINE 20 MG/2 ML VIAL IVP STA ×2 (12:03→12:06)
[2024-05-29] MEDS: SODIUM CHLORIDE 0.9% 1,000 ML IV STA ×3 (12:03→15:54)
[2024-05-29] MEDS: MAG HYDROX/AL HYDROX/SIMETH 30 ML UDC PO STA ×2 (12:03→12:07)
[2024-05-29] MEDS: LIDOCAINE VISCOUS 2% 15 ML UDC MM STA ×2 (12:03→12:06)
--- NOTE | 2024-05-29 15:36 | ED Physician Documentation ---
PD HPI NVD - Stated complaint Stated Complaint: DEHYDRATION,POST RADIATION - Chief complaint Chief Complaint: General - History obtained from History obtained from: Patient, Family - History of Present Illness Timing - onset: How many weeks ago (1) Timing - duration: Weeks (1) Timing - details: Gradual onset, Still present Associated symptoms: Abdominal pain (some pain at epigastric area and also RUQ to the area that he received the RT. But more having pain in esophageal area and throat with swallowing, leading to poor intake.). No: Fever Contributing factors: Other (radiation therapy for 5 days in a row last week, with poor PO intake develop.). No: Sick contact Worsened by: Eating. No: Breathing Review of Systems Constitutional: reports: Fatigue. denies: Fever, Chills Nose: denies: Rhinorrhea / runny nose, Congestion Throat: reports: Sore throat Respiratory: denies: Cough PD PAST MEDICAL HISTORY - Past Medical History Cardiovascular: Congestive heart failure, Hypertension, Coronary artery disease, Other Respiratory: Sleep apnea, CPAP use Neuro: CVA Endocrine/Autoimmune: Type 2 diabetes GI: GERD, Esophageal varices, Cirrhosis, Other : Nocturia, Frequency, Other HEENT: Chronic vision loss, Chronic hearing loss Psych: Depression Musculoskeletal: Osteoarthritis, Chronic back pain Derm: Other - Past Surgical History Past Surgical History: Yes General: Cholecystectomy, Hiatal hernia repair, Other Ortho: Rotator cuff repair, Carpal Tunnel surgery, Other Cardiovascular: CABG - Present Medications Home Medications: Ambulatory Orders Medication Instructions Recorded Confirmed Albuterol Sulfate [Proair 2 puffs IH Q6HR PRN 03/05/23 04/20/24 Respiclick] Ascorbic Acid [Vitamin C] 250 mg PO DAILY 03/05/23 04/20/24 Cyanocobalamin (Vitamin B-12) 1,000 mcg PO DAILY 03/05/23 04/20/24 [Vitamin B-12] Finasteride [Proscar] 5 mg PO DAILY 03/05/23 04/20/24 Fluticasone [Flonase] 2 sprays CHAPIS DAILY 03/05/23 04/20/24 Nitroglycerin [Nitrostat] 0.4 mg SL [id number] 03/05/23 04/20/24 buPROPion HCL [Wellbutrin Xl] 300 mg PO DAILY 03/05/23 04/20/24 carvediloL [Coreg] 3.125 mg PO QPM 03/05/23 04/20/24 metFORMIN [Glucophage] 500 mg PO DAILY 03/05/23 04/20/24 Aspirin [Vazalore] 81 mg PO DAILY 04/13/23 04/20/24 Atorvastatin Calcium [Lipitor] 80 mg PO HS 04/28/23 04/20/24 Clopidogrel [Plavix] 75 mg PO DAILY 04/28/23 04/20/24 Pantoprazole Sodium 40 mg PO QDAC 04/28/23 04/20/24 Cetirizine [ZyrTEC] 10 mg PO DAILY 05/30/23 04/20/24 Calcium Carbonate [Calcium] 1 tab PO DAILY 04/05/24 04/20/24 Clobetasol 0.05% Oint [Temovate 1 applic TOP PRN PRN 04/05/24 04/20/24 0.05% Oint] Cyclobenzaprine [Flexeril] 5 mg PO PRN PRN 04/05/24 04/20/24 Docusate Sodium 100Mg Capsule 100 mg PO DAILY #20 cap 04/05/24 04/20/24 [Colace 100Mg Capsule] Empagliflozin [Jardiance] 1 tab PO DAILY 04/05/24 04/20/24 Ezetimibe [Zetia] 1 tab PO DAILY 04/05/24 04/20/24 Furosemide [Lasix] 1 tab PO DAILY 04/05/24 04/20/24 Ketoconazole 2% Cream [Nizoral 2% 1 applic TOP DAILY 04/05/24 04/20/24 Cream] Losartan [Cozaar] 25 mg PO DAILY 04/05/24 04/20/24 Ondansetron Odt [Zofran] 4 mg TL Q6H PRN #10 tablet 04/05/24 04/20/24 Oxycodone HCl/Acetaminophen 1 each PO Q6H PRN #20 tablet 04/05/24 04/20/24 [Percocet 5-325 mg Tablet] Fluconazole [Diflucan] 100 mg PO Q2D #2 tablet 05/29/24 Sucralfate [Carafate] 1 gm PO TID 5 Days #150 ml 05/29/24 diphenhydrAMINE ELIXIR [Benadryl 12.5 mg PO TID 5 Days #75 ml 05/29/24 Elixir] prednisoLONE [Prednisolone] 5 mg PO TID 5 Days #25 ml 05/29/24 - Allergies Allergies/Adverse Reactions: Allergies Allergy/AdvReac Type Severity Reaction Status Date / Time No Known Drug Allergies Allergy Verified 05/29/24 09:50 - Social History Does the pt smoke?: No Smoking Status: Never smoker Does the pt drink ETOH?: No Does the pt have substance abuse?: No - Immunizations Immunizations are current?: Yes - POLST Patient has POLST: No PD ED PE NORMAL - Vitals Vital signs reviewed: Yes - General General: Alert and oriented X 3, No acute distress, Well developed/nourished - HEENT HEENT: Pharynx benign. No: Moist mucous membranes - Neck Neck: Supple, no meningeal sign, No adenopathy - Cardiac Cardiac: RRR, No murmur - Respiratory Respiratory: No respiratory distress, Clear bilaterally - Abdomen Abdomen: Normal bowel sounds, Soft, Non distended, Other (some tneder without guarding right upper abd without percussion nor rebound tenderness. ) Results - Vitals Vitals: Vital Signs - 24 hr 05/29/24 05/29/24 05/29/24 09:50 11:23 12:00 Temperature 36.9 C Heart Rate 68 158 H 60 Respiratory 15 15 Rate Blood Pressure 157/51 H 96/48 L 146/66 H O2 Saturation 98 97 97 05/29/24 05/29/24 05/29/24 12:30 13:00 13:30 Temperature Heart Rate 79 62 63 Respiratory 18 17 Rate Blood Pressure 158/54 H 154/56 H 133/49 H O2 Saturation 99 93 96 05/29/24 05/29/24 05/29/24 14:00 14:38 15:30 Temperature Heart Rate 61 64 63 Respiratory 16 16 16 Rate Blood Pressure 114/41 L 147/52 H O2 Saturation 97 94 98 05/29/24 05/29/24 16:00 17:29 Temperature Heart Rate 61 61 Respiratory 16 15 Rate Blood Pressure 134/76 H 152/55 H O2 Saturation 93 93 Oxygen O2 Source Room air - Labs Labs: Laboratory Tests 05/29/24 05/29/24 10:07 10:07 WBC 11.7 H RBC 3.82 L Hgb 9.3 L Hct 31.3 L MCV 81.9 MCH 24.3 L MCHC 29.7 L RDW 18.9 H Plt Count 234 MPV 10.3 Neut # (Auto) 10.3 H Lymph # (Auto) 0.3 L Mcdowell # (Auto) 0.9 Eos # (Auto) 0.1 Baso # (Auto) 0.1 Absolute Nucleated RBC 0.00 Nucleated RBC % 0.0 Sodium 136 Potassium 4.3 Chloride 102 Carbon Dioxide 28 Anion Gap 6.0 BUN 19 Creatinine 0.9 Estimated GFR (MDRD) 80 L Glucose 113 H Calcium 9.0 Phosphorus 2.7 Magnesium 1.7 Total Bilirubin 0.7 AST 28 ALT 11 Alkaline Phosphatase 303 H Total Creatine Kinase 16 L Total Protein 5.7 L Albumin 2.6 L Globulin 3.1 Albumin/Globulin Ratio 0.8 L Lipase < 10 L PD Medical Decision Making - ED course Complexity details: reviewed results (basic labs and cbc show baseline anemia, renal function okay. Lyte without notable abnormality. CLinically has low volume from poor intake. Throat on closer look does have redness and some white exudate c/w thrush, which makes more sense on his area of pain with swallowing.), re- evaluated patient (he feels less weak after IV fluids. Feeling improved ability to swalllow with GI meds. ), considered differential (has had pain in upper esophagus ad throat with swallowing and states things don't taste right since the RT he received to lumph node at parahepatic area last week. The RT was focused at node. Did not involve chest/esophagus area per se. Seems unusual to have pain in that area. ), d/w patient, d/w family (spouse) Departure - Departure Disposition: 01 Home, Self Care Clinical Impression: Odynophagia, Thrush of mouth and esophagus, Dehydration, Status post radiation therapy Condition: Stable Record reviewed to determine appropriate education?: Yes Follow-Up: Tricia Jackson ARNP [Primary Care Provider] - Prescriptions: diphenhydrAMINE ELIXIR [Benadryl Elixir] 12.5 mg PO TID 5 Days #75 ml Sucralfate [Carafate] 1 gm PO TID 5 Days #150 ml Fluconazole [Diflucan] 100 mg PO Q2D #2 tablet prednisoLONE [Prednisolone] 5 mg PO TID 5 Days #25 ml Comments: The throat does have some redness with a little bit of white exudate to the left. Presumption would be some thrush and this may be giving you the pain in the throat and esophagus. There can also be some irritation in the lower esophagus around the area that got radiation treatment. I would treat the parent thrush with Diflucan every 2 days for 3 doses. You were given some here. Continue with your omeprazole. You could can add famotidine daily as well for the next week or so. To help with symptoms, as well as some of the process of inflammation with it, I wrote for a liquid steroid prednisolone to use an amount of that along with s ome Benadryl liquid and swallow that down 3 times a day. This will help with inflammation and secretions and act to numb it a bit. In addition then coating the esophagus and stomach with sacral fate 3-4 times daily for the next several days while the condition is improving. Small frequent fluids and liquid intake or soft food over the next several days. I would anticipate improvement over the next few days with improved intake to maintain hydration. Recheck if not better in the next few day timeframe. Return if needed. Forms: PCP List Discharge Date/Time: 05/29/24 17:40
[2024-05-29] MEDS: CHERRY SYRUP 10 ML UDC PO ONE (15:53)
[2024-05-29] MEDS: DEXAMETHASONE 10 MG/ML VIAL PO STA (15:53)
[2024-05-29] MEDS: diphenhydrAMINE ELIXIR 25 MG/10 ML UDC PO STA (15:53)
[2024-05-29] MEDS: FLUCONAZOLE 100 MG TABLET PO STA (15:53)
[2024-05-29 16:23] VITALS: O2SAT 93
[2024-05-29 17:38] VITALS: BP 152/55
== END 2024-05-29 17:40 | disposition home or self-care (01) ==
LOC: ED 09:29
DX: B37.0 Candidal stomatitis (principal); E86.0 Dehydration; Z79.60 Long term (current) use of unspecified immunomodulators and immunosuppressants; I11.0 Hypertensive heart disease with heart failure; I50.9 Heart failure, unspecified; I25.10 Atherosclerotic heart disease of native coronary artery without angina pectoris; E11.9 Type 2 diabetes mellitus without complications; K74.60 Unspecified cirrhosis of liver; Z86.73 Personal history of transient ischemic attack (TIA), and cerebral infarction without residual deficits; Z95.1 Presence of aortocoronary bypass graft; Z79.84 Long term (current) use of oral hypoglycemic drugs; Z79.02 Long term (current) use of antithrombotics/antiplatelets; Z79.899 Other long term (current) drug therapy
CPT/HCPCS: 36415; 80053; 82550; 83690; 83735; 84100; 85025; 96374; 99283; 99284; A9270